=== PATIENT | female | born 1970 | race Caucasian/White ===

== ENCOUNTER → 2016-07-06 | Outpatient (CLI) | payer OTHER ==
--- NOTE | 2016-07-06 11:37 | REP ---
Clinical: Pain. Technique: AP, lateral, bilateral oblique views of the right foot. Findings: Age-related degenerative changes are appreciated primarily involving the tarsometatarsal joints and talonavicular joint. No acute fracture dislocation. No subcutaneous emphysema or radiodense foreign body. Impression: Moderate age-related degenerative changes. Signed by Jay Aguillon MD 07/06/2016 11:28 A
== END ==
LOC: M WUC 11:03
PROVIDERS: ATTEND Physician Assistant
DX: M79.671 Pain in right foot (principal); M19.071 Primary osteoarthritis, right ankle and foot

== ENCOUNTER → 2016-07-14 | Outpatient (REF) | payer OTHER ==
[2016-07-14 15:33] LABS: MEAN CORPUSCULAR HEMOGLOBIN 32.2 pg (27.0-33.0); MEAN CORPUSCULAR HGB CONC 33.9 g/dl (32.0-36.5); RED CELL DISTRIBUTION WIDTH 11.8 % (11.5-14.5); WHITE BLOOD COUNT 13.5 K/mm3 (4.0-10.0)
[2016-07-14 15:38] LABS: ALBUMIN 4.1 GM/DL (3.2-5.2); ALBUMIN/GLOBULIN RATIO 1.24 (1.00-1.93); ALKALINE PHOSPHATASE 77 U/L (45-117); ALT/SGPT 25 U/L (12-78); ANION GAP 7 MEQ/L (8-16); AST/SGOT 14 U/L (15-37); BILIRUBIN,TOTAL 0.3 MG/DL (0.2-1.0); BLOOD UREA NITROGEN 19 MG/DL (7-18); CALCIUM LEVEL 9.5 MG/DL (8.5-10.1); CARBON DIOXIDE LEVEL 26 MEQ/L (21-32); CHLORIDE LEVEL 107 MEQ/L (98-107); CHOLESTEROL LEVEL 228 MG/DL (<200); CREATININE FOR GFR 0.98 MG/DL (0.55-1.02); GLOMERULAR FILTRATION RATE > 60.0 (>58); GLUCOSE, FASTING 89 MG/DL (70-105); POTASSIUM SERUM 4.7 MEQ/L (3.5-5.1); SODIUM LEVEL 140 MEQ/L (136-145); TOTAL PROTEIN 7.4 GM/DL (6.4-8.2); TRIGLYCERIDES LEVEL 109 MG/DL (<150)
== END ==
LOC: M SFHCSACK 11:29
PROVIDERS: ATTEND Physician Assistant
DX: F17.200 Nicotine dependence, unspecified, uncomplicated (principal); R42 Dizziness and giddiness; E78.2 Mixed hyperlipidemia

== ENCOUNTER → 2016-08-18 | Outpatient (REF) | payer OTHER ==
[2016-08-18 16:28] LABS: FREE T4 1.02 NG/DL (0.76-1.46)
== END ==
LOC: M SFHCSACK 10:55
PROVIDERS: ATTEND Physician Assistant
DX: L65.9 Nonscarring hair loss, unspecified (principal)

== ENCOUNTER → 2016-11-15 | Outpatient (REF) | payer OTHER ==
[~2016-11-15] MED LIST: ALBU17IN PO; CEPH500C PO; HYDR-3713 PO; unknown antibiotic PO
[2016-11-15 16:22] LABS: ALBUMIN/GLOBULIN RATIO 1.25 (1.00-1.93); ALKALINE PHOSPHATASE 76 U/L (45-117); ALT/SGPT 24 U/L (12-78); ANION GAP 9 MEQ/L (8-16); AST/SGOT 11 U/L (15-37); BILIRUBIN,TOTAL 0.3 MG/DL (0.2-1.0); BLOOD UREA NITROGEN 13 MG/DL (7-18); CARBON DIOXIDE LEVEL 25 MEQ/L (21-32); CHLORIDE LEVEL 105 MEQ/L (98-107); CHOLESTEROL LEVEL 249 MG/DL (<200); CREATININE FOR GFR 0.95 MG/DL (0.55-1.02); GLOMERULAR FILTRATION RATE > 60.0 (>58); GLUCOSE, FASTING 92 MG/DL (70-105); POTASSIUM SERUM 4.6 MEQ/L (3.5-5.1); SODIUM LEVEL 139 MEQ/L (136-145); TOTAL PROTEIN 7.2 GM/DL (6.4-8.2); TRIGLYCERIDES LEVEL 120 MG/DL (<150)
[2016-11-15 16:28] LABS: BASO # 0.1 K/mm3 (0.0-0.2); BASO % 0.7 % (0.0-1.0); EOS # 0.1 K/mm3 (0.0-0.50); EOS % 1.3 % (0.0-3.0); LARGE UNSTAINED CELL # 0.3 K/mm3 (0.0-0.4); LARGE UNSTAINED CELL % 3.3 % (0.0-4.0); LYMPH # 3.2 K/mm3 (1.5-4.5); LYMPH % 27.5 % (24.0-44.0); MEAN CORPUSCULAR HEMOGLOBIN 33.5 pg (27.0-33.0); MEAN CORPUSCULAR HGB CONC 34.1 g/dl (32.0-36.5); MEAN CORPUSCULAR VOLUME 98.2 fl (80.0-96.0); MONO # 0.9 K/mm3 (0.0-0.8); MONO % 8.3 % (0.0-5.0); NEUTROPHILS % 58.8 % (36.0-66.0); PLATELET COUNT, AUTOMATED 264 k/mm3 (150-450); RED CELL DISTRIBUTION WIDTH 12.1 % (11.5-14.5); WHITE BLOOD COUNT 10.2 K/mm3 (4.0-10.0)
== END ==
LOC: M SFHCSACK 08:09
PROVIDERS: ATTEND Physician Assistant
DX: E78.2 Mixed hyperlipidemia (principal)

== ENCOUNTER 2016-11-22 07:22 | Day surgery (SDC) | payer OTHER ==
[~2016-11-22] VITALS: Ht 172.7 cm; Wt 93.0 kg
[~2016-11-22 07:22] MED LIST changes: -ALBU17IN PO; +BUPIVACAINE HCL 0.5% 30 ML VIAL As Ordered ONE; -CEPH500C PO; -HYDR-3713 PO; +LIDOCAINE 2% MDV 20 ML VIAL As Ordered ONE
[2016-11-22] MEDS ORDERED: LR 1,000 ML IV ONE (07:30)
[2016-11-22] MEDS ORDERED: CEPH500C PO (08:01)
[2016-11-22] MEDS ORDERED: ALBU17IN PO (08:01)
[2016-11-22 08:04] LABS: CONTROL LINE UCG INT CTR LINE PRESENT
[2016-11-22] MEDS ORDERED: dexameTHASONE 4 MG/ML 1ML VIAL (J1100) As Ordered ONE (08:55)
[2016-11-22] MEDS ORDERED: MIDAZOLAM INJ 2 MG/2 ML VIAL (J2250) As Ordered ONE (08:57)
[2016-11-22] MEDS ORDERED: fentaNYL 100 MCG/2 ML INJECTION (J3010) As Ordered ONE (08:57)
[2016-11-22] MEDS ORDERED: PROPOFOL 200 MG/20 ML VIAL As Ordered ONE (08:57)
[2016-11-22] MEDS ORDERED: HYDR-3713 PO (09:48)
[2016-11-22 11:05] VITALS: BP 122/79
--- NOTE | 2016-11-22 23:24 | RO ---
DATE OF PROCEDURE: 11/22/2016 PREPROCEDURE DIAGNOSIS: Right 3rd metatarsal deformity and plantar cyst. POSTPROCEDURE DIAGNOSIS: Right 3rd metatarsal deformity and plantar cyst. OPERATIVE PROCEDURE: Right 3rd metatarsal shortening osteotomy and excision of plantar cyst. SURGEON: Phil Patel DPM PRIVATE ADVISOR: None. ANESTHESIA: Monitored anesthesia care with preoperative injection of 12 mL of 1:1 mixture of 1% lidocaine and plain 0.50% Marcaine. ESTIMATED BLOOD LOSS: Minimal. MATERIALS: Arthrex 2.5, headless screw, #3-0 Vicryl, #4-0 Vicryl, #4-0 nylon and #3-0 nylon INJECTABLES: 1 mL Decadron. COMPLICATIONS: None. CONDITION: Stable. SPECIMEN: Cyst right plantar foot. Cecelia Fuller if a 46-year-old female presents to [facility] with complaints of painful metatarsal deformity and plantar cyst. She presents today for surgical correction. The patient's side and site were identified and marked in preoperative holding area. Consent was reviewed and obtained. All risks, complications and alternatives to the procedure were explained to the patient in detail. All questions were answered. DESCRIPTION OF OPERATION: The patient was brought to the operating room and placed on operating room table in supine position. Monitored anesthesia care was delivered by the anesthesia team. Preoperative injection of 12 mL of 1:1 mixture of 1% lidocaine plain and 0.50% Marcaine plain were injected into the right foot. The patient received Ancef preoperatively. Right foot was prepped and draped in normal sterile fashion. Tourniquet was applied to the right ankle and inflated to 250 mmHg. A dorsal incision was drawn over the 3rd metatarsal phalangeal joint and carried through with a #15 blade. Dissection was carried down until the joint was identified. A linear incision was made exposing the metatarsal head. A McGlamry elevator was used to free the medial, lateral and plantar structures surrounding the 3rd metatarsal head. Following this an osteotomy was performed of the head using sagittal saw. The metatarsal head was transposed proximally approximately 4 mm. This was fixated with an Arthrex 2.5 headless screw. The overlying bone ledge was removed with rongeur and smoothed with rasp. Site was irrigated with normal saline. Capsular repair was performed with #3-0 Vicryl, subcutaneous closure with #4-0 Vicryl and skin closed with #4-0 nylon. Next, attention was paid to the plantar cyst. The overlying callous was debrided and the cyst was noted to penetrate through the dermis. This was excised in elliptical fashion using #15 blade and this was sent for pathology. Plantar incision was repaired with #3-0 nylon. 1 mL Decadron was injected postoperatively. Sterile dressings were applied. Tourniquet was deflated. The patient was brought to post anesthesia care unit (PACU), vitals signs stable, neurovascular status intact. She will be partial weightbearing to the right foot. She will start her prescribed antibiotics. She will followup in office in two days.
== END 2016-11-22 11:21 | disposition home or self-care (01) ==
LOC: M SDC 07:22
PROVIDERS: ATTEND Podiatrist Foot & Ankle Surgery
DX: L72.3 Sebaceous cyst (principal); Q66.9 Congenital deformity of feet, unspecified; F41.9 Anxiety disorder, unspecified; F32.9 Major depressive disorder, single episode, unspecified
CPT/HCPCS: 28043; 28308; 84703; 88304; 97116; C1776

== ENCOUNTER → 2017-02-09 | Outpatient (REF) | payer OTHER ==
[~2017-02-09] MED LIST changes: +ALBU17IN PO; -BUPIVACAINE HCL 0.5% 30 ML VIAL As Ordered ONE; +CEPH500C PO; +HYDR-3713 PO; -LIDOCAINE 2% MDV 20 ML VIAL As Ordered ONE
== END ==
LOC: M LAB REF 11:43
PROVIDERS: ATTEND Physician Assistant
DX: L02.412 Cutaneous abscess of left axilla (principal)

== ENCOUNTER → 2017-03-22 | Outpatient (CLI) | payer OTHER ==
--- NOTE | 2017-03-22 18:16 | REP ---
AP, LATERAL THORACIC SPINE, TWO VIEWS: HISTORY: Muscle strain. There is no acute fracture or subluxation. The intervertebral discs are normal in height. IMPRESSION:There is no acute fracture or subluxation. Signed by Gorge Durham MD 03/22/2017 06:26 P
--- NOTE | 2017-03-22 18:17 | REP ---
PARTIAL LUMBAR SPINE, THREE VIEWS: HISTORY: Muscle strain. There is no acute fracture. The L4-5 and L5-S1 intervertebral discs are decreased in height consistent with disc degeneration. There are 3 mm of retrolisthesis of L5 on S1. IMPRESSION: Degenerative change as described above. Signed by Gorge Durham MD 03/22/2017 06:27 P
--- NOTE | 2017-03-22 18:27 | REP ---
AP AND LATERAL CERVICAL SPINE: HISTORY: Muscle strain. There is no acute fracture. The C4-5 intervertebral disc is decreased in height consistent with disc degeneration. Osteophytes are present on C4 and C5. There are 2 mm of retrolisthesis of C4 and C5. IMPRESSION: Degenerative change as described above. Signed by Gorge Durham MD 03/22/2017 06:27 P
== END ==
LOC: M WUC 16:42
PROVIDERS: ATTEND Physician Assistant
DX: S16.1XXA Strain of muscle, fascia and tendon at neck level, initial encounter (principal); M54.6 Pain in thoracic spine; M51.36 Other intervertebral disc degeneration, lumbar region; M50.321 Other cervical disc degeneration at C4-C5 level; X58.XXXA Exposure to other specified factors, initial encounter; Y92.9 Unspecified place or not applicable; Y99.8 Other external cause status

== ENCOUNTER → 2017-03-28 | Outpatient (REF) | payer OTHER ==
[2017-03-28 14:56] LABS: BASO # 0.1 10^3/uL (0.0-0.2); BASO % 0.8 % (0.0-1.0); EOS # 0.1 10^3/uL (0.0-0.50); IMMATURE GRANULOCYTE % 0.2 % (0-0); LYMPH # 3.2 10^3/uL (1.5-4.5); LYMPH % 25.9 % (24.0-44.0); MEAN CORPUSCULAR HGB CONC 34.4 g/dl (32.0-36.5); MEAN CORPUSCULAR VOLUME 93.1 fl (80.0-96.0); MONO # 0.9 10^3/uL (0.0-0.8); MONO % 7.4 % (0.0-5.0); NEUTROPHILS # 7.9 10^3/uL (1.8-7.7); NEUTROPHILS % 64.7 % (36.0-66.0); PLATELET COUNT, AUTOMATED 261 10^3/uL (150-450); RED CELL DISTRIBUTION WIDTH 12.2 % (11.5-14.5); WHITE BLOOD COUNT 12.2 10^3/uL (4.0-10.0)
[2017-03-28 15:20] LABS: ALBUMIN 4.1 GM/DL (3.2-5.2); ALBUMIN/GLOBULIN RATIO 1.32 (1.00-1.93); ALKALINE PHOSPHATASE 79 U/L (45-117); ALT/SGPT 22 U/L (12-78); ANION GAP 5 MEQ/L (8-16); AST/SGOT 12 U/L (7-37); BILIRUBIN,TOTAL 0.4 MG/DL (0.2-1.0); BLOOD UREA NITROGEN 15 MG/DL (7-18); CALCIUM LEVEL 9.4 MG/DL (8.5-10.1); CARBON DIOXIDE LEVEL 28 MEQ/L (21-32); CHLORIDE LEVEL 109 MEQ/L (98-107); CHOLESTEROL LEVEL 210 MG/DL (<200); GLOMERULAR FILTRATION RATE > 60.0 (>58); GLUCOSE, FASTING 91 MG/DL (70-105); POTASSIUM SERUM 4.6 MEQ/L (3.5-5.1); SODIUM LEVEL 142 MEQ/L (136-145); TOTAL PROTEIN 7.2 GM/DL (6.4-8.2); TRIGLYCERIDES LEVEL 70 MG/DL (<150)
== END ==
LOC: M SFHCSACK 07:55
PROVIDERS: ATTEND Physician Assistant
DX: F41.0 Panic disorder [episodic paroxysmal anxiety] (principal); E78.2 Mixed hyperlipidemia

== ENCOUNTER → 2017-07-01 | Outpatient (CLI) | payer OTHER ==
[2017-07-01 17:11] LABS: HEMOGLOBIN 14.2 g/dl (12.0-16.0); MEAN CORPUSCULAR HEMOGLOBIN 31.7 pg (27.0-33.0); MEAN CORPUSCULAR HGB CONC 33.8 g/dl (32.0-36.5); MEAN CORPUSCULAR VOLUME 93.8 fl (80.0-96.0); PLATELET COUNT, AUTOMATED 251 10^3/uL (150-450); RED BLOOD COUNT 4.48 10^6/uL (4.00-5.40); RED CELL DISTRIBUTION WIDTH 12.1 % (11.5-14.5); WHITE BLOOD COUNT 9.9 10^3/uL (4.0-10.0)
[2017-07-01 17:24] LABS: ANION GAP 8 MEQ/L (8-16); BLOOD UREA NITROGEN 13 MG/DL (7-18); CALCIUM LEVEL 9.3 MG/DL (8.5-10.1); CARBON DIOXIDE LEVEL 25 MEQ/L (21-32); CHLORIDE LEVEL 109 MEQ/L (98-107); CREATININE FOR GFR 1.06 MG/DL (0.55-1.30); GLOMERULAR FILTRATION RATE 59.4 (>58); GLUCOSE, FASTING 99 MG/DL (70-100); POTASSIUM SERUM 4.4 MEQ/L (3.5-5.1); SODIUM LEVEL 142 MEQ/L (136-145)
== END ==
LOC: M WUC 11:16
DX: Z01.818 Encounter for other preprocedural examination (principal); M20.62 Acquired deformities of toe(s), unspecified, left foot
CPT/HCPCS: 80048

== ENCOUNTER 2017-07-06 09:37 | Day surgery (SDC) | payer OTHER ==
[2017-07-06 10:31] LABS: CONTROL LINE UCG INT CTR LINE PRESENT; URINE PREG TEST NEGATIVE (NEGATIVE)
[2017-07-06] MEDS: LR 1,000 ML IV ×2 (10:57)
[2017-07-06] MEDS ORDERED: fentaNYL 100 MCG/2 ML INJECTION (J3010) As Ordered ×2 (12:27)
[2017-07-06] MEDS ORDERED: LIDOCAINE 2% INJ 100 MG/5 ML SDV (FOR ANES.) As Ordered ×2 (12:28)
[2017-07-06] MEDS ORDERED: PROPOFOL 200 MG/20 ML VIAL As Ordered ×4 (12:28)
[2017-07-06] MEDS ORDERED: MIDAZOLAM INJ 2 MG/2 ML VIAL (J2250) As Ordered ×2 (12:28)
[2017-07-06] MEDS: LIDOCAINE 1% MDV 20ML VIAL As Ordered ×2 (13:39)
[2017-07-06] MEDS: BUPIVACAINE HCL 0.5% 10 ML VIAL As Ordered ×2 (13:39)
[2017-07-06] MEDS: dexameTHASONE 4 MG/ML 1ML VIAL (J1100) As Ordered ×2 (14:15)
== END 2017-07-06 15:28 | disposition home or self-care (01) ==
LOC: M SDC 09:37
DX: M21.6X2 Other acquired deformities of left foot (principal); E78.00 Pure hypercholesterolemia, unspecified; M72.2 Plantar fascial fibromatosis; M77.32 Calcaneal spur, left foot; M77.31 Calcaneal spur, right foot; F12.90 Cannabis use, unspecified, uncomplicated; Z72.0 Tobacco use
CPT/HCPCS: 28308

== ENCOUNTER → 2017-12-01 | Outpatient (CLI) | payer OTHER ==
[2017-12-01 19:57] LABS: ALBUMIN 4.3 GM/DL (3.2-5.2); ALBUMIN/GLOBULIN RATIO 1.23 (1.00-1.93); ALKALINE PHOSPHATASE 103 U/L (45-117); ALT/SGPT 21 U/L (12-78); ANION GAP 8 MEQ/L (8-16); AST/SGOT 10 U/L (7-37); BILIRUBIN,TOTAL 0.4 MG/DL (0.2-1.0); BLOOD UREA NITROGEN 11 MG/DL (7-18); C REACTIVE PROTEIN QUANTITATIV < 0.30 MG/DL (0.00-0.30); CALCIUM LEVEL 10.1 MG/DL (8.5-10.1); CARBON DIOXIDE LEVEL 24 MEQ/L (21-32); CHLORIDE LEVEL 109 MEQ/L (98-107); CREATININE FOR GFR 1.12 MG/DL (0.55-1.30); GLOMERULAR FILTRATION RATE 55.8 (>58); GLUCOSE, FASTING 83 MG/DL (70-100); LIPASE 433 U/L (73-393); POTASSIUM SERUM 4.3 MEQ/L (3.5-5.1); SODIUM LEVEL 141 MEQ/L (136-145); TOTAL PROTEIN 7.8 GM/DL (6.4-8.2)
[2017-12-01 20:07] LABS: BASO # 0.1 10^3/uL (0.0-0.2); BASO % 0.6 % (0.0-1.0); EOS % 0.3 % (0.0-3.0); HEMATOCRIT 42.8 % (36.0-47.0); HEMOGLOBIN 14.6 g/dl (12.0-15.5); IMMATURE GRANULOCYTE % 0.3 % (0-3.0); LYMPH # 2.9 10^3/uL (1.5-4.5); LYMPH % 24.3 % (24.0-44.0); MEAN CORPUSCULAR HEMOGLOBIN 31.8 pg (27.0-33.0); MEAN CORPUSCULAR HGB CONC 34.1 g/dl (32.0-36.5); MEAN CORPUSCULAR VOLUME 93.2 fl (80.0-96.0); MONO # 0.9 10^3/uL (0.0-0.8); MONO % 7.9 % (0.0-5.0); NEUTROPHILS # 7.8 10^3/uL (1.8-7.7); NEUTROPHILS % 66.6 % (36.0-66.0); PLATELET COUNT, AUTOMATED 278 10^3/uL (150-450); RED BLOOD COUNT 4.59 10^6/uL (4.00-5.40); RED CELL DISTRIBUTION WIDTH 12.1 % (11.5-14.5); WHITE BLOOD COUNT 11.7 10^3/uL (4.0-10.0)
== END ==
LOC: M WUC 15:48
DX: R11.2 Nausea with vomiting, unspecified (principal); R63.4 Abnormal weight loss
CPT/HCPCS: 83690

== ENCOUNTER → 2017-12-08 | Outpatient (CLI) | payer OTHER ==
[~2017-12-08] MED LIST changes: -ALBU17IN PO; -CEPH500C PO; +GASTROGRAFIN SOLUTION 30ML (Q9963) As Ordered; -HYDR-3713 PO; +ISOVUE-370 76% 100ML VIAL (Q9967) As Ordered; -unknown antibiotic PO
== END ==
LOC: M RAD 14:04
DX: R11.2 Nausea with vomiting, unspecified (principal); R63.4 Abnormal weight loss; K76.89 Other specified diseases of liver; K57.30 Diverticulosis of large intestine without perforation or abscess without bleeding; E27.9 Disorder of adrenal gland, unspecified
CPT/HCPCS: Q9963

== ENCOUNTER 2017-12-20 11:49 | Day surgery (SDC) | payer OTHER ==
[2017-12-20] MEDS ORDERED: fentaNYL 100 MCG/2 ML INJECTION (J3010) As Ordered (13:41)
[2017-12-20] MEDS ORDERED: LIDOCAINE 2% INJ 100 MG/5 ML SDV (FOR ANES.) As Ordered (13:41)
[2017-12-20] MEDS ORDERED: LIDOCAINE 2% INJ 100 MG/5 ML SYRINGE As Ordered (13:41)
[2017-12-20] MEDS ORDERED: PROPOFOL 200 MG/20 ML VIAL As Ordered (13:48)
== END 2017-12-20 14:32 | disposition home or self-care (01) ==
LOC: M OPP 11:49
DX: K22.8 Other specified diseases of esophagus (principal); K44.9 Diaphragmatic hernia without obstruction or gangrene; K31.9 Disease of stomach and duodenum, unspecified; F17.210 Nicotine dependence, cigarettes, uncomplicated; J45.909 Unspecified asthma, uncomplicated; M25.60 Stiffness of unspecified joint, not elsewhere classified; F41.9 Anxiety disorder, unspecified; F32.9 Major depressive disorder, single episode, unspecified; R51 Headache; R06.83 Snoring; Z79.899 Other long term (current) drug therapy; Z98.51 Tubal ligation status; Z87.09 Personal history of other diseases of the respiratory system
CPT/HCPCS: 43239

== ENCOUNTER 2018-01-15 11:04 | Emergency (ER) | payer OTHER ==
[2018-01-15] MEDS ORDERED: MORPHINE 2 MG/ML 1ML SYRINGE (J2270) IV (11:15)
[2018-01-15] MEDS: ONDANSETRON 4MG/2ML VIAL (J2405) IV (11:20)
[2018-01-15] MEDS: NS 1,000 ML IV ×2 (11:20→12:54)
[2018-01-15 11:31] LABS: BASO # 0.1 10^3/uL (0.0-0.2); BASO % 0.6 % (0.0-1.0); EOS % 0.3 % (0.0-3.0); HEMATOCRIT 41.1 % (36.0-47.0); HEMOGLOBIN 14.2 g/dl (12.0-15.5); IMMATURE GRANULOCYTE % 0.4 % (0-3.0); LYMPH # 2.2 10^3/uL (1.5-4.5); LYMPH % 19.9 % (24.0-44.0); MEAN CORPUSCULAR HEMOGLOBIN 31.8 pg (27.0-33.0); MEAN CORPUSCULAR HGB CONC 34.5 g/dl (32.0-36.5); MEAN CORPUSCULAR VOLUME 92.2 fl (80.0-96.0); MONO # 0.7 10^3/uL (0.0-0.8); MONO % 6.6 % (0.0-5.0); NEUTROPHILS # 8.1 10^3/uL (1.8-7.7); NEUTROPHILS % 72.2 % (36.0-66.0); PLATELET COUNT, AUTOMATED 324 10^3/uL (150-450); RED BLOOD COUNT 4.46 10^6/uL (4.00-5.40); WHITE BLOOD COUNT 11.3 10^3/uL (4.0-10.0)
[2018-01-15 11:51] LABS: CONTROL LINE HCG INT CTR LINE PRESENT; HCG, SERUM QUALITATIVE NEGATIVE (NEGATIVE)
[2018-01-15 11:58] LABS: ALBUMIN 3.8 GM/DL (3.2-5.2); ALBUMIN/GLOBULIN RATIO 1.06 (1.00-1.93); ALKALINE PHOSPHATASE 86 U/L (45-117); ALT/SGPT 20 U/L (12-78); AMYLASE 60 U/L (25-115); ANION GAP 8 MEQ/L (8-16); AST/SGOT 14 U/L (7-37); BILIRUBIN,DIRECT 0.1 MG/DL (0.0-0.2); BILIRUBIN,TOTAL 0.5 MG/DL (0.2-1.0); BLOOD UREA NITROGEN 13 MG/DL (7-18); CALCIUM LEVEL 9.3 MG/DL (8.5-10.1); CARBON DIOXIDE LEVEL 23 MEQ/L (21-32); CHLORIDE LEVEL 110 MEQ/L (98-107); CREATININE FOR GFR 1.08 MG/DL (0.55-1.30); GLOMERULAR FILTRATION RATE 58.1 (>58); GLUCOSE, FASTING 111 MG/DL (70-100); LIPASE 291 U/L (73-393); POTASSIUM SERUM 4.2 MEQ/L (3.5-5.1); SODIUM LEVEL 141 MEQ/L (136-145); TOTAL PROTEIN 7.4 GM/DL (6.4-8.2)
[2018-01-15 12:00] LABS: LACTIC ACID SEPSIS PROTOCOL 1.9 MMOL/L (0.4-2.0)
[2018-01-15 12:23] LABS: AMPHETAMINES LEVEL URINE NEGATIVE (NEGATIVE); BARBITURATES URINE NEGATIVE (NEGATIVE); BENZODIAZEPINES URINE NEGATIVE (NEGATIVE); CANNABINOIDS URINE POSITIVE (NEGATIVE); COCAINE METABOLITE URINE NEGATIVE (NEGATIVE); METHADONE URINE NEGATIVE (NEGATIVE); OPIATES URINE NEGATIVE (NEGATIVE); PHENCYCLIDINE URINE NEGATIVE (NEGATIVE)
[2018-01-15] MEDS ORDERED: ISOVUE-370 76% 100ML VIAL (Q9967) As Ordered (12:49)
[2018-01-15] MEDS: LORazepam 2 MG/ML VIAL (J2060) IV (12:54)
== END 2018-01-15 16:46 | disposition home or self-care (01) ==
LOC: M ED 11:04
DX: R11.10 Vomiting, unspecified (principal); F12.188 Cannabis abuse with other cannabis-induced disorder; F41.9 Anxiety disorder, unspecified; F32.9 Major depressive disorder, single episode, unspecified; F17.200 Nicotine dependence, unspecified, uncomplicated
CPT/HCPCS: J2405

== ENCOUNTER → 2018-01-19 | Outpatient (CLI) | payer OTHER | LOC: M RAD 17:36 | DX: R11.2 Nausea with vomiting, unspecified (principal); R63.4 Abnormal weight loss ==

== ENCOUNTER 2018-02-01 07:54 | Inpatient (IN) | payer OTHER ==
[2018-02-01 09:07] LABS: BASO % 0.3 % (0.0-1.0); EOS % 0.1 % (0.0-3.0); HEMATOCRIT 36.3 % (36.0-47.0); HEMOGLOBIN 12.6 g/dl (12.0-15.5); IMMATURE GRANULOCYTE % 0.7 % (0-3.0); LYMPH # 1.4 10^3/uL (1.5-4.5); MEAN CORPUSCULAR HEMOGLOBIN 32.8 pg (27.0-33.0); MEAN CORPUSCULAR HGB CONC 34.7 g/dl (32.0-36.5); MEAN CORPUSCULAR VOLUME 94.5 fl (80.0-96.0); MONO # 1.1 10^3/uL (0.0-0.8); MONO % 6.7 % (0.0-5.0); NEUTROPHILS # 13.2 10^3/uL (1.8-7.7); NEUTROPHILS % 83.2 % (36.0-66.0); PLATELET COUNT, AUTOMATED 255 10^3/uL (150-450); RED BLOOD COUNT 3.84 10^6/uL (4.00-5.40); RED CELL DISTRIBUTION WIDTH 12.9 % (11.5-14.5); WHITE BLOOD COUNT 15.9 10^3/uL (4.0-10.0)
[2018-02-01] MEDS: LORazepam 2 MG/ML VIAL (J2060) IV (09:22)
[2018-02-01] MEDS: PROMETHAZINE INJ 25 MG/ML VIAL (J2550) IM (09:22)
[2018-02-01 09:35] LABS: ALKALINE PHOSPHATASE 64 U/L (45-117); ALT/SGPT 20 U/L (12-78); ANION GAP 8 MEQ/L (8-16); AST/SGOT 7 U/L (7-37); BILIRUBIN,TOTAL 0.3 MG/DL (0.2-1.0); BLOOD UREA NITROGEN 12 MG/DL (7-18); CALCIUM LEVEL 9.5 MG/DL (8.5-10.1); CARBON DIOXIDE LEVEL 25 MEQ/L (21-32); CHLORIDE LEVEL 107 MEQ/L (98-107); CREATININE FOR GFR 0.95 MG/DL (0.55-1.30); GLOMERULAR FILTRATION RATE > 60.0 (>58); GLUCOSE, FASTING 114 MG/DL (70-100); SODIUM LEVEL 140 MEQ/L (136-145)
[2018-02-01 09:36] LABS: ETHYL ALCOHOL (ETHANOL) < 0.003 % (0.000-0.010)
[2018-02-01 09:36] LABS: ALBUMIN 3.4 GM/DL (3.2-5.2); ALBUMIN/GLOBULIN RATIO 1.31 (1.00-1.93); BILIRUBIN,DIRECT < 0.1 MG/DL (0.0-0.2); LIPASE 184 U/L (73-393)
[2018-02-01] MEDS: MORPHINE 4 MG/ML 1ML VIAL/SYRINGE (J2270) IV (11:12)
[2018-02-01] MEDS ORDERED: GLUCAGON FOR INJ 1 MG VIAL (J1610) SC (11:45)
[2018-02-01] MEDS ORDERED: GLUCOSE 4 GM CHEW TABLET PO (11:45)
[2018-02-01] MEDS ORDERED: DEXTROSE 50% 50 ML SYRINGE IV (11:45)
[2018-02-01] MEDS: KETOROLAC 30 MG/ML VIAL (J1885) IV ×2 (12:00→17:53)
[2018-02-01] MEDS ORDERED: CREON-24 CAPSULE PO (12:30)
[2018-02-01 12:44] LABS: C REACTIVE PROTEIN QUANTITATIV < 0.30 MG/DL (0.00-0.30); PREALBUMIN 25.1 MG/DL (20.0-40.0)
[2018-02-01] MEDS ORDERED: PROHANCE 279.3MG/ML 15ML VIAL (A9576) As Ordered (13:26)
[2018-02-01 14:11] LABS: ERYTHROCYTE SEDIMENTATION RATE 8 mm/hr (0-20)
[2018-02-01] MEDS: HEPARIN SOD (PORCINE) 5000 UNITS/ML VIAL SC ×2 (14:54→20:43)
[2018-02-01] MEDS: NS 1,000 ML IV (14:55)
[2018-02-01 15:37] LABS: LACTIC ACID SEPSIS PROTOCOL 1.2 MMOL/L (0.4-2.0)
[2018-02-01] MEDS: PANTOPRAZOLE 40MG INJ (PROTONIX) (C9113) IV (17:53)
[2018-02-01] MEDS: NICOTINE 14 MG/24 HR TRANSDERMAL TD (17:53)
[2018-02-01] MEDS: CREON-24 CAPSULE PO (17:53)
[2018-02-01 18:19] LABS: AMORPHOUS SEDIMENT LARGE (NEGATIVE); APPEARANCE, URINE CLOUDY (CLEAR); BACTERIA, URINE AUTO NEGATIVE (NEGATIVE); BILIRUBIN, URINE AUTO NEGATIVE (NEGATIVE); BLOOD, URINE BLOOD NEGATIVE (NEGATIVE); COLOR, URINE YELLOW (YELLOW); GLUCOSE, URINE (UA) AUTO NEGATIVE (NEGATIVE); KETONE, URINE AUTO NEGATIVE (NEGATIVE); LEUKOCYTE ESTERASE, URINE AUTO NEGATIVE (NEGATIVE); MUCUS, URINE SMALL (NEGATIVE); NITRITE, URINE AUTO NEGATIVE (NEGATIVE); PROTEIN, URINE AUTO NEGATIVE (NEGATIVE); RBC, URINE AUTO 3 /HPF (0-3); SPECIFIC GRAVITY URINE AUTO 1.015 (1.002-1.035); SQUAMOUS EPITHELIAL CELL UR AU 0 /HPF (0-6); UROBILINOGEN, URINE AUTO 0.2 mg/dL (0.0-2.0); WBC, URINE AUTO 1 /HPF (0-3); YEAST LIKE CELL URINE AUTO SMALL
[2018-02-01] MEDS: ONDANSETRON 4MG/2ML VIAL (J2405) IV (20:41)
[2018-02-02] MEDS: NS 1,000 ML IV (00:44)
[2018-02-02 00:47] LABS: BEDSIDE GLUCOSE 109 MG/DL (70-105)
[2018-02-02] MEDS: KETOROLAC 30 MG/ML VIAL (J1885) IV ×2 (05:55→08:57)
[2018-02-02] MEDS: ONDANSETRON 4MG/2ML VIAL (J2405) IV ×3 (05:55→17:03)
[2018-02-02] MEDS: HEPARIN SOD (PORCINE) 5000 UNITS/ML VIAL SC ×3 (05:55→21:32)
[2018-02-02 06:13] LABS: BASO % 0.2 % (0.0-1.0); EOS % 0.1 % (0.0-3.0); IMMATURE GRANULOCYTE % 0.3 % (0-3.0); LYMPH # 1.9 10^3/uL (1.5-4.5); LYMPH % 15.3 % (24.0-44.0); MEAN CORPUSCULAR HEMOGLOBIN 32.3 pg (27.0-33.0); MEAN CORPUSCULAR HGB CONC 34.2 g/dl (32.0-36.5); MEAN CORPUSCULAR VOLUME 94.5 fl (80.0-96.0); MONO % 7.6 % (0.0-5.0); NEUTROPHILS # 9.7 10^3/uL (1.8-7.7); NEUTROPHILS % 76.5 % (36.0-66.0); PLATELET COUNT, AUTOMATED 282 10^3/uL (150-450); RED BLOOD COUNT 4.02 10^6/uL (4.00-5.40); RED CELL DISTRIBUTION WIDTH 12.9 % (11.5-14.5); WHITE BLOOD COUNT 12.7 10^3/uL (4.0-10.0)
[2018-02-02 06:44] LABS: ALBUMIN 3.3 GM/DL (3.2-5.2); ALBUMIN/GLOBULIN RATIO 1.14 (1.00-1.93); ALKALINE PHOSPHATASE 67 U/L (45-117); ALT/SGPT 20 U/L (12-78); AMYLASE 52 U/L (25-115); ANION GAP 4 MEQ/L (8-16); AST/SGOT 11 U/L (7-37); BILIRUBIN,DIRECT 0.1 MG/DL (0.0-0.2); BILIRUBIN,TOTAL 0.4 MG/DL (0.2-1.0); BLOOD UREA NITROGEN 8 MG/DL (7-18); CALCIUM LEVEL 9.1 MG/DL (8.5-10.1); CARBON DIOXIDE LEVEL 26 MEQ/L (21-32); CHLORIDE LEVEL 112 MEQ/L (98-107); CREATININE FOR GFR 0.86 MG/DL (0.55-1.30); GLOMERULAR FILTRATION RATE > 60.0 (>58); GLUCOSE, FASTING 92 MG/DL (70-100); LIPASE 155 U/L (73-393); MAGNESIUM LEVEL 2.3 MG/DL (1.8-2.4); POTASSIUM SERUM 4.2 MEQ/L (3.5-5.1); SODIUM LEVEL 142 MEQ/L (136-145); TOTAL PROTEIN 6.2 GM/DL (6.4-8.2)
[2018-02-02] MEDS ORDERED: GI COCKTAIL 50ML BTL(HYOSCYAMINE/MAALOX/LIDOCAINE VISCOUS)(1:3:1) PO (07:30)
[2018-02-02] MEDS ORDERED: METOCLOPRAMIDE INJ 10MG/2ML VIAL (J2765) IV (07:30)
[2018-02-02] MEDS: NICOTINE 14 MG/24 HR TRANSDERMAL TD (08:54)
[2018-02-02] MEDS: PANTOPRAZOLE 40MG INJ (PROTONIX) (C9113) IV (08:54)
[2018-02-02] MEDS: SUCRALFATE SUSP 1GM/10ML UD PO ×3 (08:55→17:01)
[2018-02-02] MEDS: MORPHINE 4 MG/ML 1ML VIAL/SYRINGE (J2270) IV ×2 (08:56→17:02)
[2018-02-02] MEDS: METOCLOPRAMIDE INJ 10MG/2ML VIAL (J2765) IV ×3 (08:56→21:32)
[2018-02-02] MEDS: GI COCKTAIL 50ML BTL(HYOSCYAMINE/MAALOX/LIDOCAINE VISCOUS)(1:3:1) PO (09:06)
[2018-02-02] MEDS: CREON-24 CAPSULE PO ×3 (09:06→20:00)
[2018-02-02] MEDS: D5W/0.2% SODIUM CHLORIDE 1,000 ML IV ×2 (09:07→20:00)
[2018-02-02] MEDS: INFLUENZA QUADRIVALENT PF VACCINE 0.5ML SYRINGE (90686) IM (09:08)
[2018-02-02] MEDS: GASTROGRAFIN SOLUTION 30ML PO ×2 (10:00→10:35)
[2018-02-02] MEDS ORDERED: ISOVUE-370 76% 100ML VIAL (Q9967) As Ordered (11:49)
[2018-02-03] MEDS: ONDANSETRON 4MG/2ML VIAL (J2405) IV ×4 (00:48→18:00)
[2018-02-03] MEDS: SUCRALFATE SUSP 1GM/10ML UD PO ×4 (00:48→18:00)
[2018-02-03] MEDS: METOCLOPRAMIDE INJ 10MG/2ML VIAL (J2765) IV ×4 (03:12→20:23)
[2018-02-03] MEDS: HEPARIN SOD (PORCINE) 5000 UNITS/ML VIAL SC ×3 (05:35→21:42)
[2018-02-03 07:12] LABS: BASO % 0.2 % (0.0-1.0); EOS % 0.3 % (0.0-3.0); HEMATOCRIT 35.2 % (36.0-47.0); HEMOGLOBIN 12.1 g/dl (12.0-15.5); IMMATURE GRANULOCYTE % 0.3 % (0-3.0); LYMPH # 1.4 10^3/uL (1.5-4.5); LYMPH % 15.3 % (24.0-44.0); MEAN CORPUSCULAR HEMOGLOBIN 32.8 pg (27.0-33.0); MEAN CORPUSCULAR HGB CONC 34.4 g/dl (32.0-36.5); MEAN CORPUSCULAR VOLUME 95.4 fl (80.0-96.0); MONO # 0.8 10^3/uL (0.0-0.8); MONO % 8.9 % (0.0-5.0); NEUTROPHILS # 6.9 10^3/uL (1.8-7.7); PLATELET COUNT, AUTOMATED 232 10^3/uL (150-450); RED BLOOD COUNT 3.69 10^6/uL (4.00-5.40); WHITE BLOOD COUNT 9.1 10^3/uL (4.0-10.0)
[2018-02-03 07:39] LABS: ANION GAP 5 MEQ/L (8-16); BLOOD UREA NITROGEN 5 MG/DL (7-18); CALCIUM LEVEL 8.6 MG/DL (8.5-10.1); CARBON DIOXIDE LEVEL 26 MEQ/L (21-32); CHLORIDE LEVEL 108 MEQ/L (98-107); CREATININE FOR GFR 0.85 MG/DL (0.55-1.30); GLOMERULAR FILTRATION RATE > 60.0 (>58); GLUCOSE, FASTING 90 MG/DL (70-100); MAGNESIUM LEVEL 2.3 MG/DL (1.8-2.4); SODIUM LEVEL 139 MEQ/L (136-145)
[2018-02-03 07:44] LABS: ALBUMIN/GLOBULIN RATIO 1.36 (1.00-1.93); ALKALINE PHOSPHATASE 60 U/L (45-117); ALT/SGPT 18 U/L (12-78); AMYLASE 33 U/L (25-115); AST/SGOT 8 U/L (7-37); BILIRUBIN,DIRECT 0.1 MG/DL (0.0-0.2); BILIRUBIN,TOTAL 0.3 MG/DL (0.2-1.0); LIPASE 103 U/L (73-393); TOTAL PROTEIN 5.2 GM/DL (6.4-8.2)
[2018-02-03] MEDS: CREON-24 CAPSULE PO ×3 (08:00→18:00)
[2018-02-03] MEDS: NICOTINE 14 MG/24 HR TRANSDERMAL TD (09:03)
[2018-02-03] MEDS: PANTOPRAZOLE 40MG INJ (PROTONIX) (C9113) IV (09:04)
[2018-02-03] MEDS: KETOROLAC 30 MG/ML VIAL (J1885) IV (10:07)
[2018-02-03 11:33] LABS: CA19-9 TUMOR MARKER,CARBOHYDRA 26.2 U/ML (<35.0)
[2018-02-03] MEDS ORDERED: PROPOFOL 200 MG/20 ML VIAL As Ordered (13:24)
[2018-02-03] MEDS ORDERED: LIDOCAINE 2% INJ 100 MG/5 ML SDV (FOR ANES.) As Ordered (13:24)
[2018-02-03] MEDS ORDERED: fentaNYL 100 MCG/2 ML INJECTION (J3010) As Ordered (13:24)
[2018-02-04] MEDS: SUCRALFATE SUSP 1GM/10ML UD PO ×4 (00:59→18:04)
[2018-02-04] MEDS: ONDANSETRON 4MG/2ML VIAL (J2405) IV ×3 (00:59→12:00)
[2018-02-04] MEDS: METOCLOPRAMIDE INJ 10MG/2ML VIAL (J2765) IV ×2 (02:42→09:50)
[2018-02-04] MEDS: HEPARIN SOD (PORCINE) 5000 UNITS/ML VIAL SC ×3 (05:10→21:17)
[2018-02-04 07:10] LABS: BASO % 0.3 % (0.0-1.0); EOS % 0.5 % (0.0-3.0); HEMATOCRIT 36.3 % (36.0-47.0); HEMOGLOBIN 12.6 g/dl (12.0-15.5); IMMATURE GRANULOCYTE % 0.2 % (0-3.0); LYMPH # 1.5 10^3/uL (1.5-4.5); LYMPH % 17.3 % (24.0-44.0); MEAN CORPUSCULAR HEMOGLOBIN 32.8 pg (27.0-33.0); MEAN CORPUSCULAR HGB CONC 34.7 g/dl (32.0-36.5); MEAN CORPUSCULAR VOLUME 94.5 fl (80.0-96.0); MONO # 0.7 10^3/uL (0.0-0.8); MONO % 8.4 % (0.0-5.0); NEUTROPHILS # 6.4 10^3/uL (1.8-7.7); NEUTROPHILS % 73.3 % (36.0-66.0); PLATELET COUNT, AUTOMATED 217 10^3/uL (150-450); RED BLOOD COUNT 3.84 10^6/uL (4.00-5.40); RED CELL DISTRIBUTION WIDTH 12.9 % (11.5-14.5); WHITE BLOOD COUNT 8.8 10^3/uL (4.0-10.0)
[2018-02-04 07:37] LABS: ALBUMIN 3.2 GM/DL (3.2-5.2); ALBUMIN/GLOBULIN RATIO 1.19 (1.00-1.93); ALKALINE PHOSPHATASE 63 U/L (45-117); ALT/SGPT 21 U/L (12-78); AMYLASE 27 U/L (25-115); ANION GAP 6 MEQ/L (8-16); AST/SGOT 11 U/L (7-37); BILIRUBIN,DIRECT 0.1 MG/DL (0.0-0.2); BILIRUBIN,TOTAL 0.4 MG/DL (0.2-1.0); BLOOD UREA NITROGEN 6 MG/DL (7-18); CALCIUM LEVEL 9.3 MG/DL (8.5-10.1); CARBON DIOXIDE LEVEL 27 MEQ/L (21-32); CHLORIDE LEVEL 108 MEQ/L (98-107); CREATININE FOR GFR 0.93 MG/DL (0.55-1.30); GLOMERULAR FILTRATION RATE > 60.0 (>58); GLUCOSE, FASTING 91 MG/DL (70-100); LIPASE 91 U/L (73-393); MAGNESIUM LEVEL 2.4 MG/DL (1.8-2.4); POTASSIUM SERUM 4.2 MEQ/L (3.5-5.1); SODIUM LEVEL 141 MEQ/L (136-145); TOTAL PROTEIN 5.9 GM/DL (6.4-8.2)
[2018-02-04 08:06] LABS: ANTINUCLEAR ANTIBODIES DIRECT Negative (Negative); IgG SUBCLASS 4(ONLY) 1 mg/dL (2-96)
[2018-02-04] MEDS: NICOTINE 14 MG/24 HR TRANSDERMAL TD (09:50)
[2018-02-04] MEDS: CREON-24 CAPSULE PO ×3 (09:50→18:05)
[2018-02-04] MEDS: PANTOPRAZOLE 40MG INJ (PROTONIX) (C9113) IV (09:50)
[2018-02-05] MEDS: SUCRALFATE SUSP 1GM/10ML UD PO ×2 (00:34→06:36)
[2018-02-05] MEDS: HEPARIN SOD (PORCINE) 5000 UNITS/ML VIAL SC (06:36)
[2018-02-05 06:43] LABS: BASO % 0.3 % (0.0-1.0); EOS % 0.4 % (0.0-3.0); HEMATOCRIT 36.4 % (36.0-47.0); HEMOGLOBIN 12.6 g/dl (12.0-15.5); IMMATURE GRANULOCYTE % 0.4 % (0-3.0); LYMPH # 1.8 10^3/uL (1.5-4.5); LYMPH % 19.3 % (24.0-44.0); MEAN CORPUSCULAR HEMOGLOBIN 32.6 pg (27.0-33.0); MEAN CORPUSCULAR HGB CONC 34.6 g/dl (32.0-36.5); MEAN CORPUSCULAR VOLUME 94.3 fl (80.0-96.0); MONO # 0.8 10^3/uL (0.0-0.8); MONO % 8.7 % (0.0-5.0); NEUTROPHILS # 6.5 10^3/uL (1.8-7.7); NEUTROPHILS % 70.9 % (36.0-66.0); PLATELET COUNT, AUTOMATED 232 10^3/uL (150-450); RED BLOOD COUNT 3.86 10^6/uL (4.00-5.40); RED CELL DISTRIBUTION WIDTH 12.8 % (11.5-14.5); WHITE BLOOD COUNT 9.2 10^3/uL (4.0-10.0)
[2018-02-05 07:27] LABS: ALBUMIN 3.2 GM/DL (3.2-5.2); ALKALINE PHOSPHATASE 68 U/L (45-117); ALT/SGPT 27 U/L (12-78); AMYLASE 30 U/L (25-115); ANION GAP 5 MEQ/L (8-16); AST/SGOT 12 U/L (7-37); BILIRUBIN,DIRECT < 0.1 MG/DL (0.0-0.2); BILIRUBIN,TOTAL 0.4 MG/DL (0.2-1.0); BLOOD UREA NITROGEN 10 MG/DL (7-18); CALCIUM LEVEL 8.7 MG/DL (8.5-10.1); CARBON DIOXIDE LEVEL 27 MEQ/L (21-32); CHLORIDE LEVEL 106 MEQ/L (98-107); GLOMERULAR FILTRATION RATE > 60.0 (>58); GLUCOSE, FASTING 83 MG/DL (70-100); LIPASE 114 U/L (73-393); MAGNESIUM LEVEL 2.2 MG/DL (1.8-2.4); POTASSIUM SERUM 3.9 MEQ/L (3.5-5.1); SODIUM LEVEL 138 MEQ/L (136-145); TOTAL PROTEIN 6.1 GM/DL (6.4-8.2)
[2018-02-05] MEDS: PANTOPRAZOLE 40MG INJ (PROTONIX) (C9113) IV (08:14)
[2018-02-05] MEDS: CREON-24 CAPSULE PO (08:14)
[2018-02-05] MEDS: NICOTINE 14 MG/24 HR TRANSDERMAL TD (08:15)
[2018-02-05] MEDS ORDERED: ISOVUE-370 76% 100ML VIAL (Q9967) As Ordered (08:42)
== END 2018-02-05 11:46 | disposition home or self-care (01) | DRG 251 ==
LOC: M MS5PR 02-02 12:08 → M ED 07:54 → M ED INP 11:36 → M PCU 14:33
PROC: 0DB68ZX Excision of Stomach, Via Natural or Artificial Opening Endoscopic, Diagnostic (ICD-10-PCS; principal; 2018-02-03 13:37)
DX: R10.9 Unspecified abdominal pain (principal); K86.1 Other chronic pancreatitis; R55 Syncope and collapse; K22.70 Barrett's esophagus without dysplasia; N28.1 Cyst of kidney, acquired; F10.10 Alcohol abuse, uncomplicated; F17.210 Nicotine dependence, cigarettes, uncomplicated; D35.00 Benign neoplasm of unspecified adrenal gland; K44.9 Diaphragmatic hernia without obstruction or gangrene; R63.4 Abnormal weight loss

== ENCOUNTER 2018-02-10 17:01 | Emergency (ER) | payer OTHER ==
[2018-02-10] MEDS: METOCLOPRAMIDE INJ 10MG/2ML VIAL (J2765) IV (17:42)
[2018-02-10] MEDS: MORPHINE 4 MG/ML 1ML VIAL/SYRINGE (J2270) IV (17:42)
[2018-02-10] MEDS: NS 1,000 ML IV (17:47)
[2018-02-10 18:00] LABS: BASO % 0.4 % (0.0-1.0); EOS % 0.1 % (0.0-3.0); HEMATOCRIT 32.5 % (36.0-47.0); HEMOGLOBIN 11.2 g/dl (12.0-15.5); IMMATURE GRANULOCYTE % 0.5 % (0-3.0); LYMPH % 8.6 % (24.0-44.0); MEAN CORPUSCULAR HEMOGLOBIN 33.1 pg (27.0-33.0); MEAN CORPUSCULAR HGB CONC 34.5 g/dl (32.0-36.5); MEAN CORPUSCULAR VOLUME 96.2 fl (80.0-96.0); MONO # 0.8 10^3/uL (0.0-0.8); NEUTROPHILS # 9.5 10^3/uL (1.8-7.7); NEUTROPHILS % 83.4 % (36.0-66.0); PLATELET COUNT, AUTOMATED 200 10^3/uL (150-450); RED BLOOD COUNT 3.38 10^6/uL (4.00-5.40); RED CELL DISTRIBUTION WIDTH 13.6 % (11.5-14.5); WHITE BLOOD COUNT 11.4 10^3/uL (4.0-10.0)
[2018-02-10 18:15] LABS: LACTIC ACID SEPSIS PROTOCOL 1.3 MMOL/L (0.4-2.0)
[2018-02-10 18:24] LABS: ANION GAP 7 MEQ/L (8-16); AST/SGOT 12 U/L (7-37); BLOOD UREA NITROGEN 10 MG/DL (7-18); CALCIUM LEVEL 9.6 MG/DL (8.5-10.1); CARBON DIOXIDE LEVEL 26 MEQ/L (21-32); CHLORIDE LEVEL 110 MEQ/L (98-107); CREATININE FOR GFR 0.87 MG/DL (0.55-1.30); GLOMERULAR FILTRATION RATE > 60.0 (>58); GLUCOSE, FASTING 107 MG/DL (70-100); POTASSIUM SERUM 4.4 MEQ/L (3.5-5.1); SODIUM LEVEL 143 MEQ/L (136-145)
[2018-02-10 18:25] LABS: ALBUMIN 3.6 GM/DL (3.2-5.2); ALBUMIN/GLOBULIN RATIO 1.29 (1.00-1.93); ALKALINE PHOSPHATASE 73 U/L (45-117); ALT/SGPT 37 U/L (12-78); BILIRUBIN,DIRECT 0.1 MG/DL (0.0-0.2); BILIRUBIN,TOTAL 0.5 MG/DL (0.2-1.0); LIPASE 98 U/L (73-393); TOTAL PROTEIN 6.4 GM/DL (6.4-8.2)
[2018-02-10] MEDS: traMADol 50 MG TAB (BULK 4 TAB ED) PO (20:51)
== END 2018-02-10 20:58 | disposition home or self-care (01) ==
LOC: M ED 17:01
DX: R11.10 Vomiting, unspecified (principal); K86.1 Other chronic pancreatitis; K22.70 Barrett's esophagus without dysplasia; Z79.899 Other long term (current) drug therapy
CPT/HCPCS: J2270

== ENCOUNTER → 2018-02-13 | Outpatient (REF) | payer OTHER ==
[2018-02-13 15:21] LABS: BASO % 0.4 % (0.0-1.0); EOS # 0.1 10^3/uL (0.0-0.50); EOS % 0.8 % (0.0-3.0); HEMATOCRIT 40.1 % (36.0-47.0); HEMOGLOBIN 13.6 g/dl (12.0-15.5); IMMATURE GRANULOCYTE % 0.2 % (0-3.0); LYMPH % 20.1 % (24.0-44.0); MEAN CORPUSCULAR HEMOGLOBIN 33.2 pg (27.0-33.0); MEAN CORPUSCULAR HGB CONC 33.9 g/dl (32.0-36.5); MEAN CORPUSCULAR VOLUME 97.8 fl (80.0-96.0); MONO # 0.8 10^3/uL (0.0-0.8); MONO % 8.1 % (0.0-5.0); NEUTROPHILS % 70.4 % (36.0-66.0); PLATELET COUNT, AUTOMATED 241 10^3/uL (150-450); RED CELL DISTRIBUTION WIDTH 13.6 % (11.5-14.5); WHITE BLOOD COUNT 9.9 10^3/uL (4.0-10.0)
[2018-02-13 15:25] LABS: ALBUMIN 3.8 GM/DL (3.2-5.2); ALBUMIN/GLOBULIN RATIO 1.27 (1.00-1.93); ALKALINE PHOSPHATASE 73 U/L (45-117); ALT/SGPT 28 U/L (12-78); ANION GAP 5 MEQ/L (8-16); AST/SGOT 10 U/L (7-37); BILIRUBIN,TOTAL 0.3 MG/DL (0.2-1.0); BLOOD UREA NITROGEN 12 MG/DL (7-18); CALCIUM LEVEL 9.8 MG/DL (8.5-10.1); CARBON DIOXIDE LEVEL 27 MEQ/L (21-32); CHLORIDE LEVEL 107 MEQ/L (98-107); CHOLESTEROL LEVEL 198 MG/DL (<200); CHOLESTEROL RISK RATIO 3.735 (<5); CREATININE FOR GFR 0.95 MG/DL (0.55-1.30); FREE T4 1.06 NG/DL (0.76-1.46); GLOMERULAR FILTRATION RATE > 60.0 (>58); GLUCOSE, FASTING 94 MG/DL (70-100); HDL CHOLESTEROL 53 MG/DL (>40); LDL CHOLESTEROL 134 MG/DL (<100); NON-HDL-C 145 MG/DL; POTASSIUM SERUM 4.6 MEQ/L (3.5-5.1); SODIUM LEVEL 139 MEQ/L (136-145); TOTAL 25(OH) VITAMIN D 15.5 NG/ML (30.0-100.0); TOTAL PROTEIN 6.8 GM/DL (6.4-8.2); TRIGLYCERIDES LEVEL 56 MG/DL (<150)
== END ==
LOC: M SFHCSACK 09:50
DX: K21.9 Gastro-esophageal reflux disease without esophagitis (principal); E78.2 Mixed hyperlipidemia; Z83.49 Family history of other endocrine, nutritional and metabolic diseases; E55.9 Vitamin D deficiency, unspecified

== ENCOUNTER → 2018-06-22 | Outpatient (CLI) | payer OTHER ==
[~2018-06-22] MED LIST changes: +ALBU17IN PO; +CEPH500C PO; +CREO24CA PO; -GASTROGRAFIN SOLUTION 30ML (Q9963) As Ordered; +HYDR-3713 PO; -ISOVUE-370 76% 100ML VIAL (Q9967) As Ordered; +NICO14PA TD; +ONDA4TAB6 SL; +PANT40TA3; +PROT1TAB2 PO; +SIMV20TA2 PO; +SUCR1TA PO; +VENTAER INH; +unknown antibiotic PO
--- NOTE | 2018-06-22 14:18 | REPMRS ---
Patient History The patient states she had a clinical breast exam in 2018.No known family history of cancer. denied. Took hormonal contraceptives for 6 years. 3D TOMOSYNTHESIS WAS PERFORMED. Digital Mammo Screening Bilat: June 22, 2018 - Exam #: [id number] Bilateral CC and MLO view(s) were taken. Technologist: Shahida Rothman, Technologist Prior study comparison: July 20, 2013, bilateral bilat screen digital mammo, performed at [facility] ([facility] 2006, bilateral bilat screen digital mammo. FINDINGS: There are scattered fibroglandular densities. There is a fairly symmetric fibroglandular pattern in both breasts. There has been no interval development of masses, areas of architectural distortion or clusters of microcalcifications typical of malignancy. Assessment: BI-RADS/ACR category 2 mammogram. Benign Findings. Recommendation Routine screening mammogram of both breasts in 1 year (for women over age 40). This mammogram was interpreted with the aid of an FDA-approved computer-aided dectection system. Electronically Signed By: Everett Whelan MD 06/22/18 [id number]
--- NOTE | 2018-06-22 18:50 | REP ---
Clinical: IUD positioning . Technique: Transabdominal pelvic ultrasound followed by transvaginal examination for better evaluation of the endometrium and adnexa. Findings: Bladder is collapsed. Heterogeneous uterus measures 4.2 x 3.1 x 3.9 cm with IUD identified in central satisfactory position. Bilateral ovaries are normal in appearance. Right ovary measures 2.5 x 1.4 x 2.0 cm ; Left ovary measures 2.5 x 1.6 x 1.7 cm. No pelvic fluid or adnexal mass lesion. Impression: 1. Normal pelvic ultrasound. IUD in satisfactory position. Electronically Signed by Jay Aguillon MD 06/22/2018 06:41 P
== END ==
LOC: M RAD 13:31
PROVIDERS: ATTEND Nurse Practitioner Family
DX: Z12.31 Encounter for screening mammogram for malignant neoplasm of breast (principal); Z97.5 Presence of (intrauterine) contraceptive device

== ENCOUNTER → 2018-06-23 | Outpatient (REF) | payer OTHER ==
[2018-06-23 14:15] LABS: BASO # 0.1 10^3/uL (0.0-0.2); BASO % 0.9 % (0.0-1.0); EOS # 0.1 10^3/uL (0.0-0.50); HEMATOCRIT 41.8 % (36.0-47.0); HEMOGLOBIN 13.9 g/dl (12.0-15.5); LYMPH # 2.8 10^3/uL (1.5-4.5); LYMPH % 34.2 % (24.0-44.0); MEAN CORPUSCULAR HEMOGLOBIN 31.7 pg (27.0-33.0); MEAN CORPUSCULAR HGB CONC 33.3 g/dl (32.0-36.5); MEAN CORPUSCULAR VOLUME 95.2 fl (80.0-96.0); MONO # 0.8 10^3/uL (0.0-0.8); MONO % 9.4 % (0.0-5.0); NEUTROPHILS # 4.4 10^3/uL (1.8-7.7); NEUTROPHILS % 54.3 % (36.0-66.0); PLATELET COUNT, AUTOMATED 273 10^3/uL (150-450); RED BLOOD COUNT 4.39 10^6/uL (4.00-5.40); WHITE BLOOD COUNT 8.1 10^3/uL (4.0-10.0)
[2018-06-23 14:41] LABS: ALBUMIN 3.8 GM/DL (3.2-5.2); ALT/SGPT 23 U/L (12-78); BILIRUBIN,TOTAL 0.4 MG/DL (0.2-1.0); BLOOD UREA NITROGEN 16 MG/DL (7-18); CALCIUM LEVEL 9.2 MG/DL (8.5-10.1); CARBON DIOXIDE LEVEL 27 MEQ/L (21-32); CHLORIDE LEVEL 109 MEQ/L (98-107); CREATININE FOR GFR 0.94 MG/DL (0.55-1.30); GLOMERULAR FILTRATION RATE > 60.0 (>58); GLUCOSE, FASTING 82 MG/DL (70-100); POTASSIUM SERUM 4.8 MEQ/L (3.5-5.1); SODIUM LEVEL 141 MEQ/L (136-145); TOTAL PROTEIN 6.7 GM/DL (6.4-8.2)
[2018-06-23 14:46] LABS: TOTAL 25(OH) VITAMIN D 9.3 NG/ML (30.0-100.0)
== END ==
LOC: M SFHCSACK 07:55
PROVIDERS: ATTEND Physician Assistant
DX: J45.20 Mild intermittent asthma, uncomplicated (principal); E78.2 Mixed hyperlipidemia; E55.9 Vitamin D deficiency, unspecified

== ENCOUNTER 2018-07-16 21:05 | Emergency (ER) | payer OTHER ==
[~2018-07-16] VITALS: Ht 172.7 cm; Wt 75.0 kg
[2018-07-16] MEDS ORDERED: METOCLOPRAMIDE INJ 10MG/2ML VIAL (J2765) IV ONE (22:00)
[2018-07-16] MEDS ORDERED: KETOROLAC 30 MG/ML VIAL (J1885) IV ONE (22:00)
[2018-07-16 22:23] LABS: BASO % 0.3 % (0.0-1.0); HEMATOCRIT 40.9 % (36.0-47.0); HEMOGLOBIN 14.3 g/dl (12.0-15.5); LYMPH # 0.9 10^3/uL (1.5-4.5); LYMPH % 7.9 % (24.0-44.0); MEAN CORPUSCULAR HEMOGLOBIN 32.3 pg (27.0-33.0); MEAN CORPUSCULAR VOLUME 92.3 fl (80.0-96.0); MONO # 0.2 10^3/uL (0.0-0.8); MONO % 2.1 % (0.0-5.0); NEUTROPHILS # 10.4 10^3/uL (1.8-7.7); NEUTROPHILS % 89.4 % (36.0-66.0); PLATELET COUNT, AUTOMATED 289 10^3/uL (150-450); RED BLOOD COUNT 4.43 10^6/uL (4.00-5.40); WHITE BLOOD COUNT 11.6 10^3/uL (4.0-10.0)
[2018-07-16 22:47] LABS: ALBUMIN 4.1 GM/DL (3.2-5.2); BILIRUBIN,DIRECT 0.1 MG/DL (0.0-0.2); BILIRUBIN,TOTAL 0.5 MG/DL (0.2-1.0); CALCIUM LEVEL 9.7 MG/DL (8.5-10.1); CREATININE FOR GFR 1.1 MG/DL (0.55-1.30); GLOMERULAR FILTRATION RATE 56.7 (>58); POTASSIUM SERUM 4.4 MEQ/L (3.5-5.1); TOTAL PROTEIN 7.2 GM/DL (6.4-8.2)
[2018-07-16] MEDS ORDERED: ISOVUE-370 76% 100ML VIAL (Q9967) As Ordered ONE (22:52)
--- NOTE | 2018-07-16 23:51 | REPVR ---
EXAM: CT Abdomen and Pelvis With Contrast EXAM DATE/TIME: 07/16/2018 11:06 PM CLINICAL HISTORY: 48 years old, female; Pain; Abdominal pain; Generalized; Additional info: Abd pain TECHNIQUE: Imaging protocol: Axial computed tomography images of the abdomen and pelvis with intravenous contrast. Coronal and sagittal reformatted images were created and reviewed. Radiation optimization: All CT scans at this facility use at least one of these dose optimization techniques: automated exposure control; mA and/or kV adjustment per patient size (includes targeted exams where dose is matched to clinical indication); or iterative reconstruction. Contrast material: ISOVUE 370 Contrast volume: 100 ml Contrast route: IV COMPARISON: CT ABD/PEL W/IV ORAL CONTRAS 02/02/2018 12:36 PM FINDINGS: Lower thorax: Centrilobular emphysematous lung disease. [place] in the right lower lobe. Atelectasis in the right lower lobe. ABDOMEN: Liver: Cyst in the left hepatic lobe measuring 4.4 cm in diameter. Other smaller hypodense lesions in the liver. There is focal hypodensity in the left hepatic lobe adjacent to the fissure for the ligamentum teres. Consistent with focal fatty infiltration versus transient hepatic attenuation difference and no followup is necessary. Gallbladder and bile ducts: Normal. No calcified stones. No ductal dilation. Pancreas: Normal. No ductal dilation. Spleen: Normal. No splenomegaly. Adrenals: Right adrenal gland is unremarkable. Nodule in the left adrenal gland measuring 2.2 cm in diameter. Kidneys and ureters: Normal. No hydronephrosis. Stomach and bowel: Negative for colonic diverticulitis. No abnormal bowel dilatation. No abnormal bowel wall thickening. Appendix: Appendix is normal. PELVIS: Bladder: Unremarkable as visualized. Reproductive: IUD in the uterus. ABDOMEN and PELVIS: Intraperitoneal space: Normal. No free air. No significant fluid collection. Bones/joints: Mild degenerative spine. Mild degenerative changes of the hips. No acute fracture. Soft tissues: Unremarkable. Vasculature: Normal. No abdominal aortic aneurysm. Lymph nodes: Normal. No enlarged lymph nodes. IMPRESSION: No CT findings to suggest source of abdominal pain. Stable hypodense lesions in the liver. Stable left adrenal nodule. No follow up is necessary. Additional findings as described. COMMENT: Consistent with the [employer]'s Incidental Findings Committee Report (J [employer] Gege Radiol 2010): Unless the patient's specific circumstances suggest otherwise, any liver lesion 0.5 cm or less, any cystic kidney lesion less than 1.0 cm, and/or any adrenal lesion 1.0 cm or less not otherwise characterized in this report as possessing suspicious or indeterminate imaging features is/are highly likely to be benign and do not require follow-up imaging or biopsy. Electronically signed by: Bibiana Chaney On 07/16/2018 23:51:20 PM
[2018-07-17 00:52] VITALS: BP 125/81
== END 2018-07-17 00:50 | disposition home or self-care (01) ==
LOC: M ED 21:05
DX: R10.9 Unspecified abdominal pain (principal); R11.10 Vomiting, unspecified; E78.5 Hyperlipidemia, unspecified; F17.210 Nicotine dependence, cigarettes, uncomplicated; Z87.19 Personal history of other diseases of the digestive system
CPT/HCPCS: 36415; 74177; 80048; 80076; 83690; 85025; 96374; 96375; 99284; J1885; J2765; Q9967

== ENCOUNTER → 2018-07-20 | Outpatient (CLI) | payer OTHER ==
[~2018-07-20] MED LIST changes: +PROM1SUP2 PR
[2018-07-20 17:17] LABS: BASO % 0.3 % (0.0-1.0); HEMATOCRIT 41.1 % (36.0-47.0); HEMOGLOBIN 13.8 g/dl (12.0-15.5); LYMPH % 15.8 % (24.0-44.0); MEAN CORPUSCULAR HEMOGLOBIN 31.7 pg (27.0-33.0); MEAN CORPUSCULAR HGB CONC 33.6 g/dl (32.0-36.5); MEAN CORPUSCULAR VOLUME 94.5 fl (80.0-96.0); MONO # 0.7 10^3/uL (0.0-0.8); MONO % 5.9 % (0.0-5.0); NEUTROPHILS # 9.7 10^3/uL (1.8-7.7); NEUTROPHILS % 77.7 % (36.0-66.0); PLATELET COUNT, AUTOMATED 284 10^3/uL (150-450); RED BLOOD COUNT 4.35 10^6/uL (4.00-5.40); WHITE BLOOD COUNT 12.5 10^3/uL (4.0-10.0)
[2018-07-20 17:27] LABS: ALBUMIN 4.1 GM/DL (3.2-5.2); ALT/SGPT 24 U/L (12-78); AMYLASE 56 U/L (25-115); BILIRUBIN,TOTAL 0.5 MG/DL (0.2-1.0); BLOOD UREA NITROGEN 16 MG/DL (7-18); CALCIUM LEVEL 9.6 MG/DL (8.5-10.1); CARBON DIOXIDE LEVEL 27 MEQ/L (21-32); CHLORIDE LEVEL 106 MEQ/L (98-107); CHOLESTEROL LEVEL 157 MG/DL (<200); CHOLESTEROL RISK RATIO 2.706 (<5); CREATININE FOR GFR 0.99 MG/DL (0.55-1.30); GLOMERULAR FILTRATION RATE > 60.0 (>58); GLUCOSE, FASTING 96 MG/DL (70-100); HDL CHOLESTEROL 58 MG/DL (>40); LDL CHOLESTEROL 89 MG/DL (<100); NON-HDL-C 99 MG/DL; POTASSIUM SERUM 4.9 MEQ/L (3.5-5.1); SODIUM LEVEL 138 MEQ/L (136-145); TRIGLYCERIDES LEVEL 49 MG/DL (<150)
[2018-07-21 15:28] LABS: LIPASE 462 U/L (73-393)
== END ==
LOC: M WUC 12:41
PROVIDERS: ATTEND Physician Assistant
DX: R11.2 Nausea with vomiting, unspecified (principal)

== ENCOUNTER 2018-07-22 11:48 | Emergency (ER) | payer OTHER ==
[~2018-07-22] VITALS: Ht 172.7 cm; Wt 75.0 kg
[~2018-07-22 11:48] MED LIST changes: -PROM1SUP2 PR
[2018-07-22] MEDS ORDERED: PANTOPRAZOLE 40MG INJ (PROTONIX) (C9113) IV ONE (12:15)
[2018-07-22] MEDS ORDERED: NS 1,000 ML IV ONE (12:15)
[2018-07-22] MEDS ORDERED: PROMETHAZINE INJ 25 MG/ML VIAL (J2550) IV ONE (12:15)
[2018-07-22 12:36] LABS: BASO # 0.1 10^3/uL (0.0-0.2); BASO % 0.6 % (0.0-1.0); EOS % 0.1 % (0.0-3.0); HEMATOCRIT 41.4 % (36.0-47.0); HEMOGLOBIN 14.3 g/dl (12.0-15.5); LYMPH # 1.2 10^3/uL (1.5-4.5); LYMPH % 10.6 % (24.0-44.0); MEAN CORPUSCULAR HEMOGLOBIN 32.4 pg (27.0-33.0); MEAN CORPUSCULAR HGB CONC 34.5 g/dl (32.0-36.5); MEAN CORPUSCULAR VOLUME 93.7 fl (80.0-96.0); MONO # 0.7 10^3/uL (0.0-0.8); MONO % 6.1 % (0.0-5.0); NEUTROPHILS # 9.4 10^3/uL (1.8-7.7); NEUTROPHILS % 82.3 % (36.0-66.0); PLATELET COUNT, AUTOMATED 283 10^3/uL (150-450); RED BLOOD COUNT 4.42 10^6/uL (4.00-5.40); WHITE BLOOD COUNT 11.4 10^3/uL (4.0-10.0)
--- NOTE | 2018-07-22 12:55 | REP ---
Clinical: Epigastric and abdominal pain. Technique: Upright view of the chest with supine and upright views of the abdomen and pelvis. Findings: Frontal upright view of the chest demonstrates no acute cardiopulmonary process or free air below the diaphragm to suspect pneumoperitoneum. Supine and upright views of the abdomen and pelvis demonstrate nonspecific bowel gas pattern without obstruction or perforation. No organomegaly. Phleboliths noted in the pelvis. IUD appears to be in satisfactory position. Skeletal structures normal for age. Impression: Nonspecific bowel gas pattern. Electronically Signed by Jay Aguillon MD 07/22/2018 12:46 P
[2018-07-22 12:57] LABS: ALBUMIN 4.1 GM/DL (3.2-5.2); ALT/SGPT 24 U/L (12-78); BILIRUBIN,DIRECT < 0.1 MG/DL (0.0-0.2); BILIRUBIN,TOTAL 0.4 MG/DL (0.2-1.0); BLOOD UREA NITROGEN 13 MG/DL (7-18); CALCIUM LEVEL 9.7 MG/DL (8.5-10.1); CARBON DIOXIDE LEVEL 21 MEQ/L (21-32); CHLORIDE LEVEL 109 MEQ/L (98-107); CREATININE FOR GFR 1.17 MG/DL (0.55-1.30); GLOMERULAR FILTRATION RATE 52.8 (>58); GLUCOSE, FASTING 118 MG/DL (70-100); LIPASE 373 U/L (73-393); POTASSIUM SERUM 4.6 MEQ/L (3.5-5.1); SODIUM LEVEL 140 MEQ/L (136-145); TOTAL PROTEIN 7.1 GM/DL (6.4-8.2)
[2018-07-22] MEDS ORDERED: LORazepam 2 MG/ML VIAL (J2060) IV STA (13:27)
[2018-07-22] MEDS ORDERED: METOCLOPRAMIDE INJ 10MG/2ML VIAL (J2765) IV ONE (13:30)
[2018-07-22] MEDS ORDERED: PROM1SUP2 PR (15:19)
[2018-07-22 15:31] VITALS: BP 152/88
== END 2018-07-22 15:40 | disposition home or self-care (01) ==
LOC: M ED 11:48
DX: R11.2 Nausea with vomiting, unspecified (principal); Z87.19 Personal history of other diseases of the digestive system; F17.200 Nicotine dependence, unspecified, uncomplicated; Z79.899 Other long term (current) drug therapy
CPT/HCPCS: 36415; 74021; 80048; 80076; 81001; 83690; 85025; 96361; 96374; 96375; 99284; C9113; J2060; J2765

== ENCOUNTER → 2018-07-24 | Outpatient (REF) | payer OTHER ==
[~2018-07-24] MED LIST changes: +PROM1SUP2 PR
== END ==
LOC: M SFHCSACK 14:15
PROVIDERS: ATTEND Physician Assistant
DX: J02.9 Acute pharyngitis, unspecified (principal)

== ENCOUNTER 2018-07-30 12:36 | Emergency (ER) | payer OTHER ==
[~2018-07-30] VITALS: Ht 172.7 cm; Wt 73.2 kg
[2018-07-30] MEDS ORDERED: ONDANSETRON 4MG/2ML VIAL (J2405) IV ONE (13:00)
[2018-07-30] MEDS ORDERED: NS 1,000 ML IV ONE ×2 (13:00→14:15)
[2018-07-30 13:25] LABS: BASO # 0.1 10^3/uL (0.0-0.2); BASO % 0.4 % (0.0-1.0); EOS % 0.1 % (0.0-3.0); HEMATOCRIT 40.7 % (36.0-47.0); HEMOGLOBIN 14.3 g/dl (12.0-15.5); LYMPH # 1.7 10^3/uL (1.5-4.5); LYMPH % 9.9 % (24.0-44.0); MEAN CORPUSCULAR HEMOGLOBIN 31.8 pg (27.0-33.0); MEAN CORPUSCULAR HGB CONC 35.1 g/dl (32.0-36.5); MEAN CORPUSCULAR VOLUME 90.6 fl (80.0-96.0); MONO # 1.2 10^3/uL (0.0-0.8); NEUTROPHILS # 14.5 10^3/uL (1.8-7.7); NEUTROPHILS % 82.3 % (36.0-66.0); PLATELET COUNT, AUTOMATED 289 10^3/uL (150-450); RED BLOOD COUNT 4.49 10^6/uL (4.00-5.40); WHITE BLOOD COUNT 17.6 10^3/uL (4.0-10.0)
[2018-07-30 13:56] LABS: ALBUMIN 4.2 GM/DL (3.2-5.2); BILIRUBIN,DIRECT 0.2 MG/DL (0.0-0.2); BILIRUBIN,TOTAL 0.5 MG/DL (0.2-1.0); CALCIUM LEVEL 9.9 MG/DL (8.5-10.1); CREATININE FOR GFR 1.21 MG/DL (0.55-1.30); GLOMERULAR FILTRATION RATE 50.8 (>58); POTASSIUM SERUM 4.3 MEQ/L (3.5-5.1)
[2018-07-30] MEDS ORDERED: PROMETHAZINE INJ 25 MG/ML VIAL (J2550) IV ONE (15:00)
[2018-07-30] MEDS: GASTROGRAFIN SOLUTION 30ML PO SCH ×2 (15:15→15:45)
[2018-07-30] MEDS ORDERED: ISOVUE-370 76% 100ML VIAL (Q9967) As Ordered ONE (15:54)
[2018-07-30] MEDS ORDERED: FLEET ENEMA PR ONE (16:45)
[2018-07-30] MEDS ORDERED: MAGNESIUM CITRATE 300 ML BTL PO ONE (16:45)
[2018-07-30] MEDS ORDERED: LACT10SO29 PO (17:35)
[2018-07-30] MEDS ORDERED: ONDA4TAB6 PO (17:37)
[2018-07-30 17:51] VITALS: BP 144/99
--- NOTE | 2018-07-31 09:33 | REP ---
Abdomen series: Four views. History: Abdomen pain. Findings: Upright chest radiograph is compared with the prior study from July 22, 2018. The lungs are hyperinflated but remain clear. There is no evidence of infiltrate or free. Diaphragmatic air. Heart is not enlarged. Supine and erect views of the abdomen demonstrate an IUD centrally located in the pelvis. The bowel gas pattern is normal with moderate ascending and descending colonic stool. There is a calcification projected over the central portion of the left kidney. This may be a intrarenal nephrolith. This is 4 mm in diameter. Psoas margins are symmetric. There are phleboliths in the pelvis. Impression: Hyperinflation of the lungs. IUD is centrally located in the pelvis. Intrarenal calculus suspected left kidney. Findings unchanged from July 22, 2018. Electronically Signed by Daniel Shirley MD 07/30/2018 02:16 P
--- NOTE | 2018-07-31 10:27 | REP ---
CT ABDOMEN AND PELVIS WITH IV BUT WITHOUT ORAL CONTRAST: HISTORY: Abdomen pain. Elevated lactic acid. Obstipation. Evaluate for small bowel obstruction. Comparison CT study July 16, 2018. CT CONTRAST DOSE: 100 mL of intravenous Isovue 370 is administered. FINDINGS: Preliminary digital wharf laborer radiograph is unremarkable. An IUD is seen centrally located in the pelvis. There is plate-like atelectasis and a small bullous in the right lower lobe of the lung. Lung bases are otherwise clear. No pleural or pericardial effusion is seen. There is a cyst in the left lobe of the liver, which measures 5.2 cm in greatest dimension unchanged from prior study. No focal liver mass lesion is appreciated. The spleen is unremarkable. There is a left adrenal nodule measuring 1.9 cm in diameter. This is unchanged from July 16, 2018 study. It is also unchanged from a comparison CT study of the chest from March 23, 2016. This is consistent with a benign adrenal adenoma. No abnormality is noted in the gallbladder. The pancreas is morphologically intact. There is a 5 mm calculus in the collecting system of the left kidney at its lower pole. No hydronephrosis is seen. The kidneys are otherwise morphologically intact. No retroperitoneal mass or adenopathy is seen. Pelvic CT images demonstrate that the uterus is somewhat retroverted. IUD is seen within it. Urinary bladder is unremarkable. No ovarian abnormality is appreciated. Cecum and ileocecal valve region of the pelvis and a normal appendix is seen just above the urinary bladder. Small and large bowel loops are normal in caliber. There is a moderate amount of stool content throughout the colon but no evidence of obstruction or dilation. No abdominal wall defect is seen. There are mild degenerative changes at the lower lumbar spine. IMPRESSION: There is a stable 5.2 cm cyst in the left lobe of the liver. Stable 2 cm left adrenal adenoma. Intrarenal calculus lower pole left kidney 5 mm in diameter. IUD in place in a somewhat retroverted uterus. No evidence of bowel obstruction. Moderate stool throughout the colon. Normal appendix. Electronically Signed by Daniel Shirley MD 07/31/2018 10:30 A
== END 2018-07-30 17:53 | disposition home or self-care (01) ==
LOC: M ED 12:36
DX: K59.00 Constipation, unspecified (principal); F41.9 Anxiety disorder, unspecified; F33.9 Major depressive disorder, recurrent, unspecified; F17.200 Nicotine dependence, unspecified, uncomplicated; Z79.899 Other long term (current) drug therapy
CPT/HCPCS: 74021; 74177; 80048; 80076; 83605; 83690; 85025; 96374; 96375; 99284; J2405; Q9963; Q9967

== ENCOUNTER → 2019-02-02 | Outpatient (REF) | payer OTHER ==
[~2019-02-02] MED LIST changes: +LACT10SO29 PO; +ONDA4TAB6 PO
[2019-02-02 18:45] LABS: ALBUMIN 4.1 GM/DL (3.2-5.2); BILIRUBIN,TOTAL 0.4 MG/DL (0.2-1.0); CALCIUM LEVEL 9.7 MG/DL (8.5-10.1); CHOLESTEROL RISK RATIO 2.641 (<5); CREATININE FOR GFR 1.09 MG/DL (0.55-1.30); FREE T4 0.88 NG/DL (0.76-1.46); GLOMERULAR FILTRATION RATE 57.3 (>58); POTASSIUM SERUM 4.9 MEQ/L (3.5-5.1); THYROID STIMULATING HORMONE 1.48 uIU/ML (0.358-3.740); TOTAL 25(OH) VITAMIN D 51.5 NG/ML (30.0-100.0); TOTAL PROTEIN 7.1 GM/DL (6.4-8.2)
[2019-02-02 18:49] LABS: BASO # 0.1 10^3/uL (0.0-0.2); BASO % 0.6 % (0.0-1.0); EOS # 0.1 10^3/uL (0.0-0.5); HEMATOCRIT 43.2 % (36.0-47.0); HEMOGLOBIN 14.4 g/dl (12.0-15.5); LYMPH # 3.1 10^3/uL (1.5-5.0); LYMPH % 25.1 % (24.0-44.0); MEAN CORPUSCULAR HEMOGLOBIN 32.3 pg (27.0-33.0); MEAN CORPUSCULAR HGB CONC 33.3 g/dl (32.0-36.5); MEAN CORPUSCULAR VOLUME 96.9 fl (80.0-96.0); MONO % 7.8 % (0.0-5.0); NEUTROPHILS # 8.1 10^3/uL (1.5-8.5); NEUTROPHILS % 65.3 % (36.0-66.0); PLATELET COUNT, AUTOMATED 264 10^3/uL (150-450); RED BLOOD COUNT 4.46 10^6/uL (4.00-5.40); WHITE BLOOD COUNT 12.3 10^3/uL (4.0-10.0)
== END ==
LOC: M SFHCSACK 10:32
PROVIDERS: ATTEND Physician Assistant
DX: K86.1 Other chronic pancreatitis (principal); K21.9 Gastro-esophageal reflux disease without esophagitis; E78.2 Mixed hyperlipidemia; Z13.29 Encounter for screening for other suspected endocrine disorder; E55.9 Vitamin D deficiency, unspecified

== ENCOUNTER → 2019-03-26 | Outpatient (CLI) | payer OTHER ==
[~2019-03-26] MED LIST changes: +ONDA4TAB5 PO; -SIMV20TA2 PO; +SIMV20TA22 PO; +SIMV40TA20 PO; +VITA500045 PO
[2019-03-26 12:42] LABS: BASO % 0.1 % (0.0-1.0); HEMATOCRIT 44.9 % (36.0-47.0); HEMOGLOBIN 14.7 g/dl (12.0-15.5); LYMPH # 0.8 10^3/uL (1.5-5.0); LYMPH % 4.4 % (24.0-44.0); MEAN CORPUSCULAR HEMOGLOBIN 31.9 pg (27.0-33.0); MEAN CORPUSCULAR HGB CONC 32.7 g/dl (32.0-36.5); MEAN CORPUSCULAR VOLUME 97.4 fl (80.0-96.0); MONO # 0.9 10^3/uL (0.0-0.8); MONO % 4.9 % (0.0-5.0); NEUTROPHILS # 16.3 10^3/uL (1.5-8.5); PLATELET COUNT, AUTOMATED 313 10^3/uL (150-450); RED BLOOD COUNT 4.61 10^6/uL (4.00-5.40); WHITE BLOOD COUNT 18.1 10^3/uL (4.0-10.0)
[2019-03-26 12:46] LABS: ALBUMIN 4.7 GM/DL (3.2-5.2); BILIRUBIN,TOTAL 0.6 MG/DL (0.2-1.0); CALCIUM LEVEL 10.9 MG/DL (8.5-10.1); CREATININE FOR GFR 1.99 MG/DL (0.55-1.30); GLOMERULAR FILTRATION RATE 28.6 (>58); POTASSIUM SERUM 4.4 MEQ/L (3.5-5.1); TOTAL PROTEIN 8.4 GM/DL (6.4-8.2)
== END ==
LOC: M WUC 08:42
PROVIDERS: ATTEND Physician Assistant
DX: R10.9 Unspecified abdominal pain (principal)

== ENCOUNTER 2019-03-27 09:03 | Inpatient (IN) | payer OTHER ==
[~2019-03-27] VITALS: Ht 172.7 cm; Wt 77.9 kg
[~2019-03-27 09:03] MED LIST changes: -ONDA4TAB5 PO; -SIMV40TA20 PO; -VITA500045 PO
[2019-03-27] MEDS ORDERED: SIMV40TA20 PO (09:09)
[2019-03-27] MEDS ORDERED: VITA500045 PO (09:09)
[2019-03-27] MEDS ORDERED: NS 1,000 ML IV ONE ×2 (09:30→10:30)
[2019-03-27 09:57] LABS: BASO # 0.1 10^3/uL (0.0-0.2); BASO % 0.2 % (0.0-1.0); HEMOGLOBIN 15.9 g/dl (12.0-15.5); LYMPH # 1.9 10^3/uL (1.5-5.0); LYMPH % 7.5 % (24.0-44.0); MEAN CORPUSCULAR HGB CONC 33.1 g/dl (32.0-36.5); MEAN CORPUSCULAR VOLUME 96.6 fl (80.0-96.0); MONO % 9.4 % (0.0-5.0); NEUTROPHILS # 20.8 10^3/uL (1.5-8.5); NEUTROPHILS % 82.4 % (36.0-66.0); PLATELET COUNT, AUTOMATED 342 10^3/uL (150-450); RED BLOOD COUNT 4.97 10^6/uL (4.00-5.40); WHITE BLOOD COUNT 25.3 10^3/uL (4.0-10.0)
[2019-03-27] MEDS ORDERED: cefTRIAXone SOD 1 GM in D5W MINI-BAG PLUS 50 ML IV ONE (10:30)
[2019-03-27 10:34] LABS: MONO # 2.4 10^3/uL (0.0-0.8)
[2019-03-27] MEDS ORDERED: ONDANSETRON 4MG/2ML VIAL (J2405) IV ONE (11:00)
--- NOTE | 2019-03-27 11:13 | REP ---
RENAL ULTRASOUND: Real-time sonographic evaluation of the kidneys performed. The kidneys are normal in size and echotexture, right kidney measuring 9.8 x 4.3 x 4.4 cm and left kidney 10.6 x 5.6 x 5.6 cm. There is no hydronephrosis on the right. There is mild hydronephrosis on the left. No definite renal calculi are seen bilaterally. The urinary bladder is empty. IMPRESSION: Mild left hydronephrosis. No renal stone is visualized sonographically. Electronically Signed by Everett Whelan MD 03/28/2019 10:38 A
[2019-03-27] MEDS ORDERED: KETOROLAC 30 MG/ML VIAL (J1885) IV ONE (11:30)
[2019-03-27] MEDS ORDERED: MORPHINE 2 MG/ML 1ML VIAL (J2270) IV ONE (11:45)
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
[2019-03-27] MEDS ORDERED: ONDA4TAB5 PO (12:09)
[2019-03-27] MEDS: NS 1,000 ML IV SCH ×2 (13:57→20:37)
[2019-03-27] MEDS: HEPARIN SOD (PORCINE) 5000 UNITS/ML VIAL SC SCH ×2 (14:00→21:00)
[2019-03-27 14:45] LABS: CALCIUM LEVEL 8.9 MG/DL (8.5-10.1); CREATININE FOR GFR 2.08 MG/DL (0.55-1.30); GLOMERULAR FILTRATION RATE 27.2 (>58)
--- NOTE | 2019-03-27 18:35 | ECGEPIP ---
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
[2019-03-27 20:00] VITALS: BP 136/83
[2019-03-27] MEDS: ONDANSETRON 4MG/2ML VIAL (J2405) IV PRN (20:37)
[2019-03-28] VITALS (8 sets, daily range): BP systolic 118–161; BP diastolic 62–88
[2019-03-28] MEDS: ACETAMINOPHEN TAB 650MG DOSE (2X325MG) PO PRN ×2 (00:03→11:26)
[2019-03-28] MEDS: NS 1,000 ML IV SCH ×3 (03:45→21:44)
[2019-03-28] MEDS: ONDANSETRON 4MG/2ML VIAL (J2405) IV PRN ×3 (04:06→22:56)
[2019-03-28] MEDS: HEPARIN SOD (PORCINE) 5000 UNITS/ML VIAL SC SCH ×3 (05:20→21:44)
[2019-03-28 05:48] LABS: BASO # 0.1 10^3/uL (0.0-0.2); BASO % 0.3 % (0.0-1.0); HEMATOCRIT 34.7 % (36.0-47.0); LYMPH % 9.9 % (24.0-44.0); MEAN CORPUSCULAR HEMOGLOBIN 32.5 pg (27.0-33.0); MEAN CORPUSCULAR HGB CONC 34.3 g/dl (32.0-36.5); MEAN CORPUSCULAR VOLUME 94.8 fl (80.0-96.0); MONO % 10.6 % (0.0-5.0); NEUTROPHILS # 15.6 10^3/uL (1.5-8.5); NEUTROPHILS % 78.7 % (36.0-66.0); RED BLOOD COUNT 3.66 10^6/uL (4.00-5.40); WHITE BLOOD COUNT 19.8 10^3/uL (4.0-10.0)
[2019-03-28 05:50] LABS: HEMOGLOBIN 11.9 g/dl (12.0-15.5); MONO # 2.1 10^3/uL (0.0-0.8); PLATELET COUNT, AUTOMATED 215 10^3/uL (150-450)
[2019-03-28] MEDS ORDERED: METOCLOPRAMIDE INJ 10MG/2ML VIAL (J2765) IV ONE (06:00)
[2019-03-28 06:12] LABS: CALCIUM LEVEL 8.8 MG/DL (8.5-10.1); CREATININE FOR GFR 1.85 MG/DL (0.55-1.30); GLOMERULAR FILTRATION RATE 31.1 (>58); POTASSIUM SERUM 4.2 MEQ/L (3.5-5.1)
[2019-03-28] MEDS: MIRALAX *UNIT DOSE* 17GM PACKET PO SCH (13:01)
[2019-03-28] MEDS: DOCUSATE SODIUM 100 MG CAP PO SCH ×2 (13:01→21:42)
[2019-03-28] MEDS: PROCHLORPERAZINE 5 MG TAB (S0183) PO PRN ×2 (13:12→17:13)
--- NOTE | 2019-03-28 15:02 | IPNPDOC ---
Text Note Date of Service The patient was seen on 03/28/19. NOTE SUBJECTIVE: Patient was seen at bedside today. She states that she did not sleep well last night due to hourly dry heaving. She states that she was able to sleep for approximately 2.5 hours following administration of ondansetron. Patient reports that her abdominal pain is now intermittent: 3/10 at baseline and 8.5/10 while dry heaving. She denies pain on urination. She states that she has not been producing much urine, but has had increased urinary frequency. Patient has no additional complaints at this time. OBJECTIVE: VITAL SIGNS: Please see below. GENERAL: Patient appears stated age, tired, and in mild distress. HEENT: Normocephalic/atraumatic. Mucus membranes moist and pink. HEART: Regular rate and rhythm. No murmurs, rubs, or gallops. LUNGS: Clear to auscultation bilaterally. No wheezes, rhonchi, or rales. ABDOMEN: No rashes, bumps, or bruises. Bowel sounds present in all four quadrants. Abdomen nontender in all 4 quadrants. Nadeem sign positive on the l eft. Negative for both Whelan Wilks and [place] signs. EXTREMITIES: No edema present. PSYCH: Patient is pleasant and cooperative. She answers questions appropriately. ASSESSMENT: Patient is a 48 year old female with a past medical history of pancreatitis who was admitted for evaluation and treatment of pyelonephritis. PLAN: 1. Pyelonephritis - IV ceftriaxone - IV fluids - Nausea control with intravenous ondansetron and prochlorperazine - Pain control with acetaminophen - Continue to monitor for improvement 2. Hyperlipidemia - Continue simvastatin therapy 4. Chronic pancreatitis - Maintain adequate hydration by intravenous fluids 5. DVT prophylaxis: subcutaneous heparin Disposition: Continuing IV antibiotics overnight and reassess tomorrow. VS,Fishbone, I+O VS, Fishbone, I+O Laboratory Tests 03/27/19 14:09 03/28/19 05:23 Vital Signs Date Time Temp Pulse Resp B/P (MAP) Pulse Ox O2 Delivery O2 Flow Rate FiO2 03/28/19 09:30 98.6 86 19 135/67 (89) 98 Room Air I&O- Last 24 Hours up to 6 AM 03/28/19 06:00 Intake Total 2000 ml Output Total 200 ml Balance 1800 ml GME ATTESTATION GME ATTESTATION My faculty preceptor for this patient encounter was physically present during the encounter and was fully available. All aspects of the patient interview, examination, medical decision making process, and medical care plan development were reviewed and approved by the faculty preceptor. The faculty preceptor is aware and concurs with the plan as stated in the body of this note and will attest to such by his/her cosignature. LONDON LEÓN S-III Mar 28, 2019 11:30
[2019-03-28] MEDS ORDERED: PROMETHAZINE INJ 25 MG/ML VIAL (J2550) IV ONE (21:15)
[2019-03-28] MEDS ORDERED: traMADol 50 MG TAB PO ONE (21:15)
--- NOTE | 2019-03-28 21:29 | ECGEPIP ---
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
[2019-03-28] MEDS: CEFDINIR 300 MG CAP (OMNICEF) PO SCH (21:42)
[2019-03-28] MEDS: SIMVASTATIN 40 MG TAB PO SCH (21:43)
[2019-03-28 23:08] LABS: C REACTIVE PROTEIN QUANTITATIV 1.42 MG/DL (0.00-0.30)
[2019-03-28 23:11] LABS: ERYTHROCYTE SEDIMENTATION RATE 28 mm/hr (0-20)
[2019-03-29] MEDS: PROCHLORPERAZINE 5 MG TAB (S0183) PO PRN ×3 (01:31→15:40)
[2019-03-29 05:04] VITALS: BP 146/82
[2019-03-29] MEDS: HEPARIN SOD (PORCINE) 5000 UNITS/ML VIAL SC SCH ×3 (05:38→21:32)
[2019-03-29] MEDS: NS 1,000 ML IV SCH ×3 (05:38→21:23)
[2019-03-29 06:24] LABS: BASO % 0.3 % (0.0-1.0); HEMATOCRIT 31.3 % (36.0-47.0); HEMOGLOBIN 10.9 g/dl (12.0-15.5); LYMPH # 1.8 10^3/uL (1.5-5.0); LYMPH % 12.7 % (24.0-44.0); MEAN CORPUSCULAR HEMOGLOBIN 32.6 pg (27.0-33.0); MEAN CORPUSCULAR HGB CONC 34.8 g/dl (32.0-36.5); MEAN CORPUSCULAR VOLUME 93.7 fl (80.0-96.0); MONO # 1.6 10^3/uL (0.0-0.8); MONO % 11.3 % (0.0-5.0); NEUTROPHILS # 10.7 10^3/uL (1.5-8.5); NEUTROPHILS % 75.3 % (36.0-66.0); PLATELET COUNT, AUTOMATED 177 10^3/uL (150-450); RED BLOOD COUNT 3.34 10^6/uL (4.00-5.40); WHITE BLOOD COUNT 14.2 10^3/uL (4.0-10.0)
[2019-03-29 06:50] LABS: CALCIUM LEVEL 8.8 MG/DL (8.5-10.1); CREATININE FOR GFR 1.52 MG/DL (0.55-1.30); POTASSIUM SERUM 3.5 MEQ/L (3.5-5.1)
--- NOTE | 2019-03-29 07:18 | IPNPDOC ---
Text Note Date of Service The patient was seen on 03/29/19. NOTE SUBJECTIVE: Patient was seen at bedside today. She continues to have dry heaves, though she states that all of the nausea medications are working better now. Her abdominal pain continues to be intermittent in nature. She continues to have frequency, but feels like she is not producing a lot of urine still. Denies dysuria. She denies chest pain, shortness of breath, difficulty breathing, palpitations, or bilateral lower externally selling OBJECTIVE: VITAL SIGNS: Please see below. GENERAL: Lying in bed, appears older than stated age, tired, and in no acute distress HEENT: Normocephalic/atraumatic. Mucus membranes moist and pink. No scleral icterus NECK: Supple, no masses no JVD HEART: Regular rate and rhythm. No murmurs, rubs, or gallops. LUNGS: Clear to auscultation bilaterally. No wheezes, rhonchi, or rales. ABDOMEN: No rashes, bumps, or bruises. Bowel sounds present in all four quadrants. Tender to palpation in left lower quadrant along the inguinal ligamen t. Negative Rovsing, no guarding or rebound. BACK: CVA tenderness on the left EXTREMITIES: No clubbing, cyanosis, or edema PSYCH: Patient is pleasant and cooperative. She answers questions appropriately. ASSESSMENT: Patient is a 48 year old female with a past medical history of pancreatitis who was admitted for evaluation and treatment of pyelonephritis. Hospital day #3, antibiotics day #3. PLAN: 1. Left-sided flank pain. May be secondary to Pyelonephritis, however I think differential should be expanded to nephrolithiasis, ureteral stone, bladder stone, or LISW/abdominal causes - Day #3 of antibiotics, ceftriaxone and switched his oral Ceftin ear - c/w IV fluids - Nausea control with intravenous ondansetron and prochlorperazine - Pain control with acetaminophen - CT Ab/P 2. Hyperlipidemia - Continue simvastatin therapy 4. Chronic pancreatitis - Maintain adequate hydration by intravenous fluids 5. DVT prophylaxis: subcutaneous heparin Disposition: Continuing pending clinical improvement. VS,Fishbone, I+O VS, Fishbone, I+O Laboratory Tests 03/29/19 06:09 Vital Signs Date Time Temp Pulse Resp B/P (MAP) Pulse Ox O2 Delivery O2 Flow Rate FiO2 12/12/19 05:04 98.2 74 17 146/82 (332) 92 Room Air I&O- Last 24 Hours up to 6 AM 03/29/19 06:00 Intake Total 2280 ml Output Total 50 ml Balance 2230 ml GME ATTESTATION GME ATTESTATION My faculty preceptor for this patient encounter was physically present during the encounter and was fully available. All aspects of the patient interview, examination, medical decision making process, and medical care plan development were reviewed and approved by the faculty preceptor. The faculty preceptor is aware and concurs with the plan as stated in the body of this note and will attest to such by his/her cosignature. ROSS SIMS D.O. Mar 29, 2019 07:18 MONSE MERRITT MD Mar 31, 2019 11:51
[2019-03-29] MEDS ORDERED: ISOVUE-370 76% 100ML VIAL (Q9967) As Ordered ONE (08:50)
[2019-03-29] MEDS ORDERED: GABAPENTIN 300 MG CAP PO SCH (09:00)
[2019-03-29] MEDS: MIRALAX *UNIT DOSE* 17GM PACKET PO SCH (09:00)
[2019-03-29] MEDS ORDERED: GABAPENTIN 400 MG CAP PO SCH (09:00)
[2019-03-29] MEDS: ONDANSETRON 4MG/2ML VIAL (J2405) IV PRN (09:42)
[2019-03-29] MEDS: ACETAMINOPHEN TAB 650MG DOSE (2X325MG) PO PRN ×2 (09:44→20:15)
[2019-03-29] MEDS: CEFDINIR 300 MG CAP (OMNICEF) PO SCH ×2 (09:44→20:15)
[2019-03-29] MEDS: DOCUSATE SODIUM 100 MG CAP PO SCH ×2 (09:45→20:16)
[2019-03-29 09:52] LABS: HEMOGLOBIN A1c 4.9 %
--- NOTE | 2019-03-29 12:09 | REP ---
CT ABDOMEN AND PELVIS WITHOUT AND WITH IV CONTRAST: CT urogram. HISTORY: Question nephrolithiasis. Left lower quadrant pain. Comparison CT study July 30, 2018. CT CONTRAST DOSE: 100 mL of intravenous Isovue [address] FINDINGS: Preliminary digital manager valuation radiograph demonstrates an unremarkable bowel gas pattern. There is mild linear fibrosis in the right lower lobe . A small air cyst is seen in the right lower lobe measuring 3.1 cm. These findings are unchanged. There is new plate-like atelectasis in the left lower lobe. There is a cyst in the left lobe of the liver again seen measuring 4.1 cm in greatest diameter. This is unchanged. There are two other subcentimeter hepatic cysts in the right lobe which are also felt to be unchanged. Spleen is unremarkable. There is a 2.1 cm low-density left adrenal nodule which is unchanged and felt to be consistent with adrenal adenoma. Mean Hounsfield unit density is 0 HU. This is unchanged from the March 23, 2016 prior study. Right adrenal is normal. There is moderate new hydronephrosis affecting the left kidney. The left kidney is enlarged and there is perinephric stranding. There is delayed contrast enhancement in the left kidney indicating obstructive uropathy. There is a distal ureteral calculus at the ureterovesical junction on the left side at the bladder base. This calculus measures 6 mm in greatest diameter. No bladder calculus is seen. No intrarenal calculus is observed on either side. The right kidney does not show hydronephrosis. No retroperitoneal mass or adenopathy is seen. Delayed scan images demonstrate asymmetric nephrogram and hydronephrosis. The right ureter is unremarkable. No bladder mass lesion is seen. Normal appendix is observed in the right lower quadrant. Small and large intestinal bowel loops are unremarkable. IMPRESSION: Moderate left-sided hydronephrosis and hydroureter with obstructive uropathy due to a 6 mm distal ureteral calculus in the left ureterovesical junction. Previously, this calculus was in the intrarenal collecting system. Electronically Signed by Daniel Shirley MD 03/29/2019 01:09 P
[2019-03-29 15:35] VITALS: BP 158/96
[2019-03-29] MEDS: MORPHINE 2 MG/ML 1ML VIAL (J2270) IV PRN (20:02)
[2019-03-29 20:05] VITALS: BP 139/95
[2019-03-29] MEDS: TAMSULOSIN 0.4 MG CAP PO SCH (20:16)
[2019-03-29] MEDS: SIMVASTATIN 40 MG TAB PO SCH (20:16)
[2019-03-29] MEDS ORDERED: CEFTRIAXONE SOD IV ONE (20:30)
[2019-03-29] MEDS ORDERED: FLUID PLACE HOLDER IV ONE (20:30)
--- NOTE | 2019-03-29 21:06 | CR.PDOC ---
General Date of Consultation: Mar 29, 2019 Referring Provider: ROSS SIMS D.O. Primary Care Physician: Steffi Corona PA-C ER Consultation REASON FOR CONSULTATION/CHIEF COMPLAINT: Distal left ureteral calculus with hydronephrosis. HISTORY OF PRESENT ILLNESS: This is a pleasant 78-year-old white female who began having problems with discomfort 3 days ago. She presented to the urgent care center and discharged home. As her condition worsened. She presented to the emergency room the following day and was subsequently admitted. Discomfort has continued and a CT scan was obtained which shows that she has a 6 mm distal left ureteral calculus with hydronephrosis. A urology consult was therefore called. ALLERGIES: Please see below. HOME MEDICATIONS: Please see below. PAST MEDICAL HISTORY: 1. Chronic Pancreatitis. 2. HLD HLD. 3. Anxiety/depression. 4. Pericarditis. 5. Reactive airway disease/seasonal allergies. PAST SURGICAL HISTORY: 1. None FAMILY HISTORY: Father: History of calculi Siblings: Brother has history of scarlet Hereditary Diseases: None SOCIAL HISTORY: Marital status and/or living arrangements: Employment: [employer] Illicit drug use: None IV drug use: None Other relevant social factors: None REVIEW OF SYSTEMS: CONSTITUTIONAL: Within normal limits HEENT: No abnormalities or complaints CARDIOVASCULAR: Within normal limits RESPIRATORY: Good GENITOURINARY: No prior history of calculi MUSCULOSKELETAL: No musculoskeletal defects GASTROINTESTINAL: Chronic pancreatitis SKIN: Normal NEUROLOGICAL: Normal PSYCHIATRIC: Depression ENDOCRINE: No abnormalities HEMATOLOGIC/LYMPHATIC: No abnormalities ALLERGIC/IMMUNOLOGIC: None PHYSICAL EXAMINATION: VITAL SIGNS: Please see below. GENERAL APPEARANCE: Good hygiene HEENT: Pupils are equal and reactive to light, sclerae white. EOMs intact. Neck is supple without adenopathy. Trachea is midline. There is no jugular venous distention RESPIRATORY: Breath sounds are bilaterally present, equal and clear. CARDIOVASCULAR: Cardiac rhythm is regular. ABDOMEN: Flat, soft with some tenderness on the left side. No masses or organomegaly. EXTREMITIES: Good range of motion NEUROLOGICAL: Intact. PSYCHIATRIC: Alert and oriented 3. LABORATORY DATA: Please see below. ASSESSMENT/PLAN: 1. Obstructing distal left ureteral calculus. Patient will have a ureteroscopic laser lithotripsy tomorrow. Alternative treatments and possible complications were discussed and the patient expressed understanding and agrees to continue with the procedure plans. Vital Signs/I&O Vital Signs Date Time Temp Pulse Resp B/P (MAP) Pulse Ox O2 Delivery O2 Flow Rate FiO2 03/29/19 20:12 14 03/29/19 20:05 102.5 107 139/95 (110) 95 Room Air I&O- Last 24 Hours up to 6 AM 03/29/19 06:00 Intake Total 2280 ml Output Total 50 ml Balance 2230 ml Laboratory Data Labs 24H Laboratory Tests 2 03/29/19 06:09: Immature Granulocyte % (Auto) 0.4, Neutrophils (%) (Auto) 75.3H, Lymphocytes (%) (Auto) 12.7L, Monocytes (%) (Auto) 11.3H, Eosinophils (%) (Auto) 0.0, Basophils (%) (Auto) 0.3, Neutrophils # (Auto) 10.7H, Lymphocytes # (Auto) 1.8, Monocytes # (Auto) 1.6H, Eosinophils # (Auto) 0.0, Basophils # (Auto) 0.0, Nucleated Red Blood Cells % (auto) 0.0, Anion Gap 8, Glomerular Filtration Rate 39.0L, Calcium Level 8.8 03/29/19 08:36: Estimated Mean Plasma Glucose 94, Hemoglobin A1c 4.9 03/29/19 10:52: Lactic Acid Level 1.1 CBC/BMP Laboratory Tests 03/29/19 06:09 Microbiology Microbiology 03/27/19 Blood Culture - Preliminary, Resulted No Growth after 48 hours. All Specime... 03/27/19 Blood Culture - Preliminary, Resulted No Growth after 48 hours. All Specime... 03/27/19 Urine Culture - Final, Complete Allergies Coded Allergies: No Known Allergies (Unverified , 07/16/18) Home Medications Scheduled Ergocalciferol (Vitamin D2) (Vitamin D2) 50,000 Unit Capsule, 50,000 UNIT PO QWEEK, (Reported) MONDAYS Simvastatin (Simvastatin) 40 Mg Tablet, 40 MG PO QHS, (Reported) Scheduled PRN Ondansetron HCl (Ondansetron HCl) 4 Mg Tablet, 4 MG PO BID PRN for NAUSEA OR VOMITING, (Reported) MONSE MERRITT MD Mar 29, 2019 21:06
[2019-03-29] MEDS ORDERED: cefTRIAXone SOD 2 GM in D5W MINI-BAG PLUS 50 ML IV ONE (22:00)
[2019-03-30] MEDS: MORPHINE 2 MG/ML 1ML VIAL (J2270) IV PRN ×4 (00:07→22:18)
[2019-03-30] MEDS: ACETAMINOPHEN TAB 650MG DOSE (2X325MG) PO PRN (01:50)
[2019-03-30] MEDS: ONDANSETRON 4MG/2ML VIAL (J2405) IV PRN ×2 (03:37→09:47)
[2019-03-30 05:02] VITALS: BP 138/76
[2019-03-30] MEDS: HEPARIN SOD (PORCINE) 5000 UNITS/ML VIAL SC SCH ×3 (05:45→21:00)
[2019-03-30] MEDS ORDERED: ceFAZolin SOD 2 GM in IV 1 EA IV ONE (06:00)
[2019-03-30 06:25] LABS: BASO % 0.2 % (0.0-1.0); HEMATOCRIT 33.3 % (36.0-47.0); HEMOGLOBIN 11.7 g/dl (12.0-15.5); LYMPH # 0.9 10^3/uL (1.5-5.0); LYMPH % 3.8 % (24.0-44.0); MEAN CORPUSCULAR HEMOGLOBIN 32.3 pg (27.0-33.0); MEAN CORPUSCULAR HGB CONC 35.1 g/dl (32.0-36.5); MONO % 13.9 % (0.0-5.0); NEUTROPHILS # 19.1 10^3/uL (1.5-8.5); NEUTROPHILS % 81.6 % (36.0-66.0); PLATELET COUNT, AUTOMATED 176 10^3/uL (150-450); RED BLOOD COUNT 3.62 10^6/uL (4.00-5.40); WHITE BLOOD COUNT 23.4 10^3/uL (4.0-10.0)
[2019-03-30 06:34] LABS: MONO # 3.3 10^3/uL (0.0-0.8)
[2019-03-30 06:41] LABS: CALCIUM LEVEL 8.5 MG/DL (8.5-10.1); CREATININE FOR GFR 1.61 MG/DL (0.55-1.30); GLOMERULAR FILTRATION RATE 36.5 (>58); POTASSIUM SERUM 3.2 MEQ/L (3.5-5.1)
[2019-03-30] MEDS ORDERED: POTASSIUM CHLORIDE 10 MEQ SR TABLET PO ONE (07:30)
[2019-03-30 07:55] LABS: MAGNESIUM LEVEL 1.6 MG/DL (1.8-2.4)
[2019-03-30] MEDS: MIRALAX *UNIT DOSE* 17GM PACKET PO SCH (07:56)
[2019-03-30] MEDS: CEFDINIR 300 MG CAP (OMNICEF) PO SCH (07:56)
[2019-03-30] MEDS: DOCUSATE SODIUM 100 MG CAP PO SCH ×2 (07:57→20:59)
[2019-03-30] MEDS ORDERED: MAGNESIUM OXIDE 400 MG TAB (MAG-OX) PO ONE (09:00)
[2019-03-30] MEDS ORDERED: PROPOFOL 200 MG/20 ML VIAL As Ordered ONE (13:39)
[2019-03-30] MEDS ORDERED: LIDOCAINE 2% INJ 100 MG/5 ML SDV (FOR ANES.) As Ordered ONE (13:39)
[2019-03-30] MEDS ORDERED: MIDAZOLAM INJ 2 MG/2 ML VIAL (J2250) As Ordered ONE (13:40)
[2019-03-30] MEDS ORDERED: fentaNYL 100 MCG/2 ML INJECTION (J3010) As Ordered ONE (13:40)
[2019-03-30] MEDS ORDERED: CONRAY-60 60% 50ML VIAL (Q9961) As Ordered ONE (13:59)
[2019-03-30] MEDS ORDERED: ceFAZolin 2 GM/D5W 50 ML IV BAG (J0690 PER 500MG) As Ordered ONE (14:31)
[2019-03-30] MEDS ORDERED: dexameTHASONE 4 MG/ML 1ML VIAL (J1100) As Ordered ONE (14:54)
[2019-03-30] MEDS ORDERED: ACETAMINOPHEN 1000MG 100ML IV BTL (OFIRMEV) (J0131 PER 10MG) As Ordered ONE (14:54)
[2019-03-30] MEDS ORDERED: KETOROLAC 60 MG/2 ML VIAL (J1885) As Ordered ONE (14:54)
[2019-03-30] MEDS ORDERED: ONDANSETRON 4MG/2ML VIAL (J2405) As Ordered ONE (14:54)
[2019-03-30 16:10] VITALS: BP 115/74
--- NOTE | 2019-03-30 17:38 | IPNPDOC ---
Text Note Date of Service The patient was seen on 03/30/19. NOTE SUBJECTIVE: Patient was seen at bedside today. She was febrile with a temperature of 102.5 overnight. She continues to have dry heaves, but they are not as frequent. Her abdominal pain continues to be intermittent in nature, radiating into the left flank. She continues to have frequency, but feels like she is not producing a lot of urine still. Denies dysuria. She will be going to the OR this afternoon with Dr. Foote for laser lithotripsy. She denies chest pain, shortness of breath, difficulty breathing, palpitations, or bilateral lower externally selling OBJECTIVE: VITAL SIGNS: Please see below. GENERAL: Lying in bed, appears older than stated age, tired, and in no acute distress HEENT: Normocephalic/atraumatic. Mucus membranes moist and pink. No scleral icterus NECK: Supple, no masses no JVD HEART: Regular rate and rhythm. No murmurs, rubs, or gallops. LUNGS: Clear to auscultation bilaterally. No wheezes, rhonchi, or rales. ABDOMEN: No rashes, bumps, or bruises. Bowel sounds present in all four quadrants. Tender to palpation in left lower quadrant along the inguinal ligament. No guarding or rebound. BACK: CVA tenderness on the left EXTREMITIES: No clubbing, cyanosis, or edema PSYCH: Patient is pleasant and cooperative. She answers questions appropriately. IMAGING: Moderate left-sided hydronephrosis and hydroureter with obstructive uropathy due to a 6 mm distal ureteral calculus in the left ureterovesical junction. ASSESSMENT: Patient is a 48 year old female with a past medical history of pancreatitis who was admitted for evaluation and treatment of pyelonephritis. Hospital day #4, antibiotics day #4. PLAN: 1. Left-sided flank pain secondary to obstructing distal left ureteral calculus - Day #4 of antibiotics, cephalosporins switched to IV Zosyn for better empiric coverage as the patient continued to have fevers and an increase in her leukocytosis - c/w IV fluids - Nausea control with intravenous ondansetron and prochlorperazine - Pain control with acetaminophen - Dr. Foote consulted from urology, will do laser lithotripsy this afternoon 2. Hyperlipidemia - Continue simvastatin therapy 3. Chronic pancreatitis - Maintain adequate hydration by intravenous fluids 4. DVT prophylaxis: subcutaneous heparin Disposition: Potential discharge in the next 24-48 hours. VS,Fishbone, I+O VS, Fishbone, I+O Laboratory Tests 03/30/19 05:48 Vital Signs Date Time Temp Pulse Resp B/P (MAP) Pulse Ox O2 Delivery O2 Flow Rate FiO2 03/30/19 16:10 98.9 94 16 115/74 (88) 96 Room Air 03/30/19 15:30 2 I&O- Last 24 Hours up to 6 AM 03/30/19 06:00 Intake Total 2810 ml Balance 2810 ml GME ATTESTATION GME ATTESTATION My faculty preceptor for this patient encounter was physically present during the encounter and was fully available. All aspects of the patient interview, examination, medical decision making process, and medical care plan development were reviewed and approved by the faculty preceptor. The faculty preceptor is aware and concurs with the plan as stated in the body of this note and will attest to such by his/her cosignature. ROSS SIMS D.O. Mar 30, 2019 17:38
[2019-03-30 17:44] VITALS: BP 125/81
[2019-03-30] MEDS: NS 1,000 ML IV SCH (18:15)
[2019-03-30] MEDS: PIPERACILLIN/TAZOBACTAM SOD 3.375 GM in D5W MINI-BAG PLUS 50 ML IV SCH (18:15)
[2019-03-30 18:51] VITALS: BP 104/70
[2019-03-30 19:40] VITALS: BP 117/74
[2019-03-30 20:40] VITALS: BP 118/72
[2019-03-30] MEDS: TAMSULOSIN 0.4 MG CAP PO SCH (20:58)
[2019-03-30] MEDS: SIMVASTATIN 40 MG TAB PO SCH (20:58)
[2019-03-31] MEDS: ACETAMINOPHEN TAB 650MG DOSE (2X325MG) PO PRN (00:26)
[2019-03-31] MEDS: PIPERACILLIN/TAZOBACTAM SOD 3.375 GM in D5W MINI-BAG PLUS 50 ML IV SCH ×4 (00:26→17:44)
[2019-03-31] MEDS ORDERED: NICOTINE 21MG/24HR 1 EA TRANSDERMAL TD ONE (01:00)
[2019-03-31 02:00] VITALS: BP 117/74
[2019-03-31] MEDS: ONDANSETRON 4MG/2ML VIAL (J2405) IV PRN ×2 (02:14→11:51)
[2019-03-31] MEDS: MORPHINE 2 MG/ML 1ML VIAL (J2270) IV PRN (02:49)
[2019-03-31] MEDS: PROCHLORPERAZINE 5 MG TAB (S0183) PO PRN (05:13)
[2019-03-31 06:00] VITALS: BP 134/88
[2019-03-31] MEDS: HEPARIN SOD (PORCINE) 5000 UNITS/ML VIAL SC SCH ×4 (06:00→21:36)
[2019-03-31 07:03] LABS: HEMATOCRIT 33.8 % (36.0-47.0); HEMOGLOBIN 11.8 g/dl (12.0-15.5); MEAN CORPUSCULAR HEMOGLOBIN 32.2 pg (27.0-33.0); MEAN CORPUSCULAR HGB CONC 34.9 g/dl (32.0-36.5); MEAN CORPUSCULAR VOLUME 92.3 fl (80.0-96.0); PLATELET COUNT, AUTOMATED 212 10^3/uL (150-450); RED BLOOD COUNT 3.66 10^6/uL (4.00-5.40)
[2019-03-31 07:37] LABS: CALCIUM LEVEL 8.8 MG/DL (8.5-10.1); CREATININE FOR GFR 1.33 MG/DL (0.55-1.30); GLOMERULAR FILTRATION RATE 45.5 (>58); POTASSIUM SERUM 3.6 MEQ/L (3.5-5.1)
[2019-03-31 07:51] LABS: LYMPHOCYTES 12 % (16-44); MONOCYTES 9 % (0-5); NEUTROPHILS 77 % (28-66)
[2019-03-31 07:52] LABS: ANISOCYTOSIS 1+; PLATELET ESTIMATE NORMAL (NORMAL)
[2019-03-31 07:53] LABS: TOXIC GRANULATION 1+
[2019-03-31] MEDS: MIRALAX *UNIT DOSE* 17GM PACKET PO SCH (07:56)
[2019-03-31] MEDS: DOCUSATE SODIUM 100 MG CAP PO SCH ×3 (07:56→21:30)
[2019-03-31 08:24] LABS: MAGNESIUM LEVEL 1.9 MG/DL (1.8-2.4)
[2019-03-31] MEDS: PROMETHAZINE INJ 25 MG/ML VIAL (J2550) IV PRN ×3 (09:11→21:30)
--- NOTE | 2019-03-31 10:28 | IPNPDOC ---
Text Note Date of Service The patient was seen on 03/31/19. NOTE SUBJECTIVE: Patient was seen at bedside today. There were no fevers overnight. She continued to have emesis and dry heaves overnight. Her abdominal pain has improved. Denies dysuria. She denies chest pain, shortness of breath, difficulty breathing, palpitations, or bilateral lower externally swelling OBJECTIVE: VITAL SIGNS: Please see below. GENERAL: Lying in bed, appears older than stated age, tired and ill-appearing HEENT: Normocephalic/atraumatic. Mucus membranes moist and pink. No scleral icterus NECK: Supple, no masses no JVD HEART: Regular rate and rhythm. No murmurs, rubs, or gallops. LUNGS: Clear to auscultation bilaterally. No wheezes, rhonchi, or rales. ABDOMEN: Bowel sounds present in all four quadrants. Mild tenderness to palpation in left lower quadrant along the inguinal ligament (improved from previous exam). No guarding or rebound. BACK: CVA tenderness on the left EXTREMITIES: No clubbing, cyanosis, or edema PSYCH: Patient is pleasant and cooperative. She answers questions appropriately. IMAGING: Moderate left-sided hydronephrosis and hydroureter with obstructive uropathy due to a 6 mm distal ureteral calculus in the left ureterovesical junction. ASSESSMENT: Patient is a 48 year old female with a past medical history of pancreatitis who was admitted for evaluation and treatment of pyelonephritis. Hospital day #5, antibiotics day #5/7. POD#1 s/p laser lithotripsy by Dr. Foote PLAN: 1. Left-sided flank pain from pyelonephritis secondary to obstructing distal left ureteral calculus - Day #5/7 of antibiotics, cephalosporins switched to IV Zosyn 03/30/19 post- operatively for better empiric coverage - c/w IV fluids - Nausea control with intravenous ondansetron and prochlorperazine - Pain control with acetaminophen - Dr. Foote consulted from urology, POD#1 s/p laser lithotripsy 03/30/19 - leukocytosis improving, renal function improving 2. Hyperlipidemia - Continue simvastatin therapy 3. Chronic pancreatitis - Maintain adequate hydration by intravenous fluids 4. DVT prophylaxis: subcutaneous heparin Disposition: Potential discharge in the next 24-48 hours. VS,Fishbone, I+O VS, Fishbone, I+O Laboratory Tests 03/31/19 06:44 Vital Signs Date Time Temp Pulse Resp B/P (MAP) Pulse Ox O2 Delivery O2 Flow Rate FiO2 03/31/19 06:00 98.3 96 18 134/88 (103) 96 Room Air 03/30/19 15:30 2 I&O- Last 24 Hours up to 6 AM 03/31/19 06:00 Intake Total 1400 ml Output Total 500 ml Balance 900 ml GME ATTESTATION GME ATTESTATION My faculty preceptor for this patient encounter was physically present during the encounter and was fully available. All aspects of the patient interview, examination, medical decision making process, and medical care plan development were reviewed and approved by the faculty preceptor. The faculty preceptor is aware and concurs with the plan as stated in the body of this note and will attest to such by his/her cosignature. ROSS SIMS D.O. Mar 31, 2019 10:28
--- NOTE | 2019-03-31 11:50 | IPNPDOC ---
Subjective Review oF Systems Chief Complaint The patient is a 48-year-old female admitted with a reason for visit of Pyelonephritis. General: Reports: Malaise Constitutional: Reports: Weakness, Other (Nausea) Eyes: Denies: Pain, Vision change, Conjunctivae inflammation, Eyelid inflammati on, Redness, Other ENT: Reports: Head Aches Skin: Denies: Rash, Lesions, Jaundice, Bruising, Itching, Dry, Breakdown, Nail Changes, Other Pulmonary: Denies: Dyspnea, Cough, Pleuritic Chest Pain, Other Symptoms Cardiovascular: Denies Chest Pain, Denies Palpitations, Denies Orthopnea, Denies Paroxysmal Noc. Dyspnea, Denies Edema, Denies Lt Headedness, Denies Other Symptoms Gastrointestinal: Reports: Nausea; Denies: Vomiting, Abdominal Pain, Diarrhea, Constipation, Melena, Hematochezia, Other Symptoms Genitourinary: Reports: Dysuria, Other Symptoms (Hematuria); Denies: Frequency, Incontinence, Hematuria, Retention Endocrine: Denies: Polydipsia, Polyphagia, Polyuria, Heat Intolerance, Cold Intolerance, Other Endocrine Sx Musculoskeletal: Denies: Neck Pain, Back Pain, Shoulder Pain, Arm Pain, Hand Pain, Leg Pain, Foot Pain, Joint Pain, Muscle Pain, Spasms, Other Symptoms Neurological: Denies: Weakness, Numbness, Incoordination, Change in Speech, Confusion, Seizures, Other Symptoms Psych: Denies: Mood Normal, Anxiety, Depression, Memory Issues, Thoughts of Self Harm, Anger, Thoughts of harming Other, Other Psych Objective Physical Examination General Exam: Cooperative, Moderate Distress Eye Exam: PERRLA ENT EXAM: Atraumatic Neck Exam: Supple Chest Exam: Clear to auscultation Heart Exam: Positive: Rate Normal Telemetry: No significant arrhythmia ABDOMEN EXAM: Normal bowel sounds Skin Exam: No: Nl turgor and temperature, Rash, Breakdown, Lesion, Pruritus, Other skin issue Psych Exam: No: Mental status NL, Mood NL, Anxiety, Memory Intact, Oriented x 3, Other Other physical findings Mild left CVA tenderness WBC is 18 - down from yesterday Blood cultures negative Vital Signs/I&O Vital Signs Date Time Temp Pulse Resp B/P (MAP) Pulse Ox O2 Delivery O2 Flow Rate FiO2 03/31/19 06:00 98.3 96 18 134/88 (103) 96 Room Air 03/30/19 15:30 2 I&O- Last 24 Hours up to 6 AM 03/31/19 06:00 Intake Total 1400 ml Output Total 500 ml Balance 900 ml Laboratory Data Labs 24H Laboratory Tests 2 03/30/19 15:13: 03/31/19 06:44: Nucleated Red Blood Cells % (auto) 0.0, Neutrophils 77H, Band Neutrophils 2, Lymphocytes (Manual) 12L, Monocytes (Manual) 9H, Anisocytosis 1+, Toxic Granulation 1+, Platelet Estimate NORMAL, Anion Gap 9, Glomerular Filtration Rate 45.5L, Calcium Level 8.8, Magnesium Level 1.9 CBC/BMP Laboratory Tests 03/31/19 06:44 Microbiology Microbiology 03/30/19 Blood Culture - Preliminary, Resulted No growth after 24 hours . All specim... 03/30/19 Blood Culture - Preliminary, Resulted No growth after 24 hours . All specim... 03/27/19 Blood Culture - Preliminary, Resulted No Growth after 72 hours. All specime... 03/27/19 Blood Culture - Preliminary, Resulted No Growth after 72 hours. All specime... 03/27/19 Urine Culture - Final, Complete Assessment/Plan Date Seen The patient was seen on 03/31/19. Problems (1) Pyelonephritis Status: Acute Response to Treatment: Improving Discussed With: Patient Urology Problem Text: Patient is tolerating the stent well and should be able to be discarged in 1 more day Stent will be removed in office in 2 weeks Plan/VTE VTE Prophylaxis Ordered?: No VTE Exclusion Mechanical Proph: Low Risk for VTE Plan Continue antibiotics for the next 24-48 hours Hydrate Cndition should improve in 24 hours with the stent Currently having some stent discomfort MONSE MERRITT MD Mar 31, 2019 11:50
[2019-03-31 13:33] VITALS: BP 133/89
[2019-03-31 14:01] LABS: BILIRUBIN, URINE MANUAL NEGATIVE (NEGATIVE); GLUCOSE, URINE (UA) MANUAL NEGATIVE (NEGATIVE); KETONE, URINE MANUAL 1+ mg/dL (NEGATIVE); UROBILINOGEN, URINE MANUAL NORMAL (NORMAL)
[2019-03-31 14:10] LABS: RBC, URINE TNTC /hpf (0-3)
[2019-03-31 14:11] LABS: BACTERIA, URINE MOD AMOUNT; SQUAMOUS EPITHELIAL CELL URINE NONE SEEN /hpf (SMALL AMT)
[2019-03-31 14:12] LABS: HYALINE CAST, URINE NONE SEEN /lpf (0-1)
[2019-03-31] MEDS: NICOTINE 21MG/24HR 1 EA TRANSDERMAL TD SCH (21:00)
[2019-03-31] MEDS: TAMSULOSIN 0.4 MG CAP PO SCH (21:30)
[2019-03-31] MEDS: SIMVASTATIN 40 MG TAB PO SCH (21:30)
[2019-03-31 22:00] VITALS: BP 149/91
[2019-03-31] MEDS: NS 1,000 ML IV SCH (22:00)
[2019-04-01] MEDS: PIPERACILLIN/TAZOBACTAM SOD 3.375 GM in D5W MINI-BAG PLUS 50 ML IV SCH ×4 (00:19→17:53)
[2019-04-01] MEDS: ONDANSETRON 4MG/2ML VIAL (J2405) IV PRN ×3 (00:20→21:03)
[2019-04-01] MEDS: PROMETHAZINE INJ 25 MG/ML VIAL (J2550) IV PRN (03:55)
[2019-04-01] MEDS: MORPHINE 2 MG/ML 1ML VIAL (J2270) IV PRN ×4 (03:55→21:02)
[2019-04-01] MEDS: HEPARIN SOD (PORCINE) 5000 UNITS/ML VIAL SC SCH ×3 (05:52→21:01)
[2019-04-01 06:00] VITALS: BP 190/110
[2019-04-01 06:55] LABS: BASO % 0.1 % (0.0-1.0); EOS # 0.1 10^3/uL (0.0-0.5); EOS % 0.3 % (0.0-3.0); HEMATOCRIT 32.4 % (36.0-47.0); HEMOGLOBIN 11.4 g/dl (12.0-15.5); LYMPH # 2.6 10^3/uL (1.5-5.0); MEAN CORPUSCULAR HEMOGLOBIN 31.6 pg (27.0-33.0); MEAN CORPUSCULAR HGB CONC 35.2 g/dl (32.0-36.5); MEAN CORPUSCULAR VOLUME 89.8 fl (80.0-96.0); MONO # 1.2 10^3/uL (0.0-0.8); MONO % 8.2 % (0.0-5.0); NEUTROPHILS # 10.5 10^3/uL (1.5-8.5); NEUTROPHILS % 72.6 % (36.0-66.0); PLATELET COUNT, AUTOMATED 222 10^3/uL (150-450); RED BLOOD COUNT 3.61 10^6/uL (4.00-5.40); WHITE BLOOD COUNT 14.5 10^3/uL (4.0-10.0)
[2019-04-01 07:21] LABS: CALCIUM LEVEL 8.3 MG/DL (8.5-10.1); CREATININE FOR GFR 1.07 MG/DL (0.55-1.30); GLOMERULAR FILTRATION RATE 58.3 (>58); POTASSIUM SERUM 3.1 MEQ/L (3.5-5.1)
[2019-04-01 07:50] LABS: MAGNESIUM LEVEL 1.8 MG/DL (1.8-2.4)
[2019-04-01] MEDS ORDERED: POTASSIUM CHLORIDE 10 MEQ SR TABLET PO ONE (08:00)
[2019-04-01] MEDS: DOCUSATE SODIUM 100 MG CAP PO SCH ×2 (08:38→21:03)
[2019-04-01] MEDS: MIRALAX *UNIT DOSE* 17GM PACKET PO SCH (09:00)
--- NOTE | 2019-04-01 11:31 | IPNPDOC ---
Text Note Date of Service The patient was seen on 04/01/19. NOTE SUBJECTIVE: Patient was seen at bedside today. Feels much better today. Still some abdominal pain, but much improved. No acute overnight events reported, no new medical complaints. OBJECTIVE: VITAL SIGNS: Please see below. General: NAD, lying comfortably in bed HEENT: NC/AT, EOMI Lungs: CTA B/L Heart: +S1S2, RRR Abd: soft, mild LLQ tenderness, +BS Ext: no edema IMAGING: Moderate left-sided hydronephrosis and hydroureter with obstructive uropathy due to a 6 mm distal ureteral calculus in the left ureterovesical junction. ASSESSMENT: Patient is a 48 year old female with a past medical history of chronic pancreatitis, admitted for pyelonephritis, POD #2 laser lithotripsy by urology. PLAN: # Left-sided flank pain from pyelonephritis secondary to obstructing distal left ureteral calculus - s/p lithiotripsy with ureteral stent placement - Day #6 of antibiotics, cephalosporins switched to IV Zosyn 03/30/19 post- operatively for better empiric coverage - c/w IV fluids - Nausea control with intravenous ondansetron and prochlorperazine - Pain control with acetaminophen - follow as per urology - assistance appreciated -POD#2 s/p laser lithotripsy 03/30/19 - leukocytosis improving, renal function improving # Hyperlipidemia - Continue simvastatin therapy # Chronic pancreatitis #nicotine abuse - nicotine replacement therapy #medical non-compliance - complicates care #DVT prophylaxis: subcutaneous heparin Disposition: Potential discharge in the next 24-48 hours, f/u urology for stent removal 2 weeks VS,Cassandra, I+O VS, Cassandra, I+O Laboratory Tests 04/01/19 06:08 Vital Signs Date Time Temp Pulse Resp B/P (MAP) Pulse Ox O2 Delivery O2 Flow Rate FiO2 04/01/19 09:10 16 04/01/19 06:00 98.0 93 190/110 (136) 97 Room Air 03/30/19 15:30 2 I&O- Last 24 Hours up to 6 AM 04/01/19 06:00 Intake Total 840 ml Output Total 1000 ml Balance -160 ml SHERRY SOLIS MD Apr 01, 2019 11:31
--- NOTE | 2019-04-01 12:37 | IPNPDOC ---
Subjective Review oF Systems Chief Complaint The patient is a 49-year-old female admitted with a reason for visit of Pyelonephritis. Events since Last Encounter No new events General: Reports: Normal Appetite; Denies: Fatigue, Malaise Constitutional: Denies: Fever, Chills, Sweats, Weakness, Malaise Eyes: Denies: Pain, Vision change ENT: Reports: Head Aches (Still has a small headache); Denies: Ear Pain, Dysphagia, Sinus Congestion, Post Nasal Drip, Sore Throat, Epistaxis, Other Symptoms Skin: Denies: Rash, Lesions, Breakdown, Nail Changes Pulmonary: Denies: Dyspnea, Cough Cardiovascular: Denies Chest Pain, Denies Palpitations Gastrointestinal: Denies: Nausea, Vomiting, Abdominal Pain Genitourinary: Denies: Dysuria, Frequency, Incontinence, Hematuria Hematologic: Denies: Bruising, Bleeding Excessively Endocrine: Denies: Polydipsia, Polyphagia, Polyuria Musculoskeletal: Denies: Neck Pain, Back Pain, Shoulder Pain, Arm Pain, Hand Pain, Leg Pain, Foot Pain, Joint Pain, Muscle Pain, Spasms, Other Symptoms Neurological: Denies: Weakness, Numbness, Incoordination, Change in Speech Psych: Reports: Mood Normal; Denies: Anxiety, Depression Objective Physical Examination General Exam: Cooperative, Mild Distress, Moderate Distress; No: Alert, No Acute Distress, Severe Distress, Other Eye Exam: PERRLA ENT EXAM: Atraumatic Neck Exam: Supple; No: JVD, thyromegaly, +2 carotid pulse wo bruit, Lymphadenopathy, Other Chest Exam: Clear to auscultation; No: Normal air movement, Rales, Rhonchi, Wheezing, Diminished, Other Heart Exam: Positive: Rate Normal; Negative: Tachycardic, Bradycardic, Regular Rhythm, Irregular Rhythm, Normal S1, Normal S2, Gallops, Murmurs, Rubs, Other Telemetry: No significant arrhythmia; No: Sinus, Atrial fibrillation, Tachycardia, Bradycardia, AV Block, Pause, SV Tach, PVCs, PACs, Asystole, Other Telemetry: ABDOMEN EXAM: Normal bowel sounds; No: BS Hyperactive, BS Hypoactive, Soft, Tenderness, Hepatospenomegaly, Mass, Hernia, Other Female Exam: No: Nl Ext Genitalia, Normal Cervical Exam, Lesions, Discharge, Odor, Tenderness, Nl Rectal Sphincter Tone Extremity Exam: No: Clubbing, Cyanosis, Edema, Normal pulses, Tenderness, Swelling, Other Psych Exam: No: Mental status NL, Mood NL, Anxiety, Memory Intact, Oriented x 3, Other Vital Signs/I&O Vital Signs Date Time Temp Pulse Resp B/P (MAP) Pulse Ox O2 Delivery O2 Flow Rate FiO2 04/01/19 09:10 16 04/01/19 06:00 98.0 93 190/110 (136) 97 Room Air 03/30/19 15:30 2 I&O- Last 24 Hours up to 6 AM 04/01/19 06:00 Intake Total 840 ml Output Total 1000 ml Balance -160 ml Laboratory Data Labs 24H Laboratory Tests 2 03/31/19 13:45: Urine Color (WILLAM) BROWNH, Urine Appearance (WILLAM) TURBIDH, Urine pH (WILLAM) 5.0, Urine Specific [place] (WILLAM) 1.020, Urine Protein 2+H, Bedside Urine Glucose (UA) NEGATIVE, Bedside Urine Ketones (LAB) 1+H, Bedside Urine Blood POSITIVEH, Bedside Urine Nitrite (LAB) NEGATIVE, Bedside Urine Bilirubin (LAB) NEGATIVE, Bedside Urine Urobilinogen (LAB) NORMAL, Bedside Urine Leukocyte Esterase (L POSITIVEH, Urine Sediment Examination PERFORMED, Urine RBC TNTCH, Urine WBC 5- 7H, Urine Squamous Epithelial Cells NONE SEEN, Urine Bacteria MOD AMOUNTH, Urine Hyaline Casts NONE SEEN 04/01/19 06:08: Immature Granulocyte % (Auto) 0.8, Neutrophils (%) (Auto) 72.6H, Lymphocytes (%) (Auto) 18.0L, Monocytes (%) (Auto) 8.2H, Eosinophils (%) (Auto) 0.3, Basophils (%) (Auto) 0.1, Neutrophils # (Auto) 10.5H, Lymphocytes # (Auto) 2.6, Monocytes # (Auto) 1.2H, Eosinophils # (Auto) 0.1, Basophils # (Auto) 0.0, Nucleated Red Blood Cells % (auto) 0.0, Anion Gap 8, Glomerular Filtration Rate 58.3, Calcium Level 8.3L, Magnesium Level 1.8 CBC/BMP Laboratory Tests 04/01/19 06:08 Microbiology Microbiology 03/31/19 Urine Culture - Final, Complete 03/30/19 Blood Culture - Preliminary, Resulted No Growth after 48 hours. All Specime... 03/30/19 Blood Culture - Preliminary, Resulted No Growth after 48 hours. All Specime... 03/27/19 Blood Culture - Final, Complete NO GROWTH AFTER 5 DAYS 03/27/19 Blood Culture - Final, Complete NO GROWTH AFTER 5 DAYS 03/27/19 Urine Culture - Final, Complete Assessment/Plan Date Seen The patient was seen on 04/01/19. Patient Summary Pt is feeling improved, but still has a mild headache and mild nausea Afebrile Problems (1) Pyelonephritis Status: Acute Response to Treatment: Improving Urology Problem Text: Patient is tlerating the stent well and should be able to be discarged in 1 more day Stent will be removed in office in 2 weeks Plan/VTE VTE Prophylaxis Ordered?: No MONSE MERRITT MD Apr 01, 2019 12:37
[2019-04-01 14:00] VITALS: BP 131/81
[2019-04-01] MEDS: NICOTINE 21MG/24HR 1 EA TRANSDERMAL TD SCH (21:01)
[2019-04-01] MEDS: SIMVASTATIN 40 MG TAB PO SCH (21:03)
[2019-04-01] MEDS: TAMSULOSIN 0.4 MG CAP PO SCH (21:03)
[2019-04-01 22:00] VITALS: BP 140/85
[2019-04-02] MEDS: PIPERACILLIN/TAZOBACTAM SOD 3.375 GM in D5W MINI-BAG PLUS 50 ML IV SCH ×4 (00:41→17:20)
[2019-04-02] MEDS: NS 1,000 ML IV SCH (00:41)
[2019-04-02] MEDS: MORPHINE 2 MG/ML 1ML VIAL (J2270) IV PRN (01:24)
[2019-04-02] MEDS: HEPARIN SOD (PORCINE) 5000 UNITS/ML VIAL SC SCH ×2 (05:19→14:00)
[2019-04-02 06:00] VITALS: BP 144/96
[2019-04-02 06:22] LABS: HEMATOCRIT 33.7 % (36.0-47.0); HEMOGLOBIN 11.7 g/dl (12.0-15.5); MEAN CORPUSCULAR HEMOGLOBIN 31.5 pg (27.0-33.0); MEAN CORPUSCULAR HGB CONC 34.7 g/dl (32.0-36.5); MEAN CORPUSCULAR VOLUME 90.6 fl (80.0-96.0); PLATELET COUNT, AUTOMATED 236 10^3/uL (150-450); RED BLOOD COUNT 3.72 10^6/uL (4.00-5.40)
[2019-04-02 06:23] LABS: WHITE BLOOD COUNT 13.7 10^3/uL (4.0-10.0)
[2019-04-02 06:37] LABS: CALCIUM LEVEL 8.3 MG/DL (8.5-10.1); CREATININE FOR GFR 1.08 MG/DL (0.55-1.30); GLOMERULAR FILTRATION RATE 57.6 (>58); POTASSIUM SERUM 3.2 MEQ/L (3.5-5.1)
[2019-04-02 06:42] LABS: BASOPHILS 2 % (0-1); LYMPHOCYTES 41 % (16-44); MONOCYTES 6 % (0-5); NEUTROPHILS 51 % (28-66); PLATELET ESTIMATE NORMAL (NORMAL)
[2019-04-02] MEDS ORDERED: POTASSIUM CHLORIDE 10 MEQ SR TABLET PO ONE (08:00)
[2019-04-02] MEDS: ONDANSETRON 4MG/2ML VIAL (J2405) IV PRN ×2 (08:10→14:37)
[2019-04-02] MEDS: MIRALAX *UNIT DOSE* 17GM PACKET PO SCH (08:10)
[2019-04-02] MEDS: DOCUSATE SODIUM 100 MG CAP PO SCH (08:10)
--- NOTE | 2019-04-02 08:17 | RO ---
DATE OF PROCEDURE: 03/30/2019 PREPROCEDURE DIAGNOSIS: Left ureteral calculus with hydronephrosis. POSTPROCEDURE DIAGNOSIS: Left ureteral calculus with hydronephrosis. PROCEDURE: Cystoscopy with left retrograde pyelogram, ureteroscopic stone extraction and stent insertion. SURGEON: Dr. Bin Foote BOTTOM FILLER: None ANESTHESIA: General. INDICATION FOR OPERATION: This is a 48-year-old white female who presented with abdominal pain, thought at first to be pancreatitis. A CT scan showed that she has a distal left ureteral calculus causing obstruction and urology consult was called. After evaluation it was determined the patient needed to come to the operating room to have the stone extracted. DESCRIPTION OF PROCEDURE: The patient was anesthetized with general anesthesia, placed in the lithotomy position, prepped with Betadine paint and draped in an aseptic manner. Time-out was then performed. A cystoscope was inserted into the meatus after dilating the urethral meatus with female sounds. The cystoscope was then introduced into the normal right ureteral orifice and bladder mucosa. The left ureteral orifice was pouched and just inside the meatus could be a calculus. The cystoscope was then exchanged for a ureteroscope which was advanced up to the orifice and a basket was able to manipulated around the stone. With some manipulation the stone was finally grasped in the stone basket and extracted. Once the stone was extracted the patient had some purulent looking urine drain from behind the stone. A wire guide was then inserted up to the renal pelvis and a 6 Vincentian double J stent was passed over this wire and curled well in the renal pelvis and in the bladder when the wire was removed. The bladder was then drained, cystoscope was removed, and the patient was awaked and sent to recovery room in stable condition having tolerated the procedure well. [facility]
[2019-04-02] MEDS: PROMETHAZINE INJ 25 MG/ML VIAL (J2550) IV PRN (10:00)
[2019-04-02] MEDS ORDERED: FLOM0.4C39 PO (12:35)
[2019-04-02] MEDS ORDERED: CALCIUM CARBONATE 500 MG CHEW U/D PO ONE (13:00)
[2019-04-02] MEDS ORDERED: SIMETHICONE 80 MG CHEW TAB PO PRN (13:15)
[2019-04-02 14:00] VITALS: BP 160/70
--- NOTE | 2019-04-02 14:09 | DS.PDOC ---
Discharge Summary General Date of Admission Mar 27, 2019 at 11:36 Date of Discharge Apr 02, 2019 Attending Physician: MARLIN GRAHAM MD Specialist/Consultants Involve: MONSE MERRITT MD Discharge Summary PROCEDURES PERFORMED DURING STAY: Cystoscopy with left retrograde pyelogram, ureteroscopic stone extraction and stent insertion. ADMITTING DIAGNOSES: 1. Pyelonephritis 2. Hyperlipidemia 3. Anxiety/Depression 4. Chronic Pancreatitis DISCHARGE DIAGNOSES: 1. Pyelonephritis 2. Nephrolithiasis 3. Hyperlipidemia 4. Anxiety/Depression 5. Chronic Pancreatitis COMPLICATIONS/CHIEF COMPLAINT: Pyelonephritis. HISTORY OF PRESENT ILLNESS: Patient is a 49 y/o female who presented to the [facility] emergency department with a 2 day history of worsening suprapubic pain which radiated to the left flank. She has baseline nausea attributed to her chronic pancreatitis, but this had been worsening over the course of her abdominal pain. She had been to the urgent care on day 1, diagnosed with acute on chronic pancreatitis, and prescribed anti-emetics. Pt complained of chills. Pt denied fevers, vomiting chest pain, headaches, vision changes, recent travel or sick contacts, recent UTIs, or recent antibiotic use. HOSPITAL COURSE: Pt was given IV ceftriaxone in the emergency department and admitted to the progressive care unit for continuing IV antibiotics and pain and nausea management. Nausea was controlled with ondansetron and prochlorperazine. Pain was controlled with acetaminophen PRN until hospital day 2, when she began receiving IV morphine PRN. Pt received subcutaneous heparin for DVT prophylaxis. IV hydration was maintained throughout her stay. Hyperlipidemia was managed with her home regimen of simvastatin. On hospital day 1, blood and urine were collected for culture. Both cultures showed no growth. CBC showed leukocytosis with neutrophilia. On hospital day 2, pt continued to deny dysuria and noted that she had increased urinary frequency with very little urine produced. On hospital day 3, IV ceftriaxone was switched to IV cefdinir and a CT abdomen/pelvis was performed with and without contrast. It showed a 6mm ureteral calculus at the left ureterovesical junction causing moderate left-sided hydronephrosis and hydroureter. Urologist Monse Merritt MD was consulted, and his assistance was appreciated. Dr. Merritt assessed the patient, obtained consent, and performed ureteroscopic laser lithotripsy on hospital hospital day 4. IV cefdinir was switched to IV Zosyn post-operatively for better empiric coverage. On hospital days 6 and 7, pt reported continuing improvement. On hospital day 7, pt completed her antibiotic course, and discharge home was deemed appropriate upon examination. DISCHARGE MEDICATIONS: Please see below. ALLERGIES: Please see below. PHYSICAL EXAMINATION ON DISCHARGE: VITAL SIGNS: Please see below. GENERAL: Patient appears stated age, is in no acute distress, and is lying comfortably in bed. HEENT: Normocephalic, atraumatic. No scleral icterus. CARDIOVASCULAR EXAMINATION: Regular rate and rhythm. No murmurs, rubs, or gallops. RESPIRATORY EXAMINATION: Clear to auscultation b/l. No wheezes, rales, or rhonchi. ABDOMINAL EXAMINATION: No bruises, rashes, or bumps. Bowel sounds present in all 4 quadrants. Very mild suprapubic tenderness. No organomegaly. Nadeem's sign weakly positive on the left. EXTREMITIES: No peripheral edema. SKIN: Chemult, warm. PSYCHIATRIC EXAMINATION: Alert & oriented x3. Calm and cooperative. Responds appropriately to questions. LABORATORY DATA: Please see below. IMAGIN. Renal ultrasound 03/27/2019: From report: "Mild left hydronephrosis. No renal stone is visualized sonographically." 2. Noncontrast and contrast CT abdomen/pelvis 03/29/2019: From report: "Moderate left-sided hydronephrosis and hydroureter with obstructive uropathy due to a 6 mm distal ureteral calculus in the left ureterovesical junction. Previously, this calculus was in the intrarenal collecting system." 3. Retrograde pyelogram 03/30/2019 PROGNOSIS: Positive. ACTIVITY: As tolerated. DIET: As tolerated. DISCHARGE PLAN: Discharge to home with urology and primary care follow-up. DISPOSITION: Discharge to home with urology and primary care follow-up. DISCHARGE INSTRUCTIONS: 1. Follow up with urology in 14 days. 2. Please return to the ER if you experience fevers, chills, or back pain. ITEMS TO FOLLOWUP ON ON OUTPATIENT: 1. s/p ureteral stent 2. s/p lithotripsy 3. Ongoing chronic pancreatitis DISCHARGE CONDITION: Stable. TIME SPENT ON DISCHARGE: Greater than 30 minutes. Vital Signs/I&Os Vital Signs Date Time Temp Pulse Resp B/P (MAP) Pulse Ox O2 Delivery O2 Flow Rate FiO2 04/02/19 06:00 98.3 69 18 144/96 (112) 96 Room Air 03/30/19 15:30 2 I&O- Last 24 Hours up to 6 AM 04/02/19 05:59 Intake Total 1650 ml Output Total 0 ml Balance 1650 ml Laboratory Data Labs 24H Laboratory Tests 2 04/02/19 05:47: Lymphocytes # (Auto) , Nucleated Red Blood Cells % (auto) 0.0, Neutrophils 51, Lymphocytes (Manual) 41, Monocytes (Manual) 6H, Basophils (Manual) 2H, Red Blood Cell Morphology NORMAL, Platelet Estimate NORMAL, Anion Gap 5L, Glomerular Filtration Rate 57.6L, Calcium Level 8.3L CBC/BMP Laboratory Tests 04/02/19 05:47 Microbiology Microbiology 03/31/19 Urine Culture - Final, Complete 03/30/19 Blood Culture - Preliminary, Resulted No Growth after 48 hours. All Specime... 03/30/19 Blood Culture - Preliminary, Resulted No Growth after 48 hours. All Specime... 03/27/19 Blood Culture - Final, Complete NO GROWTH AFTER 5 DAYS 03/27/19 Blood Culture - Final, Complete NO GROWTH AFTER 5 DAYS 03/27/19 Urine Culture - Final, Complete Discharge Medications Scheduled Ergocalciferol (Vitamin D2) (Vitamin D2) 50,000 Unit Capsule, 50,000 UNIT PO Q WEEK, (Reported) MONDAYS Simvastatin (Simvastatin) 40 Mg Tablet, 40 MG PO QHS, (Reported) Tamsulosin HCl (Flomax) 0.4 Mg Capsule, 0.4 MG PO QHS Scheduled PRN Ondansetron HCl (Ondansetron HCl) 4 Mg Tablet, 4 MG PO BID PRN for NAUSEA OR VOMITING, (Reported) Allergies Coded Allergies: No Known Allergies (Unverified , 07/16/18) GME ATTESTATION E ATTESTATION My faculty preceptor for this patient encounter was physically present during the encounter and was fully available. All aspects of the patient interview, examination, medical decision making process, and medical care plan development were reviewed and approved by the faculty preceptor. The faculty preceptor is aware and concurs with the plan as stated in the body of this note and will attest to such by his/her cosignature. GME ATTESTATION GME ATTESTATION My faculty preceptor for this patient encounter was physically present during the encounter and was fully available. All aspects of the patient interview, examination, medical decision making process, and medical care plan development were reviewed and approved by the faculty preceptor. The faculty preceptor is aware and concurs with the plan as stated in the body of this note and will attest to such by his/her cosignature. ATTENDING NOTE Patient was seen and examined by me this morning with the residents. Agree with the above assessment and plan LONDON LEÓN S-III Apr 02, 2019 10:12 MARLIN GRAHAM MD Apr 02, 2019 15:26
== END 2019-04-02 18:30 | disposition home or self-care (01) | DRG 446 ==
LOC: M ED 09:03 → M ED INP 11:36 → M PCU 20:00 → M MS4PR 03-28 11:15 → M MS5PR 03-28 18:45
PROVIDERS: ADMIT Internal Medicine; ATTEND Internal Medicine
PROC: 0TC78ZZ Extirpation of Matter from Left Ureter, Via Natural or Artificial Opening Endoscopic (ICD-10-PCS; principal; 2019-03-30 15:00)
DX: N13.1 Hydronephrosis with ureteral stricture, not elsewhere classified (principal); K86.1 Other chronic pancreatitis; F41.9 Anxiety disorder, unspecified; F32.9 Major depressive disorder, single episode, unspecified; E78.5 Hyperlipidemia, unspecified; F17.200 Nicotine dependence, unspecified, uncomplicated; Z91.19 Patient's noncompliance with other medical treatment and regimen; N10 Acute pyelonephritis

== ENCOUNTER → 2019-06-28 | Outpatient (CLI) | payer OTHER ==
[~2019-06-28] MED LIST changes: +FLOM0.4C39 PO; +ONDA-83 PO; +SIMV40TA20 PO; +VITA500045 PO
[2019-06-28 17:02] LABS: BASO % 0.3 % (0.0-1.0); EOS % 0.1 % (0.0-3.0); HEMATOCRIT 42.5 % (36.0-47.0); HEMOGLOBIN 14.2 g/dl (12.0-15.5); LYMPH # 3.3 10^3/uL (1.5-5.0); LYMPH % 27.3 % (24.0-44.0); MEAN CORPUSCULAR HEMOGLOBIN 31.3 pg (27.0-33.0); MEAN CORPUSCULAR HGB CONC 33.4 g/dl (32.0-36.5); MEAN CORPUSCULAR VOLUME 93.8 fl (80.0-96.0); MONO # 0.7 10^3/uL (0.0-0.8); PLATELET COUNT, AUTOMATED 268 10^3/uL (150-450); RED BLOOD COUNT 4.53 10^6/uL (4.00-5.40); WHITE BLOOD COUNT 12.1 10^3/uL (4.0-10.0)
[2019-06-28 17:31] LABS: ALBUMIN 4.1 GM/DL (3.2-5.2); BILIRUBIN,TOTAL 0.4 MG/DL (0.2-1.0); CALCIUM LEVEL 10.1 MG/DL (8.5-10.1); CREATININE FOR GFR 1.05 MG/DL (0.55-1.30); GLOMERULAR FILTRATION RATE 59.5 (>58); POTASSIUM SERUM 4.8 MEQ/L (3.5-5.1); TOTAL PROTEIN 7.4 GM/DL (6.4-8.2)
== END ==
LOC: M WUC 14:04
PROVIDERS: ATTEND Nurse Practitioner Family
DX: R19.7 Diarrhea, unspecified (principal)

== ENCOUNTER → 2019-06-29 | Outpatient (REF) | payer OTHER | LOC: M LAB REF 10:24 | PROVIDERS: ATTEND Nurse Practitioner Family | DX: R19.7 Diarrhea, unspecified (principal) ==

== ENCOUNTER 2019-07-15 13:50 | Emergency (ER) | payer OTHER ==
[~2019-07-15] VITALS: Ht 172.7 cm; Wt 77.3 kg
[2019-07-15] MEDS ORDERED: ONDANSETRON 4MG/2ML VIAL (J2405) IV ONE (14:15)
[2019-07-15] MEDS ORDERED: NS 1,000 ML IV ONE (14:15)
[2019-07-15] MEDS ORDERED: KETOROLAC 30 MG/ML VIAL (J1885) IV ONE (14:15)
[2019-07-15 14:43] LABS: BASO % 0.3 % (0.0-1.0); HEMATOCRIT 42.3 % (36.0-47.0); HEMOGLOBIN 14.4 g/dl (12.0-15.5); LYMPH # 1.2 10^3/uL (1.5-5.0); LYMPH % 9.6 % (24.0-44.0); MEAN CORPUSCULAR HEMOGLOBIN 31.6 pg (27.0-33.0); MEAN CORPUSCULAR VOLUME 92.8 fl (80.0-96.0); MONO # 0.4 10^3/uL (0.0-0.8); MONO % 2.9 % (0.0-5.0); NEUTROPHILS # 10.5 10^3/uL (1.5-8.5); NEUTROPHILS % 86.9 % (36.0-66.0); PLATELET COUNT, AUTOMATED 293 10^3/uL (150-450); RED BLOOD COUNT 4.56 10^6/uL (4.00-5.40); WHITE BLOOD COUNT 12.1 10^3/uL (4.0-10.0)
[2019-07-15] MEDS ORDERED: ISOVUE-370 76% 100ML VIAL (Q9967) As Ordered ONE (14:45)
[2019-07-15 14:54] LABS: INR 0.98; PARTIAL THROMBOPLASTIN TIME 33.8 SECONDS (25.0-38.4); PROTHROMBIN TIME 12.7 SECONDS (11.8-14.0)
[2019-07-15 15:15] LABS: ALT/SGPT 23 U/L (12-78); BILIRUBIN,DIRECT < 0.1 MG/DL (0.0-0.2); BILIRUBIN,TOTAL 0.5 MG/DL (0.2-1.0); CK-MB VALUE MASS < 1.0 NG/ML (<3.6); CPK CREATINE PHOSPHOKINASE 97 U/L (26-192); LIPASE 203 U/L (73-393); MB/CK RELATIVE INDEX 1.03 (< OR =4); TOTAL PROTEIN 7.6 GM/DL (6.4-8.2); TROPONIN I < 0.02 NG/ML (< 0.10)
[2019-07-15] MEDS ORDERED: HALOPERIDOL 5 MG/ML VIAL (J1630) IV ONE (15:30)
[2019-07-15 15:33] LABS: HCG, SERUM QUALITATIVE NEGATIVE (NEGATIVE)
--- NOTE | 2019-07-15 16:08 | REP ---
Clinical: Abdominal pain with nausea and vomiting and diarrhea. Technique: Axial contrast enhanced images from the lung bases to the pubic symphysis using 100 ml Isovue 370 intravenous contrast material with coronal and sagittal re-formations. Comparison: 03/29/2019, 07/16/2018 . Findings: Lung bases demonstrate linear scarring at the right base similar to prior examination. Liver includes stable 4.7 cm hepatic cyst and smaller scattered subcentimeter hypodensities suggesting cysts as well as subcentimeter hemangioma along the periphery of the anterior right lobe. Spleen, pancreas, gallbladder, right adrenal gland and bilateral kidneys are normal. A 2.1 cm left adrenal adenoma remains stable. The enteric system is without obstruction or perforation, and mild colitis cannot definitively be excluded. Pelvis demonstrates normal bladder and age-appropriate uterus/adnexa. No pelvic fluid or ascites. No free air. No adenopathy. Abdominal aorta and vasculature normal. 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 Impression: 1. Mild colitis suggested and correlation is recommended. No bowel obstruction or perforation. No ascites. 2. Chronic, stable nonacute findings as described above. 3. Previously noted left-sided hydroureter nephrosis resolved. Electronically Signed by Jay Aguillon MD 07/15/2019 03:59 P
--- NOTE | 2019-07-15 16:17 | ECGEPIP ---
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
[2019-07-15] MEDS ORDERED: FLAG500T PO (17:07)
[2019-07-15] MEDS ORDERED: CIPR-249 PO (17:07)
[2019-07-15] MEDS ORDERED: PROM25TA12 PO (17:07)
[2019-07-15 17:23] VITALS: BP 136/67
== END 2019-07-15 17:25 | disposition home or self-care (01) ==
LOC: M ED 13:50
DX: K52.9 Noninfective gastroenteritis and colitis, unspecified (principal); F12.188 Cannabis abuse with other cannabis-induced disorder; F17.218 Nicotine dependence, cigarettes, with other nicotine-induced disorders
CPT/HCPCS: 74177; 80047; 80076; 81001; 82550; 82553; 83690; 84703; 85025; 85610; 85730; 93005; 96361; 96374; 96375; 99284; J1630; J1885; J2405; Q9967

== ENCOUNTER 2019-07-19 09:50 | Emergency (ER) | payer OTHER ==
[~2019-07-19] VITALS: Ht 172.7 cm; Wt 76.4 kg
[~2019-07-19 09:50] MED LIST changes: +CIPR-249 PO; +FLAG500T PO; +PROM25TA12 PO
[2019-07-19] MEDS ORDERED: PROMETHAZINE INJ 25 MG/ML VIAL (J2550) IV ONE (10:30)
[2019-07-19 10:43] LABS: BASO % 0.1 % (0.0-1.0); HEMATOCRIT 42.4 % (36.0-47.0); HEMOGLOBIN 14.5 g/dl (12.0-15.5); LYMPH # 1.5 10^3/uL (1.5-5.0); LYMPH % 10.1 % (24.0-44.0); MEAN CORPUSCULAR HEMOGLOBIN 31.7 pg (27.0-33.0); MEAN CORPUSCULAR HGB CONC 34.2 g/dl (32.0-36.5); MEAN CORPUSCULAR VOLUME 92.6 fl (80.0-96.0); MONO # 1.2 10^3/uL (0.0-0.8); MONO % 8.1 % (0.0-5.0); NEUTROPHILS # 12.2 10^3/uL (1.5-8.5); NEUTROPHILS % 81.1 % (36.0-66.0); PLATELET COUNT, AUTOMATED 292 10^3/uL (150-450); RED BLOOD COUNT 4.58 10^6/uL (4.00-5.40)
[2019-07-19 11:12] LABS: BILIRUBIN,DIRECT 0.1 MG/DL (0.0-0.2); BILIRUBIN,TOTAL 0.5 MG/DL (0.2-1.0); CALCIUM LEVEL 10.3 MG/DL (8.5-10.1); CREATININE FOR GFR 1.15 MG/DL (0.55-1.30); GLOMERULAR FILTRATION RATE 53.6 (>58); POTASSIUM SERUM 3.8 MEQ/L (3.5-5.1); TOTAL PROTEIN 7.9 GM/DL (6.4-8.2)
[2019-07-19 11:13] LABS: AMPHETAMINES LEVEL URINE NEGATIVE (NEGATIVE); BARBITURATES URINE NEGATIVE (NEGATIVE); BENZODIAZEPINES URINE NEGATIVE (NEGATIVE); CANNABINOIDS URINE POSITIVE (NEGATIVE); COCAINE METABOLITE URINE NEGATIVE (NEGATIVE); METHADONE URINE NEGATIVE (NEGATIVE); OPIATES URINE NEGATIVE (NEGATIVE); PHENCYCLIDINE URINE NEGATIVE (NEGATIVE)
--- NOTE | 2019-07-19 11:22 | REP ---
RENAL ULTRASOUND: Real-time sonographic evaluation of the kidneys performed. Kidneys are normal in size and echotexture, right kidney measuring 10.0 x 4.9 x 4.4 cm and left kidney 11.2 x 5.4 x 5.7 cm. There is no hydronephrosis bilaterally. No renal stone is visualized and there is no evidence of renal mass. There is a nodule above the left kidney consistent with an adrenal nodule which has remained stable compared to prior CT scans, measuring 2.8 x 2.2 x 2.2 cm. IMPRESSION: No evidence of hydronephrosis bilaterally. No definite renal stone identified. Electronically Signed by Everett Whelan MD 07/19/2019 03:07 P
[2019-07-19 13:01] VITALS: BP 133/86
== END 2019-07-19 13:08 | disposition home or self-care (01) ==
LOC: M ED 09:50
DX: D72.829 Elevated white blood cell count, unspecified (principal); M54.5 Low back pain; F12.288 Cannabis dependence with other cannabis-induced disorder; E27.9 Disorder of adrenal gland, unspecified; E78.5 Hyperlipidemia, unspecified; F33.9 Major depressive disorder, recurrent, unspecified; F41.9 Anxiety disorder, unspecified; Z79.899 Other long term (current) drug therapy; F17.210 Nicotine dependence, cigarettes, uncomplicated

== ENCOUNTER → 2019-09-07 | Outpatient (CLI) | payer OTHER ==
[~2019-09-07] MED LIST changes: +REGL10TA6 PO; +VITA50005 PO
--- NOTE | 2019-09-07 10:39 | REP ---
REASON FOR EXAM: Vomiting and hematuria. FINDINGS: KUB shows the intestinal gas pattern to be nonspecific. The organ silhouettes insofar as delineated are unremarkable. There is no evidence of free intraperitoneal air. The stool pattern appears to be within normal limits. IMPRESSION: Nonspecific. Electronically Signed by Jc Brothers DO 09/07/2019 11:09 A
== END ==
LOC: M WUC 09:58
PROVIDERS: ATTEND Physician Assistant
DX: R11.15 Cyclical vomiting syndrome unrelated to migraine (principal); R31.9 Hematuria, unspecified

== ENCOUNTER 2019-09-12 15:36 | Emergency (ER) | payer OTHER ==
[~2019-09-12] VITALS: Ht 172.7 cm; Wt 77.4 kg
[~2019-09-12 15:36] MED LIST changes: -LACT10SO29 PO; +LACT20EL PO; -REGL10TA6 PO; -VITA50005 PO
[2019-09-12] MEDS ORDERED: VITA50005 PO (15:48)
[2019-09-12] MEDS ORDERED: SIMV40TA20 PO (15:48)
[2019-09-12] MEDS ORDERED: METOCLOPRAMIDE INJ 10MG/2ML VIAL (J2765 PER 1) As Ordered ONE (16:28)
[2019-09-12] MEDS ORDERED: METOCLOPRAMIDE INJ 10MG/2ML VIAL (J2765 PER 1) IV ONE (16:30)
[2019-09-12] MEDS ORDERED: KETOROLAC 30 MG/ML 1ML VIAL IV ONE (16:30)
[2019-09-12] MEDS ORDERED: NS 1,000 ML IV ONE (16:30)
[2019-09-12 16:57] LABS: BASO # 0.1 10^3/uL (0.0-0.2); BASO % 0.6 % (0.0-1.0); EOS % 0.1 % (0.0-3.0); HEMATOCRIT 41.3 % (36.0-47.0); HEMOGLOBIN 14.9 g/dl (12.0-15.5); LYMPH # 1.7 10^3/uL (1.5-5.0); LYMPH % 14.3 % (24.0-44.0); MEAN CORPUSCULAR HEMOGLOBIN 33.3 pg (27.0-33.0); MEAN CORPUSCULAR HGB CONC 36.1 g/dl (32.0-36.5); MEAN CORPUSCULAR VOLUME 92.2 fl (80.0-96.0); MONO # 0.9 10^3/uL (0.0-0.8); MONO % 7.5 % (0.0-5.0); NEUTROPHILS # 9.1 10^3/uL (1.5-8.5); NEUTROPHILS % 77.2 % (36.0-66.0); PLATELET COUNT, AUTOMATED 279 10^3/uL (150-450); RED BLOOD COUNT 4.48 10^6/uL (4.00-5.40); WHITE BLOOD COUNT 11.8 10^3/uL (4.0-10.0)
[2019-09-12 17:10] LABS: BILIRUBIN,DIRECT 0.1 MG/DL (0.0-0.2); BILIRUBIN,TOTAL 0.4 MG/DL (0.2-1.0); TOTAL PROTEIN 7.3 GM/DL (6.4-8.2)
[2019-09-12] MEDS ORDERED: PROMETHAZINE INJ 25 MG/ML VIAL (J2550) IV ONE (18:00)
[2019-09-12 18:12] LABS: AMPHETAMINES LEVEL URINE NEGATIVE (NEGATIVE); BARBITURATES URINE NEGATIVE (NEGATIVE); BENZODIAZEPINES URINE NEGATIVE (NEGATIVE); CANNABINOIDS URINE POSITIVE (NEGATIVE); COCAINE METABOLITE URINE NEGATIVE (NEGATIVE); METHADONE URINE NEGATIVE (NEGATIVE); OPIATES URINE NEGATIVE (NEGATIVE); PHENCYCLIDINE URINE NEGATIVE (NEGATIVE)
[2019-09-12] MEDS ORDERED: REGL10TA6 PO (18:34)
[2019-09-12 19:31] VITALS: BP 151/90
== END 2019-09-12 19:41 | disposition home or self-care (01) ==
LOC: M ED 15:36
DX: R11.10 Vomiting, unspecified (principal); E78.5 Hyperlipidemia, unspecified; F33.9 Major depressive disorder, recurrent, unspecified; F41.9 Anxiety disorder, unspecified; Z87.19 Personal history of other diseases of the digestive system; Z78.0 Asymptomatic menopausal state; Z79.899 Other long term (current) drug therapy; F17.210 Nicotine dependence, cigarettes, uncomplicated
CPT/HCPCS: 80047; 80076; 80307; 81001; 83690; 85025; 96361; 96374; 96375; 99284; J1885; J2765

== ENCOUNTER → 2019-12-03 | Outpatient (REF) | payer OTHER ==
[~2019-12-03] MED LIST changes: +PANT40TA29; -PANT40TA3; +PROM25TA12; +REGL10TA6 PO; +VITA50005 PO
[2020-01-29 00:43] LABS: ALBUMIN 4.2 GM/DL (3.2-5.2); ALT/SGPT 17 U/L (12-78); AMYLASE 49 U/L (25-115); BILIRUBIN,DIRECT 0.1 MG/DL (0.0-0.2); BILIRUBIN,TOTAL 0.4 MG/DL (0.2-1.0); BLOOD UREA NITROGEN 10 MG/DL (7-18); CALCIUM LEVEL 10.6 MG/DL (8.5-10.1); CARBON DIOXIDE LEVEL 24 MEQ/L (21-32); CHLORIDE LEVEL 108 MEQ/L (98-107); FERRITIN 79 NG/ML (8-252); GLUCOSE, FASTING 98 MG/DL (70-100); HEPATITIS C VIRUS ABY INDEX 0.2 INDEX (<0.8); IRON (FE) 67 UG/DL (50-170); LIPASE 220 U/L (73-393); PERCENT SATURATION 19.3 % (13.2-45.0); POTASSIUM SERUM 4.3 MEQ/L (3.5-5.1); SODIUM LEVEL 139 MEQ/L (136-145); TOTAL IRON BINDING CAPACITY 347 UG/DL (250-450); TOTAL PROTEIN 7.7 GM/DL (6.4-8.2)
== END ==
LOC: M WUC 16:14
PROVIDERS: ATTEND Physician Assistant
DX: K52.9 Noninfective gastroenteritis and colitis, unspecified (principal); R11.2 Nausea with vomiting, unspecified; K86.1 Other chronic pancreatitis

== ENCOUNTER → 2020-01-11 | Outpatient (CLI) | payer OTHER | LOC: M LABSMTC 10:19 | PROVIDERS: ATTEND Anesthesiology | DX: Z01.812 Encounter for preprocedural laboratory examination (principal); Z20.828 Contact with and (suspected) exposure to other viral communicable diseases | CPT/HCPCS: C9803; U0003 ==

== ENCOUNTER 2020-01-16 08:27 | Day surgery (SDC) | payer OTHER ==
[~2020-01-16] VITALS: Ht 172.7 cm; Wt 78.5 kg
[~2020-01-16 08:27] MED LIST changes: +LR 1,000 ML IV ONE; +ceFAZolin SOD 2 GM in IV 1 EA IV ONE
[2020-01-16] MEDS ORDERED: propofoL 200 MG/20 ML VIAL As Ordered ONE (10:08)
[2020-01-16] MEDS ORDERED: LIDOCAINE 2% 100MG/5ML SDV (FOR ANES.) As Ordered ONE (10:08)
[2020-01-16] MEDS ORDERED: fentaNYL 100 MCG/2 ML INJECTION (J3010) As Ordered ONE (10:09)
[2020-01-16] MEDS ORDERED: MIDAZOLAM INJ 2MG/2ML VIAL (J2250 PER 1MG) As Ordered ONE (10:09)
[2020-01-16] MEDS ORDERED: dexameTHASONE 4 MG/ML 1ML VIAL (J1100 PER 1MG) As Ordered ONE (10:32)
[2020-01-16] MEDS ORDERED: LIDOCAINE 1% MDV 20ML VIAL As Ordered ONE (10:32)
[2020-01-16] MEDS ORDERED: BUPIVACAINE HCL 0.5% 30 ML VIAL As Ordered ONE (10:32)
[2020-01-16] MEDS ORDERED: HYDR-3713 PO (11:42)
[2020-01-16 12:15] VITALS: BP 146/81
--- NOTE | 2020-01-22 15:15 | RO ---
DATE OF OPERATION: 01/16/2020 SURGEON: Phil Patel DPM SKIP MINER: None. PREOPERATIVE DIAGNOSIS: Left 2nd metatarsal deformity. POSTOPERATIVE DIAGNOSIS: Left 2nd metatarsal deformity. PROCEDURE: Left 2nd metatarsal shortening osteotomy. ANESTHESIA: Monitored anesthesia care. PREOPERATIVE INJECTION: 10 mL of a 1:1 mixture of 1% Lidocaine plain with 0.5% Marcaine plain. ESTIMATED BLOOD LOSS: Minimal. MATERIALS: Arthrex 2.5 headless compression screw, 3-0 and 4-0 Vicryl, and 4-0 nylon. INJECTABLES: 1 mL of Decadron 4 mg/mL, 10 mL 1% Lidocaine plain. COMPLICATIONS: None. CONDITION: Stable. INDICATIONS: The patient is a 49-year-old female who has pain in her 2nd metatarsal head. She presents today for surgical correction. The patient's side and site were identified and marked preoperatively. Consent was reviewed and obtained. The risks, complications and alternatives to the procedure explained to the patient in detail and all questions were answered. PROCEDURE: The patient was brought to the operating room and placed on the operating room table in the supine position. Monitored anesthesia care was delivered by the anesthesia team. Preoperative injection of 10 mL of a 1:1 mixture of 1% Lidocaine plain and 0.5% Marcaine plain were injected in the left foot. The left foot was prepped and draped in normal sterile fashion. The tourniquet was applied on the left ankle and inflated to 250 mmHg. A dorsal incision was drawn over the 2nd metatarsal site and carried through with a #15 blade. Dissection was carried until the metatarsal joint was identified. The capsulotomy was performed exposing the 2nd metatarsal head. The lateral and plantar structures were released; McGlamry elevator was used to free the soft tissue attachments. Following this an osteotomy was performed of the head, transposing the bone proximally approximately 4 mm. This was fixated with Arthrex 2.5 headless compression screw. Bone wedge was removed with rongeur and smoothed with rasp. Site was irrigated with normal saline. Capsular repair was performed with 3-0 Vicryl, subcutaneous closure with 4-0 Vicryl and skin closure with 4-0 nylon. 10 mL of 1% Lidocaine plain were injected during the procedure. Sterile dressings were applied. Tourniquet was deflated. The patient was brought PACU with vital signs stable and neurovascular status intact. She will be partial weightbearing. She will follow up in the office in 2 days. KEENAN
== END 2020-01-16 12:48 | disposition home or self-care (01) ==
LOC: M SDC 08:27
PROVIDERS: ATTEND Podiatrist Foot & Ankle Surgery
DX: M21.6X2 Other acquired deformities of left foot (principal); F17.218 Nicotine dependence, cigarettes, with other nicotine-induced disorders; F12.10 Cannabis abuse, uncomplicated; E78.5 Hyperlipidemia, unspecified; Z79.899 Other long term (current) drug therapy; M54.9 Dorsalgia, unspecified; F41.9 Anxiety disorder, unspecified; F32.9 Major depressive disorder, single episode, unspecified
CPT/HCPCS: 28308; 81025; 88300; C1713; J0690; J1100; J2250; J3010

== ENCOUNTER → 2020-03-07 | Outpatient (CLI) | payer OTHER ==
[~2020-03-07] MED LIST changes: -LR 1,000 ML IV ONE; -ceFAZolin SOD 2 GM in IV 1 EA IV ONE
[2020-03-07 12:53] LABS: BASO # 0.1 10^3/uL (0.0-0.2); BASO % 0.6 % (0.0-1.0); EOS # 0.1 10^3/uL (0.0-0.5); EOS % 0.7 % (0.0-3.0); HEMATOCRIT 47.1 % (36.0-47.0); HEMOGLOBIN 15.5 g/dl (12.0-15.5); LYMPH # 2.6 10^3/uL (1.5-5.0); LYMPH % 18.5 % (24.0-44.0); MEAN CORPUSCULAR HEMOGLOBIN 32.1 pg (27.0-33.0); MEAN CORPUSCULAR HGB CONC 32.9 g/dl (32.0-36.5); MEAN CORPUSCULAR VOLUME 97.5 fl (80.0-96.0); MONO # 1.1 10^3/uL (0.0-0.8); MONO % 7.6 % (0.0-5.0); NEUTROPHILS # 10.2 10^3/uL (1.5-8.5); NEUTROPHILS % 72.2 % (36.0-66.0); PLATELET COUNT, AUTOMATED 284 10^3/uL (150-450); RED BLOOD COUNT 4.83 10^6/uL (4.00-5.40); WHITE BLOOD COUNT 14.1 10^3/uL (4.0-10.0)
[2020-03-07 13:32] LABS: ALBUMIN 4.2 GM/DL (3.2-5.2); BILIRUBIN,TOTAL 0.4 MG/DL (0.2-1.0); CALCIUM LEVEL 10.1 MG/DL (8.5-10.1); CHOLESTEROL RISK RATIO 2.879 (<5); CREATININE FOR GFR 1.16 MG/DL (0.55-1.30); GLOMERULAR FILTRATION RATE 53.1 (>58); POTASSIUM SERUM 4.8 MEQ/L (3.5-5.1); TOTAL 25(OH) VITAMIN D 40.6 NG/ML (30.0-100.0); TOTAL PROTEIN 7.8 GM/DL (6.4-8.2)
== END ==
LOC: M WUC 10:02
PROVIDERS: ATTEND Physician Assistant
DX: E78.2 Mixed hyperlipidemia (principal); J45.20 Mild intermittent asthma, uncomplicated; E55.9 Vitamin D deficiency, unspecified

== ENCOUNTER → 2020-03-12 | Outpatient (CLI) | payer OTHER ==
--- NOTE | 2020-03-12 14:56 | REPMRS ---
Patient History The patient states she has not had a clinical breast exam in over a year. No known family history of cancer. Benign stereotactic core biopsy of the right breast. Took hormonal contraceptives for 6 years. 3D TOMOSYNTHESIS WAS PERFORMED. The [facility] lifetime risk for breast cancer is 10.0%. Volpara breast density b. Digital Woman Screen Mammo: March 12, 2020 - Exam #: [id number] Bilateral CC and MLO view(s) were taken. Technologist: Johnna Panda Technologist Prior study comparison: June 22, 2018, bilateral digital mammo screening bilat, performed at [facility]. July 20, 2013, bilateral bilat screen digital mammo, performed at [facility] ([facility]). FINDINGS: There are scattered fibroglandular densities. There has been no change in the appearance of the mammogram from the prior studies. There is a mild amount of residual fibroglandular tissue which is fairly symmetric. There is no interval development of dominant mass, architectural distortion, or clustered microcalcification suggestive of malignancy. Assessment: BI-RADS/ACR category 1 mammogram. Negative Mammogram. Recommendation Routine screening mammogram in 1 year (for women over age 40). This mammogram was interpreted with the aid of an FDA-approved computer-aided dectection system. Electronically Signed By: Everett Whelan MD 03/12/20 [id number]
== END ==
LOC: M WHC 14:11
PROVIDERS: ATTEND Physician Assistant
DX: Z12.31 Encounter for screening mammogram for malignant neoplasm of breast (principal); Z86.018 Personal history of other benign neoplasm; Z92.0 Personal history of contraception

== ENCOUNTER → 2020-03-12 | Outpatient (CLI) | payer OTHER ==
[2020-03-12 12:17] LABS: BASO # 0.1 10^3/uL (0.0-0.2); BASO % 0.9 % (0.0-1.0); EOS # 0.1 10^3/uL (0.0-0.5); EOS % 1.1 % (0.0-3.0); HEMATOCRIT 43.6 % (36.0-47.0); HEMOGLOBIN 14.8 g/dl (12.0-15.5); LYMPH # 3.1 10^3/uL (1.5-5.0); LYMPH % 24.1 % (24.0-44.0); MEAN CORPUSCULAR HEMOGLOBIN 32.9 pg (27.0-33.0); MEAN CORPUSCULAR HGB CONC 33.9 g/dl (32.0-36.5); MEAN CORPUSCULAR VOLUME 96.9 fl (80.0-96.0); MONO # 1.1 10^3/uL (0.0-0.8); MONO % 8.6 % (0.0-5.0); NEUTROPHILS # 8.3 10^3/uL (1.5-8.5); NEUTROPHILS % 65.1 % (36.0-66.0); PLATELET COUNT, AUTOMATED 296 10^3/uL (150-450); WHITE BLOOD COUNT 12.7 10^3/uL (4.0-10.0)
[2020-03-12 12:58] LABS: ALBUMIN 4.1 GM/DL (3.2-5.2); ALT/SGPT 16 U/L (12-78); BILIRUBIN,TOTAL 0.5 MG/DL (0.2-1.0); BLOOD UREA NITROGEN 14 MG/DL (7-18); CARBON DIOXIDE LEVEL 24 MEQ/L (21-32); CHLORIDE LEVEL 109 MEQ/L (98-107); CREATININE FOR GFR 1.14 MG/DL (0.55-1.30); GLOMERULAR FILTRATION RATE 54.2 (>58); GLUCOSE, FASTING 102 MG/DL (70-100); POTASSIUM SERUM 4.4 MEQ/L (3.5-5.1); RHEUMATOID FACTOR QUANT < 10.0 IU/ML (<15.0); SODIUM LEVEL 141 MEQ/L (136-145); TOTAL PROTEIN 7.4 GM/DL (6.4-8.2)
[2020-03-12 12:59] LABS: ERYTHROCYTE SEDIMENTATION RATE 13 mm/hr (0-20)
[2020-03-12 13:06] LABS: TOTAL 25(OH) VITAMIN D 37.9 NG/ML (30.0-100.0)
[2020-03-14 15:13] LABS: ANTI DOUBLE STRAND-DNA AB 1 IU/mL (0-9); ANTINUCLEAR ANTIBODIES DIRECT Positive (Negative); RNP ANTIBODIES 1.2 AI (0.0-0.9); SJOGREN'S ANTI SS-A <0.2 AI (0.0-0.9); SJOGREN'S ANTI SS-B <0.2 AI (0.0-0.9); SMITH ANTIBODIES <0.2 AI (0.0-0.9)
== END ==
LOC: M WUC 09:40
PROVIDERS: ATTEND Psychiatry & Neurology Neurology
DX: R51.9 Headache, unspecified (principal); R42 Dizziness and giddiness

== ENCOUNTER → 2020-06-24 | Outpatient (CLI) | payer OTHER ==
--- NOTE | 2020-06-24 12:31 | REP ---
INDICATION: POSTCOITAL AND CONTACT BLEEDING. COMPARISON: 06/22/2018. TECHNIQUE: Transabdominal and transvaginal scanning performed. FINDINGS: Uterine dimensions are 5.5 x 2.9 x 3.8 cm. Endometrial echo is 3 mm in AP dimension and centrally placed. Uterus and endometrium are not well visualized view due to retroflexion. The bladder measures 8.2 x 7.3 x 9.5 cm. The right ovary has dimensions of 1.9 x 1.5 x 2.1 cm. It's Doppler flow is normal with a resistive index of 0.54. The left ovary dimensions are 2.2 x 1.5 x 1.7 cm. It's Doppler flow was normal with resistive index of 0.53. There is no adnexal mass identified. No free fluid is seen in the cul-de-sac. Tiny echogenic foci in the ovaries may represent tiny calcifications. IMPRESSION: Retroflexed uterus is not optimally evaluated. Endometrium not well evaluated. No adnexal mass or free fluid. <Electronically signed by Everett Whelan > 06/24/20 [id number]
== END ==
LOC: M RAD 11:36
PROVIDERS: ATTEND Nurse Practitioner Family
DX: N93.0 Postcoital and contact bleeding (principal)

== ENCOUNTER → 2021-06-26 | Outpatient (CLI) | payer OTHER ==
[~2021-06-26] MED LIST changes: +ERGO500029 PO; -VITA50005 PO
[2021-06-26 11:27] LABS: BASO # 0.1 10^3/uL (0.0-0.2); BASO % 0.9 % (0.0-1.0); EOS # 0.3 10^3/uL (0.0-0.5); EOS % 2.6 % (0.0-3.0); LYMPH # 3.4 10^3/uL (1.5-5.0); LYMPH % 35.7 % (24.0-44.0); MEAN CORPUSCULAR HGB CONC 33.3 g/dl (32.0-36.5); MEAN CORPUSCULAR VOLUME 95.9 fl (80.0-96.0); MONO % 10.1 % (2.0-8.0); NEUTROPHILS # 4.8 10^3/uL (1.5-8.5); NEUTROPHILS % 50.4 % (36.0-66.0); PLATELET COUNT, AUTOMATED 233 10^3/uL (150-450); RED BLOOD COUNT 4.38 10^6/uL (4.00-5.40); WHITE BLOOD COUNT 9.5 10^3/uL (4.0-10.0)
[2021-06-26 12:00] LABS: ALBUMIN 3.5 GM/DL (3.2-5.2); ALT/SGPT 17 U/L (12-78); BILIRUBIN,TOTAL 0.2 MG/DL (0.2-1.0); BLOOD UREA NITROGEN 17 MG/DL (7-18); CALCIUM LEVEL 9.6 MG/DL (8.5-10.1); CARBON DIOXIDE LEVEL 29 MEQ/L (21-32); CHLORIDE LEVEL 109 MEQ/L (98-107); CHOLESTEROL LEVEL 178 MG/DL (<200); CHOLESTEROL RISK RATIO 3.296 (<5); GLOMERULAR FILTRATION RATE > 60.0 (>51); GLUCOSE, FASTING 85 MG/DL (70-100); HDL CHOLESTEROL 54 MG/DL (>40); HEMOGLOBIN A1c 5.1 %; LDL CHOLESTEROL 110 MG/DL (<100); NON-HDL-C 124 MG/DL; POTASSIUM SERUM 5.2 MEQ/L (3.5-5.1); SODIUM LEVEL 141 MEQ/L (136-145); TOTAL 25(OH) VITAMIN D 80.2 NG/ML (30.0-100.0); TOTAL PROTEIN 6.9 GM/DL (6.4-8.2); TRIGLYCERIDES LEVEL 68 MG/DL (<150)
== END ==
LOC: M WUC 08:37
PROVIDERS: ATTEND Internal Medicine Hematology
DX: E78.2 Mixed hyperlipidemia (principal); F17.200 Nicotine dependence, unspecified, uncomplicated; K21.9 Gastro-esophageal reflux disease without esophagitis; E55.9 Vitamin D deficiency, unspecified; N18.31 Chronic kidney disease, stage 3a

== ENCOUNTER → 2021-11-24 | Outpatient (REF) | payer OTHER ==
[2021-11-24 13:44] LABS: MAGNESIUM LEVEL 2.2 MG/DL (1.8-2.4); PHOSPHORUS LEVEL 3.2 MG/DL (2.5-4.9)
[2021-11-24 14:45] LABS: TOTAL 25(OH) VITAMIN D 44.8 NG/ML (30.0-100.0)
== END ==
LOC: M SFHCRHEU 10:09
PROVIDERS: ATTEND Internal Medicine
DX: M79.10 Myalgia, unspecified site (principal)

== ENCOUNTER → 2021-11-27 | Outpatient (CLI) | payer OTHER | LOC: M WUC 11:45 | PROVIDERS: ATTEND Internal Medicine | DX: M25.751 Osteophyte, right hip (principal); M25.752 Osteophyte, left hip ==

== ENCOUNTER 2022-03-14 00:13 | Emergency (ER) | payer OTHER ==
[~2022-03-14] VITALS: Ht 172.7 cm; Wt 83.6 kg
[2022-03-14] MEDS ORDERED: OSEL75CA PO (02:44)
[2022-03-14] MEDS ORDERED: OSELTAMIVIR PHOSPHATE 75 MG CAP (TAMIFLU) PO ONE (02:45)
[2022-03-14 02:51] VITALS: BP 128/71
== END 2022-03-14 03:06 | disposition home or self-care (01) ==
LOC: M ED 00:13
DX: J09.X2 Influenza due to identified novel influenza A virus with other respiratory manifestations (principal); R00.0 Tachycardia, unspecified; I51.9 Heart disease, unspecified; E78.5 Hyperlipidemia, unspecified; F17.200 Nicotine dependence, unspecified, uncomplicated; F10.10 Alcohol abuse, uncomplicated; Z79.899 Other long term (current) drug therapy

== ENCOUNTER 2022-07-03 21:52 | Emergency (ER) | payer OTHER ==
[~2022-07-03] VITALS: Ht 172.7 cm; Wt 76.8 kg
[~2022-07-03 21:52] MED LIST changes: +OSEL75CA PO
[2022-07-03 21:53] VITALS: BP 144/84
== END 2022-07-04 01:07 | disposition left against medical advice (07) ==
LOC: M ED 21:52
DX: Z53.21 Procedure and treatment not carried out due to patient leaving prior to being seen by health care provider (principal)

== ENCOUNTER → 2022-07-07 | Outpatient (CLI) | payer OTHER | LOC: M PLAIMG 10:27 | PROVIDERS: ATTEND Physician Assistant | DX: M25.551 Pain in right hip (principal); M79.18 Myalgia, other site; M79.651 Pain in right thigh; W19.XXXA Unspecified fall, initial encounter; Y92.9 Unspecified place or not applicable ==

== ENCOUNTER 2022-08-04 21:53 | Emergency (ER) | payer OTHER ==
[~2022-08-04] VITALS: Ht 172.7 cm; Wt 72.1 kg
[2022-08-04 21:54] VITALS: BP 129/83
[2022-08-04] MEDS ORDERED: IBUP-1857 PO (22:01)
[2022-08-05] MEDS ORDERED: KETOROLAC 60MG 2ML VIAL IM ONE (01:00)
[2022-08-05] MEDS ORDERED: methocarbamoL 750 MG TAB PO ONE (02:40)
[2022-08-05] MEDS ORDERED: METH-1165 PO (02:42)
[2022-08-05] MEDS ORDERED: NAPR-837 PO (02:42)
== END 2022-08-05 03:25 | disposition home or self-care (01) ==
LOC: M ED 21:53
DX: M54.16 Radiculopathy, lumbar region (principal); E78.5 Hyperlipidemia, unspecified; F17.200 Nicotine dependence, unspecified, uncomplicated; F12.10 Cannabis abuse, uncomplicated; Z79.02 Long term (current) use of antithrombotics/antiplatelets; Z79.1 Long term (current) use of non-steroidal anti-inflammatories (NSAID); Z79.899 Other long term (current) drug therapy
CPT/HCPCS: 72131; 96372; 99282; J1885

== ENCOUNTER → 2022-09-21 | Outpatient (CLI) | payer OTHER ==
[~2022-09-21] MED LIST changes: +IBUP-1857 PO; +METH-1165 PO; +NAPR-837 PO
== END ==
LOC: M PLAIMG 07:35
PROVIDERS: ATTEND Orthopaedic Surgery
DX: M47.26 Other spondylosis with radiculopathy, lumbar region (principal); M51.36 Other intervertebral disc degeneration, lumbar region; M51.37 Other intervertebral disc degeneration, lumbosacral region

== ENCOUNTER → 2022-10-15 | Outpatient (RCR) | payer OTHER | LOC: M PT 09-20 08:15 | PROVIDERS: ATTEND Orthopaedic Surgery | DX: M47.26 Other spondylosis with radiculopathy, lumbar region (principal) ==

== ENCOUNTER 2022-11-05 07:45 | Outpatient (RCR) | payer OTHER | END 2022-11-15 | LOC: M PT 07:45 | PROVIDERS: ATTEND Orthopaedic Surgery | DX: M47.26 Other spondylosis with radiculopathy, lumbar region (principal) ==

== ENCOUNTER → 2022-11-15 | Outpatient (CLI) | payer OTHER ==
[2022-11-15 09:58] LABS: HEMATOCRIT 42.3 % (36.0-47.0); HEMOGLOBIN 14.3 g/dl (12.0-15.5); MEAN CORPUSCULAR HGB CONC 33.8 g/dl (32.0-36.5); MEAN CORPUSCULAR VOLUME 100.5 fl (80.0-96.0); PLATELET COUNT, AUTOMATED 298 10^3/uL (150-450); RED BLOOD COUNT 4.21 10^6/uL (4.00-5.40)
[2022-11-15 10:08] LABS: HEMOGLOBIN A1c 4.6 % (4.0-6.0)
[2022-11-15 10:25] LABS: ALBUMIN 4.1 G/DL (3.2-5.2); ALKALINE PHOSPHATASE 92 U/L (46-116); ALT/SGPT 13 U/L (7.0-40); AST/SGOT < 8 U/L (<34); BILIRUBIN,TOTAL 0.6 MG/DL (0.3-1.2); BLOOD UREA NITROGEN 12 MG/DL (9-23); C REACTIVE PROTEIN QUANTITATIV < 0.40 MG/DL (<1.0); CALCIUM LEVEL 10.1 MG/DL (8.5-10.1); CARBON DIOXIDE LEVEL 27 MMOL/L (20-31); CHLORIDE LEVEL 107 MMOL/L (98-107); CHOLESTEROL LEVEL 192 MG/DL (<200); CHOLESTEROL RISK RATIO 3.21 (<5); CREATININE FOR GFR 0.86 MG/DL (0.55-1.30); FREE T4 1.02 NG/DL (0.89-1.76); GLOMERULAR FILTRATION RATE > 60.0 (>51); GLUCOSE, FASTING 105 MG/DL (60-100); HDL CHOLESTEROL 59.8 MG/DL (>40); LDL CHOLESTEROL 119.2 MG/DL (<100); NON-HDL-C 132.2 MG/DL; POTASSIUM SERUM 4.4 MMOL/L (3.5-5.1); SODIUM LEVEL 143 MMOL/L (136-145); THYROID STIMULATING HORMONE 2.441 uIU/ML (0.55-4.78); TOTAL PROTEIN 6.8 G/DL (5.7-8.2); TRIGLYCERIDES LEVEL 65 MG/DL (<150)
[2022-11-15 10:26] LABS: TOTAL 25(OH) VITAMIN D 32.3 NG/ML (20.0-100.0)
[2022-11-15 10:28] LABS: VITAMIN B12 LEVEL 349 PG/ML (211-911)
[2022-11-15 20:27] LABS: CREATININE, URINE 312.9 MG/DL; MAU/CREAT RATIO 8.3 MCG/MG (0.0-30.0)
== END ==
LOC: M WUC 08:43
PROVIDERS: ATTEND Internal Medicine Hematology
DX: E78.2 Mixed hyperlipidemia (principal)

== ENCOUNTER → 2022-11-22 | Outpatient (CLI) | payer OTHER | LOC: M WHC 15:01 | PROVIDERS: ATTEND Physician Assistant Medical | DX: N63.13 Unspecified lump in the right breast, lower outer quadrant (principal); N63.21 Unspecified lump in the left breast, upper outer quadrant ==

== ENCOUNTER 2023-04-20 08:27 | Emergency (ER) | payer OTHER, SELFPAY ==
[~2023-04-20] VITALS: Ht 172.7 cm; Wt 67.7 kg
[2023-04-20 14:35] VITALS: O2SAT 93
[2023-04-20 14:36] VITALS: BP 131/74; TEMP 98.4; O2SAT 93
[2023-04-20] MEDS ORDERED: PRED20TA PO (14:50)
[2023-04-20] MEDS ORDERED: DOXY-444 PO (14:50)
== END 2023-04-20 14:59 | disposition home or self-care (01) ==
LOC: M ED 08:27
DX: J20.9 Acute bronchitis, unspecified (principal); E78.5 Hyperlipidemia, unspecified; F41.9 Anxiety disorder, unspecified; F32.A Depression, unspecified; F12.10 Cannabis abuse, uncomplicated; F17.200 Nicotine dependence, unspecified, uncomplicated; Z87.442 Personal history of urinary calculi; Z79.52 Long term (current) use of systemic steroids; Z79.899 Other long term (current) drug therapy

== ENCOUNTER 2024-01-28 09:53 | Day surgery (SDC) | payer OTHER, SELFPAY ==
[~2024-01-28] VITALS: Ht 172.7 cm; Wt 75.4 kg
[~2024-01-28 09:53] MED LIST changes: +DOXY-440 PO; +ONDA-282 PO; +ONDA-282 SL; -ONDA4TAB6 PO; -ONDA4TAB6 SL; +PRED20TA PO
[2024-01-28] MEDS: IBUPROFEN 600MG TAB PO ONE (10:32)
[2024-01-28 10:50] LABS: BASO # 0.1 10^3/uL (0.0-0.2); BASO % 0.6 % (0.0-1.0); EOS % 0.3 % (0.0-3.0); HEMATOCRIT 40.3 % (36.0-47.0); HEMOGLOBIN 13.6 g/dl (12.0-15.5); LYMPH # 2.9 10^3/uL (1.5-5.0); LYMPH % 21.3 % (24.0-44.0); MEAN CORPUSCULAR HEMOGLOBIN 32.5 pg (27.0-33.0); MEAN CORPUSCULAR HGB CONC 33.7 g/dl (32.0-36.5); MEAN CORPUSCULAR VOLUME 96.2 fl (80.0-96.0); MONO # 1.1 10^3/uL (0.0-0.8); MONO % 8.2 % (2.0-8.0); NEUTROPHILS # 9.3 10^3/uL (1.5-8.5); NEUTROPHILS % 69.4 % (36.0-66.0); PLATELET COUNT, AUTOMATED 282 10^3/uL (150-450); RED BLOOD COUNT 4.19 10^6/uL (4.00-5.40); WHITE BLOOD COUNT 13.5 10^3/uL (4.0-10.0)
[2024-01-28 11:30] LABS: HCG, SERUM QUALITATIVE NEGATIVE (NEGATIVE)
[2024-01-28 11:50] LABS: Trichomonas vaginalis (AMP) NOT DETECTED (NEGATIVE)
[2024-01-28 12:15] LABS: GC DNA AMPLIFICATION NEGATIVE (NEGATIVE)
[2024-01-28] MEDS ORDERED: ACET1TAB55 PO (13:32)
[2024-01-28] MEDS ORDERED: HOME MED LIST COMPLETE! XX SCH (13:35)
[2024-01-28] MEDS ORDERED: ONDANSETRON 4MG 2ML VIAL IV PRN (13:45)
[2024-01-28] MEDS ORDERED: MEPERIDINE 25 MG/ML 1ML VIAL IV PRN (13:45)
[2024-01-28] MEDS ORDERED: HYDROMORPHONE HCL 0.5 MG/ 0.5 ML SYRINGE IV PRN (13:45)
[2024-01-28] MEDS ORDERED: oxyCODONE 5MG TAB PO PRN (13:45)
[2024-01-28] MEDS ORDERED: fentaNYL 100 MCG/2 ML INJECTION IV PRN (13:45)
[2024-01-28] MEDS ORDERED: ceFAZolin 1GM VIAL As Ordered ONE (14:03)
[2024-01-28 14:04] LABS: ALKALINE PHOSPHATASE 79 U/L (46-116); ALT/SGPT 14 U/L (7.0-40); AST/SGOT 12 U/L (<34); BILIRUBIN,TOTAL 0.5 MG/DL (0.3-1.2); BLOOD UREA NITROGEN 16 MG/DL (9-23); CALCIUM LEVEL 10.2 MG/DL (8.5-10.1); CARBON DIOXIDE LEVEL 21 MMOL/L (20-31); CHLORIDE LEVEL 111 MMOL/L (98-107); CREATININE FOR GFR 0.82 MG/DL (0.55-1.30); GLOMERULAR FILTRATION RATE > 60.0 (>51); GLUCOSE, FASTING 95 MG/DL (60-100); POTASSIUM SERUM 4.5 MMOL/L (3.5-5.1); SODIUM LEVEL 140 MMOL/L (136-145)
[2024-01-28] MEDS: ceFAZolin 2 GM/D5W 50 ML IV BAG As Ordered ONE (14:09)
[2024-01-28] MEDS ORDERED: METOCLOPRAMIDE INJ 10MG/2ML VIAL As Ordered ONE (14:10)
[2024-01-28] MEDS ORDERED: fentaNYL 100 MCG/2 ML INJECTION As Ordered ONE (14:10)
[2024-01-28] MEDS ORDERED: ONDANSETRON 4MG 2ML VIAL As Ordered ONE (14:10)
[2024-01-28] MEDS ORDERED: LIDOCAINE 2% 100MG/5ML SDV (FOR ANES.) As Ordered ONE (14:10)
[2024-01-28] MEDS ORDERED: ACETAMINOPHEN 1000MG 100ML IV BAG As Ordered ONE (14:10)
[2024-01-28] MEDS ORDERED: KETOROLAC 60MG 2ML VIAL As Ordered ONE (14:10)
[2024-01-28] MEDS ORDERED: propofoL 200 MG/20 ML VIAL As Ordered ONE (14:10)
[2024-01-28] MEDS ORDERED: MIDAZOLAM INJ 2MG/2ML VIAL As Ordered ONE (14:27)
[2024-01-28 15:10] VITALS: TEMP 97.7
[2024-01-28] MEDS: VASOPRESSIN INJ 20UNITS/ML 1ML VIAL As Ordered ONE (15:13)
[2024-01-28 15:25] VITALS: BP 118/79; O2SAT 97
== END 2024-01-28 15:58 | disposition home or self-care (01) ==
LOC: M ED 09:53 → M SDC 13:33
PROVIDERS: ATTEND Obstetrics & Gynecology
DX: S31.41XA Laceration without foreign body of vagina and vulva, initial encounter (principal)
CPT/HCPCS: 36415; 57200; 76830; 76856; 80053; 81001; 84703; 85025; 86850; 86900; 86901; 87210; 87661; 87810; 87850; 99284; J0131; J0665; J0690; J1100; J1885; J2250; J2405; J2598; J2765; J3010

== ENCOUNTER → 2024-02-13 | Outpatient (CLI) | payer OTHER ==
[~2024-02-13] MED LIST changes: +ACET1TAB55 PO
[2024-02-13 18:01] LABS: FOLLICLE STIMULATING HORMONE 72.5 mIU/ML; LUTEINIZING HORMONE 34.4 mIU/ML
== END ==
LOC: M PLALAB 15:28
PROVIDERS: ATTEND Obstetrics & Gynecology
DX: N95.1 Menopausal and female climacteric states (principal)

== ENCOUNTER → 2024-05-24 | Outpatient (CLI) | payer OTHER ==
[2024-05-24 18:28] LABS: HEMOGLOBIN A1c 4.7 % (4.0-6.0)
[2024-05-24 18:42] LABS: CHOLESTEROL RISK RATIO 4.25 (<5); HDL CHOLESTEROL 55.5 MG/DL (>40); LDL CHOLESTEROL 162.7 MG/DL (<100); NON-HDL-C 180.5 MG/DL
== END ==
LOC: M PLALAB 15:01
PROVIDERS: ATTEND Student in an Organized Health Care Education/Training Program
DX: Z00.00 Encounter for general adult medical examination without abnormal findings (principal); E78.2 Mixed hyperlipidemia

== ENCOUNTER 2024-08-26 22:12 | Emergency (ER) | payer OTHER ==
[~2024-08-26] VITALS: Ht 172.7 cm; Wt 77.3 kg
[~2024-08-26 22:12] MED LIST changes: -FLOM0.4C39 PO; +TAMS-18 PO
[2024-08-26] MEDS: ACETAMINOPHEN 325 MG TAB PO ONE (23:31)
[2024-08-26] MEDS: IBUPROFEN 600MG TAB PO ONE (23:31)
[2024-08-26] MEDS: BOOSTRIX VACCINE (TETANUS/DIPHTH/ACEL. PERTUSSIS) 0.5ML SYR IM ONE (23:32)
[2024-08-26 23:42] VITALS: BP 133/70; TEMP 98.2; O2SAT 96
== END 2024-08-26 23:53 | disposition home or self-care (01) ==
LOC: M ED 22:12
DX: S60.511A Abrasion of right hand, initial encounter (principal); S60.512A Abrasion of left hand, initial encounter; V40.5XXA Car driver injured in collision with pedestrian or animal in traffic accident, initial encounter; M50.30 Other cervical disc degeneration, unspecified cervical region; E78.5 Hyperlipidemia, unspecified; F17.200 Nicotine dependence, unspecified, uncomplicated; Y92.410 Unspecified street and highway as the place of occurrence of the external cause; Y93.89 Activity, other specified; Y99.9 Unspecified external cause status; Z79.1 Long term (current) use of non-steroidal anti-inflammatories (NSAID); Z23 Encounter for immunization

== ENCOUNTER → 2024-11-02 | Outpatient (CLI) | payer OTHER | LOC: M PLAIMG 08:24 | PROVIDERS: ATTEND Student in an Organized Health Care Education/Training Program | DX: M25.551 Pain in right hip (principal); M25.552 Pain in left hip; M54.50 Low back pain, unspecified ==

== ENCOUNTER → 2024-11-16 | Outpatient (CLI) | payer OTHER | LOC: M RAD 09:48 | PROVIDERS: ATTEND Student in an Organized Health Care Education/Training Program | DX: F17.210 Nicotine dependence, cigarettes, uncomplicated (principal); J98.11 Atelectasis; J43.9 Emphysema, unspecified; R91.8 Other nonspecific abnormal finding of lung field ==

== ENCOUNTER 2024-12-12 08:50 | Outpatient (RCR) | payer OTHER | END 2024-12-16 | LOC: M PT 08:50 | PROVIDERS: ATTEND Student in an Organized Health Care Education/Training Program | DX: M54.16 Radiculopathy, lumbar region (principal) ==

== ENCOUNTER → 2025-01-02 | Outpatient (CLI) | payer OTHER ==
[2025-01-02 13:43] LABS: CHOLESTEROL LEVEL 233.0 MG/DL (<200); CHOLESTEROL RISK RATIO 3.68 (<5); LDL CHOLESTEROL 150.9 MG/DL (<100); NON-HDL-C 169.7 MG/DL; TRIGLYCERIDES LEVEL 94.0 MG/DL (<150)
== END ==
LOC: M PLAIMG 09:38
PROVIDERS: ATTEND Student in an Organized Health Care Education/Training Program
DX: E78.5 Hyperlipidemia, unspecified (principal); M25.512 Pain in left shoulder

== ENCOUNTER → 2025-01-10 | Outpatient (REF) | payer OTHER | LOC: M PLALAB 14:06 | PROVIDERS: ATTEND Physician Assistant | DX: Z12.4 Encounter for screening for malignant neoplasm of cervix (principal); R87.612 Low grade squamous intraepithelial lesion on cytologic smear of cervix (LGSIL) ==

== ENCOUNTER → 2025-01-10 | Outpatient (CLI) | payer OTHER | LOC: M WHC 12:57 | PROVIDERS: ATTEND Physician Assistant | DX: Z12.31 Encounter for screening mammogram for malignant neoplasm of breast (principal) ==

== ENCOUNTER 2025-01-14 09:41 | Outpatient (RCR) | payer OTHER | END 2025-01-15 | LOC: M PT 09:41 | PROVIDERS: ATTEND Student in an Organized Health Care Education/Training Program | DX: M54.16 Radiculopathy, lumbar region (principal) ==

== ENCOUNTER 2025-02-11 11:15 | Outpatient (RCR) | payer OTHER | END 2025-02-15 | LOC: M PT 11:15 | PROVIDERS: ATTEND Student in an Organized Health Care Education/Training Program | DX: M54.16 Radiculopathy, lumbar region (principal) ==

== ENCOUNTER 2025-02-18 13:13 | Outpatient (RCR) | payer OTHER | END 2025-03-17 | LOC: M PT 13:13 | PROVIDERS: ATTEND Student in an Organized Health Care Education/Training Program | DX: M54.16 Radiculopathy, lumbar region (principal) ==

== ENCOUNTER 2025-03-13 08:54 | Outpatient (RCR) | payer OTHER | END 2025-03-17 | LOC: M PT 08:54 | PROVIDERS: ATTEND Student in an Organized Health Care Education/Training Program | DX: M25.512 Pain in left shoulder (principal) ==

== ENCOUNTER → 2025-04-17 | Outpatient (RCR) | payer OTHER | LOC: M PT 03-18 08:57 | PROVIDERS: ATTEND Student in an Organized Health Care Education/Training Program | DX: M25.512 Pain in left shoulder (principal) ==